=== PATIENT | female | born 1955 | race Caucasian/White ===

== ENCOUNTER 2020-06-15 14:39 | Inpatient (IN) | payer MEDICARE, MEDICAID ==
[~2020-06-15] VITALS: Ht 162.6 cm; Wt 61.8 kg
[~2020-06-15 14:39] MED LIST: METF-372 PO
[2020-06-15] MEDS ORDERED: INSULIN LANTUS (GLARGINE) 1 /0.01ml (100units/ml) SC ONE (15:15)
[2020-06-15] MEDS: SODIUM CHLORIDE 0.9% 1,000 ML IV SCH ×3 (15:15→21:45)
[2020-06-15] MEDS ORDERED: DEXTROSE (50%) 50ML SYRG IV PRN ×2 (15:15→21:45)
[2020-06-15] MEDS ORDERED: cefTRIAXone 1GM/50ML D5W 50 ML IV ONE (15:15)
[2020-06-15] MEDS ORDERED: AZITHROMYCIN 500MG/ 250ML 250 ML IV ONE (15:15)
[2020-06-15] MEDS ORDERED: InsuLIN R (HUMAN) 100 UNITS in SODIUM CHL 0.9% 99 ML IV SCH (15:15)
[2020-06-15 16:26] LABS: Basophils # (auto) 0 10 ^3/uL (0-0.2); Basophils % (auto) 0.2 % (0.0-2.0); Eosinophils # (auto) 0 10 ^3/uL (0-0.8); Eosinophils % (auto) 0.4 % (0.0-7.0); Hematocrit 32.1 % (36.0-46.0); Hemoglobin 11.1 g/dL (12.2-16.2); Lymphocytes % (auto) 8.2 % (10.0-50.0); Mean Corpuscular Hemoglobin 27.1 pg (28.0-32.0); Mean Corpuscular Hgb Conc. 34.7 g/dL (32.0-36.0); Mean Corpuscular Volume 78.1 fL (80.0-100.0); Monocytes # (auto) 0.7 10 ^3/uL (0-1.3); Neutrophils # (auto) 10.5 10 ^3/uL (1.6-8.6); Neutrophils % (auto) 85.2 % (37.0-80.0); Platelet Count (auto) 264 10^3/uL (140-450); Red Blood Cells 4.11 10^6/uL (4.0-5.20); Red Cell Distribution Width 15.6 % (11.8-14.3); White Blood Cell 12.3 10^3/uL (4.4-10.8)
[2020-06-15] MEDS ORDERED: ACCU-CHEK COMFORT CURVE STRIP VI SCH (16:30)
[2020-06-15 16:42] LABS: Magnesium 1.8 mg/dL (1.6-2.6); Potassium 3.3 mmol/L (3.5-5.1)
[2020-06-15 16:51] LABS: BUN/Creatinine Ratio 25.6; CRP High Sensitivity 15.1 mg/dL (< 0.3); Phosphorus 3.7 mg/dL (2.5-4.90)
[2020-06-15] MEDS ORDERED: SODIUM CHLORIDE 0.9% 1,000 ML IV SCH ×2 (19:15→21:15)
[2020-06-15] MEDS ORDERED: IOHEXOL 350 MG/ML 100ML IJ ONE (21:14)
[2020-06-15] MEDS ORDERED: POTASSIUM CHL 20 Meq TABLET PO ONE (21:30)
[2020-06-15] MEDS ORDERED: NITROGLYCERIN 0.4 MG SL TAB SL PRN (21:45)
[2020-06-15] MEDS ORDERED: MORPHINE SULF INJ 2 MG/ML SYRINGE 1ML IV PRN (21:45)
[2020-06-15] MEDS ORDERED: ONDANSETRON HCL 4 MG/2 ML VIAL IV PRN (21:45)
[2020-06-15] MEDS ORDERED: TEMAZEPAM 15 MG CAP PO PRN (21:45)
[2020-06-15] MEDS: BUDESONIDE (INHALATION) 180 MCG IH IN SCH (22:00)
[2020-06-15] MEDS ORDERED: ENOXAPARIN SOD 40 MG/0.4 ML SYRINGE SC SCH (22:00)
[2020-06-15] MEDS: FAMOTIDINE 20 MG TAB PO SCH (22:00)
[2020-06-15] MEDS: ENOXAPARIN SOD 80 MG/0.8ML SYRINGE SC SCH (22:51)
[2020-06-15] MEDS ORDERED: LORazepam 2MG/ML-1ML VIAL IV ONE (23:00)
[2020-06-15 23:06] LABS: Urine Bacteria FEW /hpf (None Seen); Urine Blood Negative /uL (Negative); Urine Mucus FEW (None Seen); Urine Specific Gravity > 1.050 (1.001-1.035); Urine WBC 4 /hpf (0 - 5)
[2020-06-15 23:20] LABS: Albumin 2.4 g/dL (3.4-5.0); Calcium 8.5 mg/dL (8.5-10.1); Magnesium 1.7 mg/dL (1.6-2.6); Potassium 3.4 mmol/L (3.5-5.1)
[2020-06-15 23:22] LABS: BUN/Creatinine Ratio 20.5
[2020-06-15 23:27] LABS: Bilirubin, Total 0.5 mg/dL (0.2-1.0); Total Protein 7.4 g/dL (6.4-8.2)
[2020-06-16] MEDS: InsuLIN REG 1unit/0.01ml Soln (100units/ml) SC SCH ×6 (00:03→20:00)
[2020-06-16] MEDS: ACCU-CHEK COMFORT CURVE STRIP VI SCH ×6 (00:03→20:00)
[2020-06-16] MEDS ORDERED: REMDESIVIR PER PHARMACY 0 ML IV SCH (01:00)
[2020-06-16] MEDS ORDERED: VANCOMYCIN PER PHARMACY 0 MG IV SCH (01:45)
[2020-06-16] MEDS ORDERED: VANCOMYCIN 1GM/250ML 250 ML IV ONE (01:45)
[2020-06-16 04:53] LABS: Calcium 6.4 mg/dL (8.5-10.1)
[2020-06-16 05:02] LABS: BUN/Creatinine Ratio 25.5
[2020-06-16] MEDS ORDERED: POTASSIUM CHL 20 Meq TABLET PO ONE (06:00)
[2020-06-16] MEDS ORDERED: guaiFENesin-DM 100/10mg/5ml SYR PO PRN (06:00)
[2020-06-16 06:49] LABS: Basophils # (auto) 0 10 ^3/uL (0-0.2); Basophils % (auto) 0.2 % (0.0-2.0); Eosinophils # (auto) 0.2 10 ^3/uL (0-0.8); Eosinophils % (auto) 1.4 % (0.0-7.0); Hematocrit 25.3 % (36.0-46.0); Hemoglobin 8.9 g/dL (12.2-16.2); Lymphocytes # (auto) 1.1 10 ^3/uL (0.4-5.4); Lymphocytes % (auto) 10.1 % (10.0-50.0); Mean Corpuscular Hemoglobin 27.7 pg (28.0-32.0); Mean Corpuscular Hgb Conc. 35.1 g/dL (32.0-36.0); Monocytes # (auto) 0.7 10 ^3/uL (0-1.3); Monocytes % (auto) 6.9 % (0.0-12.0); Neutrophils # (auto) 8.8 10 ^3/uL (1.6-8.6); Neutrophils % (auto) 81.4 % (37.0-80.0); Platelet Count (auto) 202 10^3/uL (140-450); Red Cell Distribution Width 15.6 % (11.8-14.3); White Blood Cell 10.8 10^3/uL (4.4-10.8)
[2020-06-16 07:22] LABS: Albumin 1.7 g/dL (3.4-5.0); BUN/Creatinine Ratio 21.1; Bilirubin, Total 0.3 mg/dL (0.2-1.0); Calcium 6.7 mg/dL (8.5-10.1); Total Protein 5.7 g/dL (6.4-8.2)
[2020-06-16] MEDS: BUDESONIDE (INHALATION) 180 MCG IH IN SCH ×3 (10:00→21:44)
[2020-06-16] MEDS: INSULIN LANTUS (GLARGINE) 1 /0.01ml (100units/ml) SC SCH (10:03)
[2020-06-16] MEDS: CHOLECALCIFEROL (VITD3) 2,000 UNIT CAP/TAB PO SCH (10:03)
[2020-06-16] MEDS: ENOXAPARIN SOD 80 MG/0.8ML SYRINGE SC SCH ×2 (10:03→21:41)
[2020-06-16] MEDS: FAMOTIDINE 20 MG TAB PO SCH ×2 (10:03→21:40)
[2020-06-16] MEDS: ZINC SULFATE 220mg CAP or TAB PO SCH (10:03)
[2020-06-16] MEDS: DexAMETHasone SOD PHOS 10MG/1ML VIAL INJ IV SCH (10:03)
[2020-06-16] MEDS: ASCORBIC ACID 1,000 MG TAB PO SCH (10:03)
[2020-06-16] MEDS: SODIUM CHLORIDE 0.9% 1,000 ML IV SCH (10:31)
[2020-06-16 10:46] LABS: Calcium 7.6 mg/dL (8.5-10.1); Potassium 3.9 mmol/L (3.5-5.1)
[2020-06-16 10:48] LABS: BUN/Creatinine Ratio 18.8
[2020-06-16] MEDS ORDERED: LOSA100T33 PO (12:00)
[2020-06-16] MEDS ORDERED: FENO160T8 PO (12:00)
[2020-06-16] MEDS ORDERED: CHOL20007 PO (12:00)
[2020-06-16] MEDS ORDERED: GLIM4TAB42 PO (12:00)
[2020-06-16] MEDS ORDERED: GEMF600T7 PO (12:00)
[2020-06-16] MEDS ORDERED: INSU1INJ19 SC (12:00)
[2020-06-16] MEDS ORDERED: LIRA18IN2 SUBCUT (12:00)
[2020-06-16] MEDS ORDERED: DexAMETHasone SOD PHOS 10MG/1ML VIAL INJ IV ONE (15:15)
[2020-06-16] MEDS ORDERED: DOXYCYCLINE 100MG/250ML 250 ML IV ONE (15:15)
[2020-06-16] MEDS ORDERED: VANCOMYCIN 1GM/250ML 250 ML IV SCH (18:00)
[2020-06-16] MEDS: DOXYCYCLINE 100MG/250ML 250 ML IV SCH (21:40)
[2020-06-17] MEDS: ACCU-CHEK COMFORT CURVE STRIP VI SCH ×6 (00:12→20:20)
[2020-06-17 00:15] VITALS: BP 154/84
[2020-06-17] MEDS: InsuLIN REG 1unit/0.01ml Soln (100units/ml) SC SCH ×6 (00:24→20:21)
[2020-06-17 00:30] VITALS: BP 144/78
[2020-06-17 01:15] VITALS: BP 143/88
[2020-06-17 06:24] LABS: Calcium 8.5 mg/dL (8.5-10.1); Potassium 3.8 mmol/L (3.5-5.1)
[2020-06-17 06:27] LABS: BUN/Creatinine Ratio 22.8
[2020-06-17 07:25] LABS: Basophils # (auto) 0 10 ^3/uL (0-0.2); Basophils % (auto) 0.3 % (0.0-2.0); Eosinophils # (auto) 0 10 ^3/uL (0-0.8); Eosinophils % (auto) 0.4 % (0.0-7.0); Hematocrit 29.8 % (36.0-46.0); Hemoglobin 10.2 g/dL (12.2-16.2); Lymphocytes # (auto) 1.1 10 ^3/uL (0.4-5.4); Lymphocytes % (auto) 9.8 % (10.0-50.0); Mean Corpuscular Hemoglobin 27.4 pg (28.0-32.0); Mean Corpuscular Hgb Conc. 34.3 g/dL (32.0-36.0); Mean Corpuscular Volume 79.8 fL (80.0-100.0); Monocytes # (auto) 0.6 10 ^3/uL (0-1.3); Monocytes % (auto) 5.1 % (0.0-12.0); Neutrophils # (auto) 9.4 10 ^3/uL (1.6-8.6); Neutrophils % (auto) 84.4 % (37.0-80.0); Platelet Count (auto) 267 10^3/uL (140-450); Red Blood Cells 3.73 10^6/uL (4.0-5.20); Red Cell Distribution Width 15.7 % (11.8-14.3); White Blood Cell 11.2 10^3/uL (4.4-10.8)
[2020-06-17] MEDS: BUDESONIDE (INHALATION) 180 MCG IH IN SCH ×2 (07:37→18:53)
[2020-06-17] MEDS: ALBUTEROL SULF HFA 90MCG INH 200DOSE IN PRN ×2 (07:38→18:53)
[2020-06-17] MEDS: CHOLECALCIFEROL (VITD3) 2,000 UNIT CAP/TAB PO SCH (08:17)
[2020-06-17] MEDS: ENOXAPARIN SOD 80 MG/0.8ML SYRINGE SC SCH ×2 (08:17→21:25)
[2020-06-17] MEDS: FAMOTIDINE 20 MG TAB PO SCH ×2 (08:17→21:23)
[2020-06-17] MEDS: ASCORBIC ACID 1,000 MG TAB PO SCH (08:17)
[2020-06-17] MEDS: ZINC SULFATE 220mg CAP or TAB PO SCH (08:17)
[2020-06-17] MEDS: DexAMETHasone SOD PHOS 10MG/1ML VIAL INJ IV SCH (08:17)
[2020-06-17] MEDS: INSULIN LANTUS (GLARGINE) 1 /0.01ml (100units/ml) SC SCH (08:18)
[2020-06-17] MEDS: DOXYCYCLINE 100MG/250ML 250 ML IV SCH ×2 (08:18→21:25)
[2020-06-17] MEDS ORDERED: DexAMETHasone SOD PHOS 10MG/1ML VIAL INJ IV SCH (10:00)
[2020-06-17] MEDS ORDERED: REMDESIVIR 200 MG in NS 210ml LOADING DOSE ADULT IV ONE (15:00)
[2020-06-18] MEDS: MIDAZOLAM DRIP 50 mg/50mL 50 ML IV SCH ×4 (01:40→19:29)
[2020-06-18] MEDS: InsuLIN REG 1unit/0.01ml Soln (100units/ml) SC SCH ×6 (02:07→20:00)
[2020-06-18] MEDS: ACCU-CHEK COMFORT CURVE STRIP VI SCH ×6 (02:08→20:00)
[2020-06-18 06:10] LABS: Basophils # (auto) 0 10 ^3/uL (0-0.2); Basophils % (auto) 0.2 % (0.0-2.0); Eosinophils # (auto) 0 10 ^3/uL (0-0.8); Eosinophils % (auto) 0.3 % (0.0-7.0); Hematocrit 30.5 % (36.0-46.0); Hemoglobin 10.4 g/dL (12.2-16.2); Lymphocytes # (auto) 1.2 10 ^3/uL (0.4-5.4); Lymphocytes % (auto) 9.9 % (10.0-50.0); Mean Corpuscular Hemoglobin 27.3 pg (28.0-32.0); Mean Corpuscular Hgb Conc. 34.1 g/dL (32.0-36.0); Mean Corpuscular Volume 80.1 fL (80.0-100.0); Monocytes # (auto) 0.6 10 ^3/uL (0-1.3); Monocytes % (auto) 4.8 % (0.0-12.0); Neutrophils # (auto) 10.2 10 ^3/uL (1.6-8.6); Neutrophils % (auto) 84.8 % (37.0-80.0); Nucleated Red Blood Cells % 0.1 %; Platelet Count (auto) 270 10^3/uL (140-450); Red Blood Cells 3.81 10^6/uL (4.0-5.20); Red Cell Distribution Width 15.9 % (11.8-14.3)
[2020-06-18 06:31] LABS: Potassium 3.2 mmol/L (3.5-5.1)
[2020-06-18 06:57] LABS: Albumin 2.3 g/dL (3.4-5.0); Bilirubin, Total 0.5 mg/dL (0.2-1.0); Calcium 8.8 mg/dL (8.5-10.1); Total Protein 7.6 g/dL (6.4-8.2)
[2020-06-18] MEDS: INSULIN LANTUS (GLARGINE) 1 /0.01ml (100units/ml) SC SCH (09:19)
[2020-06-18] MEDS: ASCORBIC ACID 1,000 MG TAB PO SCH (09:20)
[2020-06-18] MEDS: ZINC SULFATE 220mg CAP or TAB PO SCH (09:21)
[2020-06-18] MEDS: CHOLECALCIFEROL (VITD3) 2,000 UNIT CAP/TAB PO SCH (09:21)
[2020-06-18] MEDS: FAMOTIDINE 20 MG TAB PO SCH ×2 (09:22→22:00)
[2020-06-18] MEDS: DexAMETHasone SOD PHOS 10MG/1ML VIAL INJ IV SCH (09:22)
[2020-06-18] MEDS: DOXYCYCLINE 100MG/250ML 250 ML IV SCH ×2 (09:23→22:00)
[2020-06-18] MEDS: ENOXAPARIN SOD 80 MG/0.8ML SYRINGE SC SCH ×2 (09:39→22:00)
[2020-06-18] MEDS ORDERED: LORazepam 2MG/ML-1ML VIAL IV ONE (09:45)
[2020-06-18] MEDS: BUDESONIDE (INHALATION) 180 MCG IH IN SCH ×2 (10:00→20:26)
[2020-06-18] MEDS ORDERED: ETOMIDATE (2MG/ML) 20ML VIAL IV ONE (10:05)
[2020-06-18] MEDS ORDERED: SUCCINYLCHOLINE CHLORIDE 20 MG/ML 10ML VIAL IV ONE (10:06)
[2020-06-18] MEDS ORDERED: MIDAZOLAM DRIP 50 mg/50mL 50 ML IV ONE ×2 (10:20→12:37)
[2020-06-18] MEDS ORDERED: PROPOFOL 100 ML IV ONE (10:29)
[2020-06-18] MEDS ORDERED: fentaNYL Drip 2500mCg/250mlNS 250 ML IV ONE (10:45)
[2020-06-18 11:00] VITALS: BP 88/53
[2020-06-18] MEDS ORDERED: NOREPINEPHRINE 8 MG/250ML KIT 250 ML IV ONE (11:31)
[2020-06-18] MEDS: fentaNYL Drip 2500mCg/250mlNS 250 ML IV SCH ×3 (11:36→22:25)
[2020-06-18] MEDS: NOREPINEPHRINE 8 MG/250ML KIT 250 ML IV SCH (11:48)
[2020-06-18] MEDS: PROPOFOL 100 ML IV SCH ×2 (12:58→22:25)
[2020-06-18 14:06] VITALS: BP 114/65
[2020-06-18] MEDS: REMDESIVIR 100mg 100 MG in SODIUM CHL 0.9% 230 ML IV SCH (16:19)
[2020-06-18 19:39] VITALS: BP 108/65
[2020-06-18 22:08] VITALS: BP 108/65
[2020-06-19 02:14] VITALS: BP 108/65
[2020-06-19] MEDS: PROPOFOL 100 ML IV SCH ×2 (03:35→15:44)
[2020-06-19] MEDS: NOREPINEPHRINE 8 MG/250ML KIT 250 ML IV SCH (03:35)
[2020-06-19] MEDS: ACCU-CHEK COMFORT CURVE STRIP VI SCH ×6 (04:00→19:44)
[2020-06-19] MEDS: InsuLIN REG 1unit/0.01ml Soln (100units/ml) SC SCH ×6 (04:00→19:52)
[2020-06-19] MEDS: MIDAZOLAM DRIP 50 mg/50mL 50 ML IV SCH ×6 (05:25→19:08)
[2020-06-19 06:49] VITALS: BP 113/68
[2020-06-19 07:32] LABS: Basophils # (auto) 0 10 ^3/uL (0-0.2); Basophils % (auto) 0.1 % (0.0-2.0); Eosinophils # (auto) 0 10 ^3/uL (0-0.8); Eosinophils % (auto) 0.1 % (0.0-7.0); Hematocrit 30.6 % (36.0-46.0); Hemoglobin 10.3 g/dL (12.2-16.2); Lymphocytes # (auto) 1.8 10 ^3/uL (0.4-5.4); Lymphocytes % (auto) 11.5 % (10.0-50.0); Mean Corpuscular Hemoglobin 27.1 pg (28.0-32.0); Mean Corpuscular Hgb Conc. 33.5 g/dL (32.0-36.0); Monocytes # (auto) 1.3 10 ^3/uL (0-1.3); Neutrophils # (auto) 12.6 10 ^3/uL (1.6-8.6); Neutrophils % (auto) 80.3 % (37.0-80.0); Nucleated Red Blood Cells % 0.1 %; Platelet Count (auto) 395 10^3/uL (140-450); Red Blood Cells 3.78 10^6/uL (4.0-5.20); Red Cell Distribution Width 16.1 % (11.8-14.3); White Blood Cell 15.7 10^3/uL (4.4-10.8)
[2020-06-19 07:46] LABS: Potassium 3.8 mmol/L (3.5-5.1)
[2020-06-19 07:55] LABS: Albumin 2.2 g/dL (3.4-5.0); BUN/Creatinine Ratio 30.3; Bilirubin, Total 0.3 mg/dL (0.2-1.0); Calcium 8.6 mg/dL (8.5-10.1); Total Protein 7.2 g/dL (6.4-8.2)
[2020-06-19] MEDS: BUDESONIDE (INHALATION) 180 MCG IH IN SCH (09:28)
[2020-06-19] MEDS: ASCORBIC ACID 1,000 MG TAB PO SCH (10:28)
[2020-06-19] MEDS: FAMOTIDINE 20 MG TAB PO SCH ×2 (10:28→22:16)
[2020-06-19] MEDS: DexAMETHasone SOD PHOS 10MG/1ML VIAL INJ IV SCH (10:28)
[2020-06-19] MEDS: CHOLECALCIFEROL (VITD3) 2,000 UNIT CAP/TAB PO SCH (10:28)
[2020-06-19] MEDS: DOXYCYCLINE 100MG/250ML 250 ML IV SCH ×2 (10:29→22:16)
[2020-06-19] MEDS: ENOXAPARIN SOD 80 MG/0.8ML SYRINGE SC SCH ×2 (10:29→22:16)
[2020-06-19 10:32] VITALS: BP 101/57
[2020-06-19] MEDS: ZINC SULFATE 220mg CAP or TAB PO SCH (10:35)
[2020-06-19] MEDS: INSULIN LANTUS (GLARGINE) 1 /0.01ml (100units/ml) SC SCH (11:25)
[2020-06-19 13:36] VITALS: BP 109/61
[2020-06-19] MEDS: REMDESIVIR 100mg 100 MG in SODIUM CHL 0.9% 230 ML IV SCH (15:33)
[2020-06-19 18:30] VITALS: BP 108/60
[2020-06-19 22:00] VITALS: BP 127/65
[2020-06-20] MEDS: ACCU-CHEK COMFORT CURVE STRIP VI SCH ×6 (00:32→20:29)
[2020-06-20] MEDS: InsuLIN REG 1unit/0.01ml Soln (100units/ml) SC SCH ×6 (00:39→20:29)
[2020-06-20 02:10] VITALS: BP 117/60
[2020-06-20 07:33] LABS: Basophils # (auto) 0 10 ^3/uL (0-0.2); Basophils % (auto) 0.2 % (0.0-2.0); Eosinophils # (auto) 0 10 ^3/uL (0-0.8); Eosinophils % (auto) 0.1 % (0.0-7.0); Hemoglobin 10.1 g/dL (12.2-16.2); Lymphocytes # (auto) 1.2 10 ^3/uL (0.4-5.4); Lymphocytes % (auto) 12.5 % (10.0-50.0); Mean Corpuscular Hemoglobin 27.2 pg (28.0-32.0); Mean Corpuscular Hgb Conc. 33.7 g/dL (32.0-36.0); Mean Corpuscular Volume 80.6 fL (80.0-100.0); Monocytes # (auto) 0.9 10 ^3/uL (0-1.3); Monocytes % (auto) 8.8 % (0.0-12.0); Neutrophils # (auto) 7.7 10 ^3/uL (1.6-8.6); Neutrophils % (auto) 78.4 % (37.0-80.0); Platelet Count (auto) 338 10^3/uL (140-450); Red Blood Cells 3.72 10^6/uL (4.0-5.20); Red Cell Distribution Width 16.2 % (11.8-14.3); White Blood Cell 9.8 10^3/uL (4.4-10.8)
[2020-06-20 07:42] LABS: Potassium 3.9 mmol/L (3.5-5.1)
[2020-06-20 07:52] LABS: BUN/Creatinine Ratio 35.1; Bilirubin, Total 0.3 mg/dL (0.2-1.0); Calcium 8.5 mg/dL (8.5-10.1); Total Protein 6.6 g/dL (6.4-8.2)
[2020-06-20] MEDS: MIDAZOLAM DRIP 50 mg/50mL 50 ML IV SCH ×9 (07:59→22:11)
[2020-06-20] MEDS: PROPOFOL 100 ML IV SCH ×3 (08:00→14:21)
[2020-06-20] MEDS: NOREPINEPHRINE 8 MG/250ML KIT 250 ML IV SCH ×2 (08:01→21:45)
[2020-06-20] MEDS: DexAMETHasone SOD PHOS 10MG/1ML VIAL INJ IV SCH (10:13)
[2020-06-20] MEDS: ASCORBIC ACID 1,000 MG TAB PO SCH (10:14)
[2020-06-20] MEDS: ZINC SULFATE 220mg CAP or TAB PO SCH (10:14)
[2020-06-20] MEDS: FAMOTIDINE 20 MG TAB PO SCH ×2 (10:14→22:11)
[2020-06-20] MEDS: CHOLECALCIFEROL (VITD3) 2,000 UNIT CAP/TAB PO SCH (10:14)
[2020-06-20] MEDS: DOXYCYCLINE 100MG/250ML 250 ML IV SCH ×2 (10:14→22:11)
[2020-06-20] MEDS: ENOXAPARIN SOD 80 MG/0.8ML SYRINGE SC SCH ×2 (10:15→22:11)
[2020-06-20 10:23] VITALS: BP 119/58
[2020-06-20 10:48] VITALS: BP 118/58
[2020-06-20] MEDS: INSULIN LANTUS (GLARGINE) 1 /0.01ml (100units/ml) SC SCH (10:56)
[2020-06-20] MEDS: fentaNYL Drip 2500mCg/250mlNS 250 ML IV SCH ×2 (11:00→12:39)
[2020-06-20 13:31] VITALS: BP 120/67
[2020-06-20] MEDS: REMDESIVIR 100mg 100 MG in SODIUM CHL 0.9% 230 ML IV SCH (15:16)
[2020-06-20 19:06] VITALS: BP 123/62
[2020-06-20 22:21] VITALS: BP 154/73
[2020-06-21 02:30] VITALS: BP 170/72
[2020-06-21] MEDS: PROPOFOL 100 ML IV SCH ×3 (03:47→21:24)
[2020-06-21] MEDS: ACCU-CHEK COMFORT CURVE STRIP VI SCH ×7 (03:57→23:44)
[2020-06-21] MEDS: InsuLIN REG 1unit/0.01ml Soln (100units/ml) SC SCH ×7 (04:04→23:46)
[2020-06-21] MEDS: MIDAZOLAM DRIP 50 mg/50mL 50 ML IV SCH ×6 (04:07→20:45)
[2020-06-21] MEDS ORDERED: fentaNYL Drip 2500mCg/250mlNS 250 ML IV ONE (06:18)
[2020-06-21] MEDS ORDERED: PROPOFOL 100 ML IV ONE (06:25)
[2020-06-21 06:40] VITALS: BP 117/60
[2020-06-21 07:03] LABS: Hematocrit 28.7 % (36.0-46.0); Hemoglobin 9.7 g/dL (12.2-16.2); Mean Corpuscular Hemoglobin 27.5 pg (28.0-32.0); Mean Corpuscular Hgb Conc. 33.8 g/dL (32.0-36.0); Mean Corpuscular Volume 81.3 fL (80.0-100.0); Platelet Count (auto) 255 10^3/uL (140-450); Red Blood Cells 3.53 10^6/uL (4.0-5.20); Red Cell Distribution Width 16.4 % (11.8-14.3); White Blood Cell 10.1 10^3/uL (4.4-10.8)
[2020-06-21 07:07] LABS: Band Neutrophils % (manual) 0; Basophils % (manual) 0 (0.0-2.0); Blast Cells 0; Metamyelocytes % 0; Myelocytes % 0; Promyelocytes % 0; Reactive Lymphocytes 0
[2020-06-21 07:26] LABS: Potassium 4.2 mmol/L (3.5-5.1)
[2020-06-21 08:01] LABS: Albumin 1.9 g/dL (3.4-5.0); BUN/Creatinine Ratio 38.2; Bilirubin, Total 0.2 mg/dL (0.2-1.0); Calcium 8.2 mg/dL (8.5-10.1); Total Protein 6.1 g/dL (6.4-8.2)
[2020-06-21 10:40] VITALS: BP 118/54
[2020-06-21 10:41] LABS: Eosinophils % (manual) 1 (0-7); Lymphocytes % (manual) 16 (10.0-50.0); Monocytes % (manual) 3 (0-12)
[2020-06-21] MEDS: DexAMETHasone SOD PHOS 10MG/1ML VIAL INJ IV SCH (11:13)
[2020-06-21] MEDS: ENOXAPARIN SOD 80 MG/0.8ML SYRINGE SC SCH ×2 (11:13→22:34)
[2020-06-21] MEDS: ZINC SULFATE 220mg CAP or TAB PO SCH (11:14)
[2020-06-21] MEDS: FAMOTIDINE 20 MG TAB PO SCH ×2 (11:14→22:00)
[2020-06-21] MEDS: CHOLECALCIFEROL (VITD3) 2,000 UNIT CAP/TAB PO SCH (11:14)
[2020-06-21] MEDS: DOXYCYCLINE 100MG/250ML 250 ML IV SCH ×2 (11:14→22:31)
[2020-06-21] MEDS: ASCORBIC ACID 1,000 MG TAB PO SCH (11:14)
[2020-06-21] MEDS: INSULIN LANTUS (GLARGINE) 1 /0.01ml (100units/ml) SC SCH (14:17)
[2020-06-21 14:40] VITALS: BP 90/47
[2020-06-21] MEDS: REMDESIVIR 100mg 100 MG in SODIUM CHL 0.9% 230 ML IV SCH (16:44)
[2020-06-21 18:44] VITALS: BP 102/49
[2020-06-21 20:07] VITALS: BP 115/58
[2020-06-21] MEDS: SODIUM CHLORIDE 0.9% 1,000 ML IV SCH (22:31)
[2020-06-22] MEDS: fentaNYL Drip 2500mCg/250mlNS 250 ML IV SCH ×2 (01:00→19:12)
[2020-06-22] MEDS: PROPOFOL 100 ML IV SCH ×2 (02:00→11:36)
[2020-06-22 02:35] VITALS: BP 115/57
[2020-06-22] MEDS: MIDAZOLAM DRIP 50 mg/50mL 50 ML IV SCH ×8 (03:21→23:25)
[2020-06-22] MEDS: NOREPINEPHRINE 8 MG/250ML KIT 250 ML IV SCH (04:26)
[2020-06-22] MEDS: ACCU-CHEK COMFORT CURVE STRIP VI SCH ×5 (04:59→20:00)
[2020-06-22] MEDS: InsuLIN REG 1unit/0.01ml Soln (100units/ml) SC SCH ×5 (05:00→20:00)
[2020-06-22 06:15] VITALS: BP 111/50
[2020-06-22 07:24] LABS: Basophils # (auto) 0 10 ^3/uL (0-0.2); Basophils % (auto) 0.1 % (0.0-2.0); Eosinophils # (auto) 0 10 ^3/uL (0-0.8); Eosinophils % (auto) 0.3 % (0.0-7.0); Hematocrit 26.9 % (36.0-46.0); Hemoglobin 9.1 g/dL (12.2-16.2); Lymphocytes # (auto) 1.5 10 ^3/uL (0.4-5.4); Lymphocytes % (auto) 19.7 % (10.0-50.0); Mean Corpuscular Hemoglobin 27.4 pg (28.0-32.0); Mean Corpuscular Hgb Conc. 33.8 g/dL (32.0-36.0); Mean Corpuscular Volume 81.1 fL (80.0-100.0); Monocytes # (auto) 0.5 10 ^3/uL (0-1.3); Neutrophils # (auto) 5.7 10 ^3/uL (1.6-8.6); Neutrophils % (auto) 72.9 % (37.0-80.0); Nucleated Red Blood Cells % 0.1 %; Platelet Count (auto) 231 10^3/uL (140-450); Red Blood Cells 3.31 10^6/uL (4.0-5.20); White Blood Cell 7.8 10^3/uL (4.4-10.8)
[2020-06-22 07:25] LABS: Potassium 3.8 mmol/L (3.5-5.1)
[2020-06-22 07:30] LABS: BUN/Creatinine Ratio 47.8; Calcium 8.1 mg/dL (8.5-10.1)
[2020-06-22] MEDS: DOXYCYCLINE 100MG/250ML 250 ML IV SCH ×2 (07:49→22:00)
[2020-06-22] MEDS: DexAMETHasone SOD PHOS 10MG/1ML VIAL INJ IV SCH (07:49)
[2020-06-22] MEDS: FAMOTIDINE 20 MG TAB PO SCH ×2 (07:50→22:00)
[2020-06-22] MEDS: ZINC SULFATE 220mg CAP or TAB PO SCH (07:50)
[2020-06-22] MEDS: ENOXAPARIN SOD 80 MG/0.8ML SYRINGE SC SCH ×2 (07:50→22:00)
[2020-06-22] MEDS: ASCORBIC ACID 1,000 MG TAB PO SCH (07:50)
[2020-06-22] MEDS: CHOLECALCIFEROL (VITD3) 1,000UNIT=25mCg TAB PO SCH (08:18)
[2020-06-22] MEDS: INSULIN LANTUS (GLARGINE) 1 /0.01ml (100units/ml) SC SCH (10:21)
[2020-06-22] MEDS: SODIUM CHLORIDE 0.9% 1,000 ML IV SCH (10:48)
[2020-06-22 14:10] VITALS: BP 110/56
[2020-06-22] MEDS ORDERED: PROPOFOL 100 ML IV SCH (15:30)
[2020-06-22 19:20] VITALS: BP 117/49
[2020-06-22 22:50] VITALS: BP 128/53
[2020-06-23] MEDS: SODIUM CHLORIDE 0.9% 1,000 ML IV SCH ×2 (00:25→12:45)
[2020-06-23 02:36] VITALS: BP 100/45
[2020-06-23] MEDS: NOREPINEPHRINE 8 MG/250ML KIT 250 ML IV SCH (02:40)
[2020-06-23] MEDS: MIDAZOLAM DRIP 50 mg/50mL 50 ML IV SCH ×6 (02:45→22:00)
[2020-06-23] MEDS: InsuLIN REG 1unit/0.01ml Soln (100units/ml) SC SCH ×7 (04:00→23:51)
[2020-06-23] MEDS: ACCU-CHEK COMFORT CURVE STRIP VI SCH ×7 (04:00→23:50)
[2020-06-23 06:23] VITALS: BP 101/43
[2020-06-23 07:18] LABS: Basophils # (auto) 0 10 ^3/uL (0-0.2); Basophils % (auto) 0.1 % (0.0-2.0); Eosinophils # (auto) 0 10 ^3/uL (0-0.8); Eosinophils % (auto) 0.5 % (0.0-7.0); Hematocrit 27.2 % (36.0-46.0); Hemoglobin 9.2 g/dL (12.2-16.2); Lymphocytes # (auto) 1.4 10 ^3/uL (0.4-5.4); Lymphocytes % (auto) 19.3 % (10.0-50.0); Mean Corpuscular Hemoglobin 27.5 pg (28.0-32.0); Mean Corpuscular Hgb Conc. 33.8 g/dL (32.0-36.0); Mean Corpuscular Volume 81.3 fL (80.0-100.0); Monocytes # (auto) 0.6 10 ^3/uL (0-1.3); Neutrophils # (auto) 5.2 10 ^3/uL (1.6-8.6); Neutrophils % (auto) 72.1 % (37.0-80.0); Platelet Count (auto) 217 10^3/uL (140-450); Red Blood Cells 3.35 10^6/uL (4.0-5.20); Red Cell Distribution Width 15.7 % (11.8-14.3); White Blood Cell 7.2 10^3/uL (4.4-10.8)
[2020-06-23 07:32] LABS: BUN/Creatinine Ratio 36.4; Calcium 8.3 mg/dL (8.5-10.1); Potassium 4.1 mmol/L (3.5-5.1)
[2020-06-23] MEDS: DexAMETHasone SOD PHOS 10MG/1ML VIAL INJ IV SCH (07:55)
[2020-06-23] MEDS: DOXYCYCLINE 100MG/250ML 250 ML IV SCH ×2 (07:56→22:08)
[2020-06-23] MEDS: ASCORBIC ACID 1,000 MG TAB PO SCH (07:56)
[2020-06-23] MEDS: CHOLECALCIFEROL (VITD3) 1,000UNIT=25mCg TAB PO SCH (07:56)
[2020-06-23] MEDS: INSULIN LANTUS (GLARGINE) 1 /0.01ml (100units/ml) SC SCH (07:56)
[2020-06-23] MEDS: FAMOTIDINE 20 MG TAB PO SCH ×2 (07:56→22:07)
[2020-06-23] MEDS: ZINC SULFATE 220mg CAP or TAB PO SCH (07:56)
[2020-06-23] MEDS: ENOXAPARIN SOD 80 MG/0.8ML SYRINGE SC SCH ×2 (08:03→22:07)
[2020-06-23 10:36] VITALS: BP 107/47
[2020-06-23] MEDS: fentaNYL Drip 2500mCg/250mlNS 250 ML IV SCH (12:43)
[2020-06-23 14:30] VITALS: BP 124/57
[2020-06-23 18:46] VITALS: BP 119/49
[2020-06-23 21:58] VITALS: BP 140/58
[2020-06-24] VITALS (95 sets, daily range): BP systolic 89–160; BP diastolic 42–68
[2020-06-24] MEDS: SODIUM CHLORIDE 0.9% 1,000 ML IV SCH ×2 (03:30→16:25)
[2020-06-24] MEDS: InsuLIN REG 1unit/0.01ml Soln (100units/ml) SC SCH ×5 (03:39→23:46)
[2020-06-24] MEDS: ACCU-CHEK COMFORT CURVE STRIP VI SCH ×5 (03:39→23:46)
[2020-06-24 06:50] LABS: Basophils # (auto) 0 10 ^3/uL (0-0.2); Basophils % (auto) 0.4 % (0.0-2.0); Eosinophils # (auto) 0 10 ^3/uL (0-0.8); Eosinophils % (auto) 0.8 % (0.0-7.0); Hematocrit 26.3 % (36.0-46.0); Hemoglobin 8.8 g/dL (12.2-16.2); Lymphocytes # (auto) 1.1 10 ^3/uL (0.4-5.4); Lymphocytes % (auto) 20.9 % (10.0-50.0); Mean Corpuscular Hemoglobin 27.4 pg (28.0-32.0); Mean Corpuscular Hgb Conc. 33.3 g/dL (32.0-36.0); Mean Corpuscular Volume 82.2 fL (80.0-100.0); Monocytes # (auto) 0.4 10 ^3/uL (0-1.3); Monocytes % (auto) 7.2 % (0.0-12.0); Neutrophils # (auto) 3.7 10 ^3/uL (1.6-8.6); Neutrophils % (auto) 70.7 % (37.0-80.0); Nucleated Red Blood Cells % 0.1 %; Platelet Count (auto) 160 10^3/uL (140-450); White Blood Cell 5.2 10^3/uL (4.4-10.8)
[2020-06-24 07:11] LABS: Potassium 3.9 mmol/L (3.5-5.1)
[2020-06-24 07:18] LABS: BUN/Creatinine Ratio 42.9
[2020-06-24] MEDS: ENOXAPARIN SOD 80 MG/0.8ML SYRINGE SC SCH ×2 (10:00→21:32)
[2020-06-24] MEDS: DOXYCYCLINE 100MG/250ML 250 ML IV SCH ×2 (10:00→21:32)
[2020-06-24] MEDS: FAMOTIDINE 20 MG TAB PO SCH ×2 (10:00→21:32)
[2020-06-24] MEDS: ASCORBIC ACID 1,000 MG TAB PO SCH (10:00)
[2020-06-24] MEDS: DexAMETHasone SOD PHOS 10MG/1ML VIAL INJ IV SCH (10:00)
[2020-06-24] MEDS: INSULIN LANTUS (GLARGINE) 1 /0.01ml (100units/ml) SC SCH (10:00)
[2020-06-24] MEDS: CHOLECALCIFEROL (VITD3) 1,000UNIT=25mCg TAB PO SCH (10:00)
[2020-06-24] MEDS: ZINC SULFATE 220mg CAP or TAB PO SCH (10:00)
[2020-06-24] MEDS: MIDAZOLAM DRIP 50 mg/50mL 50 ML IV SCH ×3 (11:35→21:31)
[2020-06-24] MEDS ORDERED: PROPOFOL 100 ML IV ONE (12:11)
[2020-06-24] MEDS: PROPOFOL 100 ML IV SCH (12:42)
[2020-06-25] VITALS (99 sets, daily range): BP systolic 85–152; BP diastolic 35–102
[2020-06-25] MEDS: SODIUM CHLORIDE 0.9% 1,000 ML IV SCH ×2 (00:16→12:10)
[2020-06-25] MEDS: fentaNYL Drip 2500mCg/250mlNS 250 ML IV SCH ×2 (00:37→12:00)
[2020-06-25] MEDS: MIDAZOLAM DRIP 50 mg/50mL 50 ML IV SCH ×7 (00:38→21:25)
[2020-06-25 03:37] LABS: Basophils # (auto) 0 10 ^3/uL (0-0.2); Basophils % (auto) 0.1 % (0.0-2.0); Eosinophils # (auto) 0 10 ^3/uL (0-0.8); Eosinophils % (auto) 0.7 % (0.0-7.0); Hematocrit 25.4 % (36.0-46.0); Hemoglobin 8.7 g/dL (12.2-16.2); Lymphocytes % (auto) 18.5 % (10.0-50.0); Mean Corpuscular Hemoglobin 27.7 pg (28.0-32.0); Mean Corpuscular Volume 81.5 fL (80.0-100.0); Monocytes # (auto) 0.4 10 ^3/uL (0-1.3); Monocytes % (auto) 7.5 % (0.0-12.0); Neutrophils % (auto) 73.2 % (37.0-80.0); Platelet Count (auto) 161 10^3/uL (140-450); Red Blood Cells 3.12 10^6/uL (4.0-5.20); Red Cell Distribution Width 15.7 % (11.8-14.3); White Blood Cell 5.4 10^3/uL (4.4-10.8)
[2020-06-25] MEDS: InsuLIN REG 1unit/0.01ml Soln (100units/ml) SC SCH ×4 (03:42→18:08)
[2020-06-25] MEDS: ACCU-CHEK COMFORT CURVE STRIP VI SCH ×4 (03:42→17:51)
[2020-06-25 03:52] LABS: Calcium 7.9 mg/dL (8.5-10.1); Potassium 3.8 mmol/L (3.5-5.1)
[2020-06-25] MEDS: DOXYCYCLINE 100MG/250ML 250 ML IV SCH ×2 (08:49→22:00)
[2020-06-25] MEDS: ZINC SULFATE 220mg CAP or TAB PO SCH (09:55)
[2020-06-25] MEDS: FAMOTIDINE 20 MG TAB PO SCH ×2 (09:55→22:00)
[2020-06-25] MEDS: ASCORBIC ACID 1,000 MG TAB PO SCH (09:55)
[2020-06-25] MEDS: DexAMETHasone SOD PHOS 10MG/1ML VIAL INJ IV SCH (09:55)
[2020-06-25] MEDS: CHOLECALCIFEROL (VITD3) 1,000UNIT=25mCg TAB PO SCH (09:55)
[2020-06-25] MEDS: INSULIN LANTUS (GLARGINE) 1 /0.01ml (100units/ml) SC SCH (09:56)
[2020-06-25] MEDS: ENOXAPARIN SOD 80 MG/0.8ML SYRINGE SC SCH ×2 (09:56→22:00)
[2020-06-25] MEDS ORDERED: DEXTROSE (50%) 50ML SYRG IV PRN (12:15)
[2020-06-25] MEDS: PROPOFOL 100 ML IV SCH ×2 (12:15→23:02)
[2020-06-26] VITALS (88 sets, daily range): BP systolic 84–176; BP diastolic 36–97
[2020-06-26] MEDS: fentaNYL Drip 2500mCg/250mlNS 250 ML IV SCH ×3 (01:25→23:15)
[2020-06-26] MEDS: ACCU-CHEK COMFORT CURVE STRIP VI SCH ×4 (06:10→17:49)
[2020-06-26] MEDS: InsuLIN REG 1unit/0.01ml Soln (100units/ml) SC SCH ×4 (06:11→17:51)
[2020-06-26 06:52] LABS: Basophils # (auto) 0 10 ^3/uL (0-0.2); Basophils % (auto) 0.3 % (0.0-2.0); Eosinophils # (auto) 0 10 ^3/uL (0-0.8); Eosinophils % (auto) 0.6 % (0.0-7.0); Hemoglobin 8.9 g/dL (12.2-16.2); Lymphocytes # (auto) 1.1 10 ^3/uL (0.4-5.4); Lymphocytes % (auto) 24.8 % (10.0-50.0); Mean Corpuscular Hemoglobin 27.7 pg (28.0-32.0); Mean Corpuscular Hgb Conc. 34.2 g/dL (32.0-36.0); Monocytes # (auto) 0.3 10 ^3/uL (0-1.3); Monocytes % (auto) 7.9 % (0.0-12.0); Neutrophils # (auto) 2.9 10 ^3/uL (1.6-8.6); Neutrophils % (auto) 66.4 % (37.0-80.0); Platelet Count (auto) 132 10^3/uL (140-450); Red Cell Distribution Width 15.3 % (11.8-14.3); White Blood Cell 4.4 10^3/uL (4.4-10.8)
[2020-06-26 07:08] LABS: BUN/Creatinine Ratio 33.3; Calcium 8.1 mg/dL (8.5-10.1); Potassium 3.6 mmol/L (3.5-5.1)
[2020-06-26] MEDS: MIDAZOLAM DRIP 50 mg/50mL 50 ML IV SCH ×4 (08:00→23:14)
[2020-06-26] MEDS: DexAMETHasone SOD PHOS 10MG/1ML VIAL INJ IV SCH (10:00)
[2020-06-26] MEDS: DOXYCYCLINE 100MG/250ML 250 ML IV SCH ×2 (10:01→22:00)
[2020-06-26] MEDS: ASCORBIC ACID 1,000 MG TAB PO SCH (10:02)
[2020-06-26] MEDS: ZINC SULFATE 220mg CAP or TAB PO SCH (10:02)
[2020-06-26] MEDS: FAMOTIDINE 20 MG TAB PO SCH ×2 (10:02→22:00)
[2020-06-26] MEDS: CHOLECALCIFEROL (VITD3) 1,000UNIT=25mCg TAB PO SCH (10:03)
[2020-06-26] MEDS: ENOXAPARIN SOD 80 MG/0.8ML SYRINGE SC SCH ×2 (10:03→22:00)
[2020-06-26] MEDS: INSULIN LANTUS (GLARGINE) 1 /0.01ml (100units/ml) SC SCH (10:08)
[2020-06-26] MEDS: SODIUM CHLORIDE 0.9% 1,000 ML IV SCH ×2 (14:57→21:45)
[2020-06-26] MEDS ORDERED: NOREPINEPHRINE 8 MG/250ML KIT 250 ML IV ONE (20:34)
[2020-06-26] MEDS: PROPOFOL 100 ML IV SCH (23:14)
[2020-06-27] VITALS (94 sets, daily range): BP systolic 84–164; BP diastolic 44–89
[2020-06-27] MEDS: MIDAZOLAM DRIP 50 mg/50mL 50 ML IV SCH ×7 (03:25→23:00)
[2020-06-27] MEDS: ACCU-CHEK COMFORT CURVE STRIP VI SCH ×4 (05:40→17:30)
[2020-06-27] MEDS: InsuLIN REG 1unit/0.01ml Soln (100units/ml) SC SCH ×4 (05:40→17:45)
[2020-06-27 06:10] LABS: Basophils # (auto) 0 10 ^3/uL (0-0.2); Basophils % (auto) 0.1 % (0.0-2.0); Eosinophils # (auto) 0 10 ^3/uL (0-0.8); Eosinophils % (auto) 0.7 % (0.0-7.0); Hematocrit 26.8 % (36.0-46.0); Hemoglobin 9.2 g/dL (12.2-16.2); Lymphocytes # (auto) 1.5 10 ^3/uL (0.4-5.4); Lymphocytes % (auto) 21.1 % (10.0-50.0); Mean Corpuscular Hemoglobin 27.7 pg (28.0-32.0); Mean Corpuscular Hgb Conc. 34.2 g/dL (32.0-36.0); Monocytes # (auto) 0.6 10 ^3/uL (0-1.3); Monocytes % (auto) 8.4 % (0.0-12.0); Neutrophils # (auto) 4.9 10 ^3/uL (1.6-8.6); Neutrophils % (auto) 69.7 % (37.0-80.0); Nucleated Red Blood Cells % 0.1 %; Platelet Count (auto) 199 10^3/uL (140-450); Red Blood Cells 3.31 10^6/uL (4.0-5.20); Red Cell Distribution Width 16.3 % (11.8-14.3)
[2020-06-27 06:20] LABS: BUN/Creatinine Ratio 27.8; Calcium 7.9 mg/dL (8.5-10.1); Potassium 3.3 mmol/L (3.5-5.1)
[2020-06-27] MEDS: PROPOFOL 100 ML IV SCH (09:42)
[2020-06-27] MEDS: FAMOTIDINE 20 MG TAB PO SCH ×2 (09:47→22:00)
[2020-06-27] MEDS: ZINC SULFATE 220mg CAP or TAB PO SCH (09:47)
[2020-06-27] MEDS: CHOLECALCIFEROL (VITD3) 1,000UNIT=25mCg TAB PO SCH (09:48)
[2020-06-27] MEDS: ASCORBIC ACID 1,000 MG TAB PO SCH (09:48)
[2020-06-27] MEDS: INSULIN LANTUS (GLARGINE) 1 /0.01ml (100units/ml) SC SCH (09:49)
[2020-06-27] MEDS: ENOXAPARIN SOD 80 MG/0.8ML SYRINGE SC SCH ×2 (09:50→22:00)
[2020-06-27] MEDS: DOXYCYCLINE 100MG/250ML 250 ML IV SCH ×2 (10:53→22:00)
[2020-06-27] MEDS: POTASSIUM CHL 20MEQ/100ML 100 ML IV SCH ×2 (11:22→14:22)
[2020-06-27] MEDS: fentaNYL Drip 2500mCg/250mlNS 250 ML IV SCH (11:30)
[2020-06-27] MEDS: ACETAMINOPHEN 500 MG TAB PO PRN (15:32)
[2020-06-27] MEDS ORDERED: TPN PER PHARMACY 0 ML IV SCH (16:00)
[2020-06-27] MEDS ORDERED: POTASSIUM CHL 20MEQ/100ML 100 ML IV ONE (17:00)
[2020-06-27] MEDS ORDERED: DEXTROSE (50%) 50ML SYRG IV SCH (18:00)
[2020-06-27] MEDS ORDERED: NOREPINEPHRINE 8 MG/250ML KIT 250 ML IV SCH (19:15)
[2020-06-27] MEDS ORDERED: AMINO ACID INFUSION IN D10W 1,000 ML IV NR (20:00)
[2020-06-28] VITALS (91 sets, daily range): BP systolic 71–145; BP diastolic 31–71
[2020-06-28] MEDS: MIDAZOLAM DRIP 50 mg/50mL 50 ML IV SCH ×10 (01:39→22:45)
[2020-06-28] MEDS: PROPOFOL 100 ML IV SCH ×4 (01:40→23:26)
[2020-06-28] MEDS: fentaNYL Drip 2500mCg/250mlNS 250 ML IV SCH ×2 (03:36→14:21)
[2020-06-28] MEDS: ACCU-CHEK COMFORT CURVE STRIP VI SCH ×4 (06:00→19:15)
[2020-06-28] MEDS: InsuLIN REG 1unit/0.01ml Soln (100units/ml) SC SCH ×4 (06:00→18:00)
[2020-06-28 06:10] LABS: Albumin 1.6 g/dL (3.4-5.0); Calcium 7.6 mg/dL (8.5-10.1); Magnesium 1.5 mg/dL (1.6-2.6)
[2020-06-28 06:15] LABS: Bilirubin, Total 0.4 mg/dL (0.2-1.0); Phosphorus 2.8 mg/dL (2.5-4.90); Total Protein 5.1 g/dL (6.4-8.2)
[2020-06-28] MEDS: NOREPINEPHRINE 8 MG/250ML KIT 250 ML IV SCH ×2 (10:00→23:00)
[2020-06-28] MEDS: DOXYCYCLINE 100MG/250ML 250 ML IV SCH ×2 (10:42→21:16)
[2020-06-28] MEDS: ZINC SULFATE 220mg CAP or TAB PO SCH (10:42)
[2020-06-28] MEDS: FAMOTIDINE 20 MG TAB PO SCH ×2 (10:42→21:16)
[2020-06-28] MEDS: ASCORBIC ACID 1,000 MG TAB PO SCH (10:43)
[2020-06-28] MEDS: ENOXAPARIN SOD 80 MG/0.8ML SYRINGE SC SCH ×2 (10:43→22:00)
[2020-06-28] MEDS: CHOLECALCIFEROL (VITD3) 1,000UNIT=25mCg TAB PO SCH (10:43)
[2020-06-28] MEDS: INSULIN LANTUS (GLARGINE) 1 /0.01ml (100units/ml) SC SCH (10:44)
[2020-06-28] MEDS: POTASSIUM CHL 20MEQ/100ML 100 ML IV SCH ×3 (12:11→19:13)
[2020-06-28] MEDS: MAGNESIUM SULFATE 1GM/100ML 100 ML IV SCH ×2 (12:54→13:39)
[2020-06-28] MEDS: ACETAMINOPHEN 500 MG TAB PO PRN (16:22)
[2020-06-28] MEDS ORDERED: POTASSIUM CHL 20MEQ/100ML 100 ML IV SCH (18:45)
[2020-06-28] MEDS ORDERED: TPN PER PHARMACY IV NR ×5 (20:00)
[2020-06-29] VITALS (86 sets, daily range): BP systolic 75–176; BP diastolic 32–72
[2020-06-29] MEDS: ACCU-CHEK COMFORT CURVE STRIP VI SCH ×5 (00:22→23:53)
[2020-06-29] MEDS: ACETAMINOPHEN 500 MG TAB PO PRN ×2 (00:23→08:21)
[2020-06-29] MEDS: fentaNYL Drip 2500mCg/250mlNS 250 ML IV SCH (01:32)
[2020-06-29 04:18] LABS: Albumin 1.6 g/dL (3.4-5.0); Calcium 7.6 mg/dL (8.5-10.1); Magnesium 1.7 mg/dL (1.6-2.6); Potassium 3.1 mmol/L (3.5-5.1)
[2020-06-29 04:23] LABS: BUN/Creatinine Ratio 12.8; Bilirubin, Total 0.4 mg/dL (0.2-1.0); Phosphorus 2.3 mg/dL (2.5-4.90); Total Protein 5.3 g/dL (6.4-8.2)
[2020-06-29] MEDS: MIDAZOLAM DRIP 50 mg/50mL 50 ML IV SCH ×7 (06:00→21:00)
[2020-06-29] MEDS: InsuLIN REG 1unit/0.01ml Soln (100units/ml) SC SCH ×5 (06:17→23:47)
[2020-06-29] MEDS: DOXYCYCLINE 100MG/250ML 250 ML IV SCH ×2 (08:21→22:00)
[2020-06-29] MEDS: ASCORBIC ACID 1,000 MG TAB PO SCH (08:22)
[2020-06-29] MEDS: FAMOTIDINE 20 MG TAB PO SCH ×2 (08:22→22:00)
[2020-06-29] MEDS: ZINC SULFATE 220mg CAP or TAB PO SCH (08:22)
[2020-06-29] MEDS: CHOLECALCIFEROL (VITD3) 1,000UNIT=25mCg TAB PO SCH (08:23)
[2020-06-29] MEDS: ENOXAPARIN SOD 80 MG/0.8ML SYRINGE SC SCH ×2 (10:24→22:00)
[2020-06-29] MEDS: INSULIN LANTUS (GLARGINE) 1 /0.01ml (100units/ml) SC SCH (10:49)
[2020-06-29] MEDS: POTASSIUM CHL 20MEQ/100ML 100 ML IV SCH ×2 (10:59→13:00)
[2020-06-29] MEDS ORDERED: POTASSIUM PHOSPHATE 22 MEQ in SODIUM CHL 0.9% 100 ML IV ONE (13:00)
[2020-06-29] MEDS ORDERED: TPN PER PHARMACY IV NR ×8 (20:00)
[2020-06-29] MEDS: PROPOFOL 100 ML IV SCH (20:30)
[2020-06-29] MEDS: NOREPINEPHRINE 8 MG/250ML KIT 250 ML IV SCH (23:21)
[2020-06-30] VITALS (89 sets, daily range): BP systolic 88–145; BP diastolic 20–61
[2020-06-30] MEDS: MIDAZOLAM DRIP 50 mg/50mL 50 ML IV SCH ×7 (02:00→21:25)
[2020-06-30 04:51] LABS: Basophils # (auto) 0 10 ^3/uL (0-0.2); Basophils % (auto) 0.3 % (0.0-2.0); Eosinophils # (auto) 0.4 10 ^3/uL (0-0.8); Eosinophils % (auto) 4.1 % (0.0-7.0); Hemoglobin 10.1 g/dL (12.2-16.2); Lymphocytes # (auto) 1.5 10 ^3/uL (0.4-5.4); Lymphocytes % (auto) 17.9 % (10.0-50.0); Mean Corpuscular Hemoglobin 27.4 pg (28.0-32.0); Mean Corpuscular Hgb Conc. 33.9 g/dL (32.0-36.0); Mean Corpuscular Volume 80.9 fL (80.0-100.0); Monocytes # (auto) 0.6 10 ^3/uL (0-1.3); Monocytes % (auto) 6.6 % (0.0-12.0); Neutrophils # (auto) 6.1 10 ^3/uL (1.6-8.6); Neutrophils % (auto) 71.1 % (37.0-80.0); Nucleated Red Blood Cells % 0.2 %; Platelet Count (auto) 164 10^3/uL (140-450); Red Cell Distribution Width 16.7 % (11.8-14.3); White Blood Cell 8.5 10^3/uL (4.4-10.8)
[2020-06-30 05:03] LABS: Albumin 1.6 g/dL (3.4-5.0); Calcium 7.7 mg/dL (8.5-10.1); Magnesium 1.8 mg/dL (1.6-2.6)
[2020-06-30 05:07] LABS: BUN/Creatinine Ratio 15.6; Bilirubin, Total 0.3 mg/dL (0.2-1.0); Phosphorus 2.7 mg/dL (2.5-4.90); Total Protein 5.9 g/dL (6.4-8.2)
[2020-06-30] MEDS: InsuLIN REG 1unit/0.01ml Soln (100units/ml) SC SCH ×3 (06:00→18:38)
[2020-06-30] MEDS: ACCU-CHEK COMFORT CURVE STRIP VI SCH ×3 (06:00→18:00)
[2020-06-30] MEDS: FAMOTIDINE 20 MG TAB PO SCH ×2 (08:54→22:00)
[2020-06-30] MEDS: ASCORBIC ACID 1,000 MG TAB PO SCH (08:54)
[2020-06-30] MEDS: ZINC SULFATE 220mg CAP or TAB PO SCH (08:54)
[2020-06-30] MEDS: DOXYCYCLINE 100MG/250ML 250 ML IV SCH ×2 (08:54→22:00)
[2020-06-30] MEDS: CHOLECALCIFEROL (VITD3) 1,000UNIT=25mCg TAB PO SCH (08:55)
[2020-06-30] MEDS: ENOXAPARIN SOD 80 MG/0.8ML SYRINGE SC SCH ×2 (08:55→22:00)
[2020-06-30] MEDS: INSULIN LANTUS (GLARGINE) 1 /0.01ml (100units/ml) SC SCH (10:32)
[2020-06-30] MEDS: fentaNYL Drip 2500mCg/250mlNS 250 ML IV SCH ×2 (11:00→23:00)
[2020-06-30] MEDS: POTASSIUM CHL 20MEQ/100ML 100 ML IV SCH ×2 (12:14→14:21)
[2020-06-30] MEDS: ACETAMINOPHEN 500 MG TAB PO PRN (13:05)
[2020-06-30 14:20] LABS: Calcium 7.8 mg/dL (8.5-10.1); Potassium 3.5 mmol/L (3.5-5.1)
[2020-06-30] MEDS ORDERED: POTASSIUM PHOSP 22MEQ(15MMOLE) in NS 100 ML IV ONE (15:00)
[2020-06-30] MEDS ORDERED: TPN PER PHARMACY IV NR ×8 (20:00)
[2020-07-01] VITALS (89 sets, daily range): BP systolic 87–164; BP diastolic 40–101
[2020-07-01] MEDS: MIDAZOLAM DRIP 50 mg/50mL 50 ML IV SCH ×4 (00:45→10:45)
[2020-07-01 05:30] LABS: Basophils # (auto) 0 10 ^3/uL (0-0.2); Basophils % (auto) 0.3 % (0.0-2.0); Eosinophils # (auto) 0.2 10 ^3/uL (0-0.8); Eosinophils % (auto) 3.3 % (0.0-7.0); Hematocrit 27.6 % (36.0-46.0); Hemoglobin 9.5 g/dL (12.2-16.2); Lymphocytes # (auto) 1.5 10 ^3/uL (0.4-5.4); Mean Corpuscular Hgb Conc. 34.3 g/dL (32.0-36.0); Mean Corpuscular Volume 81.7 fL (80.0-100.0); Monocytes # (auto) 0.5 10 ^3/uL (0-1.3); Monocytes % (auto) 6.4 % (0.0-12.0); Neutrophils # (auto) 4.9 10 ^3/uL (1.6-8.6); Nucleated Red Blood Cells % 0.1 %; Platelet Count (auto) 161 10^3/uL (140-450); Red Blood Cells 3.38 10^6/uL (4.0-5.20); White Blood Cell 7.1 10^3/uL (4.4-10.8)
[2020-07-01 05:47] LABS: Potassium 3.6 mmol/L (3.5-5.1)
[2020-07-01] MEDS: ACCU-CHEK COMFORT CURVE STRIP VI SCH ×5 (05:54→23:18)
[2020-07-01 05:57] LABS: Albumin 1.6 g/dL (3.4-5.0); Bilirubin, Total 0.3 mg/dL (0.2-1.0); Calcium 7.9 mg/dL (8.5-10.1); Phosphorus 2.4 mg/dL (2.5-4.90); Total Protein 5.9 g/dL (6.4-8.2)
[2020-07-01] MEDS: InsuLIN REG 1unit/0.01ml Soln (100units/ml) SC SCH ×5 (06:09→23:16)
[2020-07-01] MEDS: NOREPINEPHRINE 8 MG/250ML KIT 250 ML IV SCH (10:00)
[2020-07-01] MEDS: ZINC SULFATE 220mg CAP or TAB PO SCH (10:34)
[2020-07-01] MEDS: DOXYCYCLINE 100MG/250ML 250 ML IV SCH ×2 (10:34→22:00)
[2020-07-01] MEDS: ASCORBIC ACID 1,000 MG TAB PO SCH (10:35)
[2020-07-01] MEDS: CHOLECALCIFEROL (VITD3) 1,000UNIT=25mCg TAB PO SCH (10:35)
[2020-07-01] MEDS: FAMOTIDINE 20 MG TAB PO SCH ×2 (10:35→22:00)
[2020-07-01] MEDS: INSULIN LANTUS (GLARGINE) 1 /0.01ml (100units/ml) SC SCH (10:36)
[2020-07-01] MEDS: ENOXAPARIN SOD 80 MG/0.8ML SYRINGE SC SCH ×2 (10:36→22:00)
[2020-07-01] MEDS: PROPOFOL 100 ML IV SCH (12:15)
[2020-07-01] MEDS ORDERED: SODIUM PHOSP 20MEQ(15MMOL) IN NS 100 ML IV ONE (13:00)
[2020-07-01] MEDS: ACETAMINOPHEN 500 MG TAB PO PRN (15:00)
[2020-07-01] MEDS ORDERED: TPN PER PHARMACY IV NR ×9 (20:00)
[2020-07-01] MEDS: fentaNYL Drip 2500mCg/250mlNS 250 ML IV SCH (23:17)
[2020-07-02] VITALS (94 sets, daily range): BP systolic 85–190; BP diastolic 38–78
[2020-07-02] MEDS: MIDAZOLAM DRIP 50 mg/50mL 50 ML IV SCH ×9 (00:05→19:35)
[2020-07-02 04:10] LABS: Basophils # (auto) 0 10 ^3/uL (0-0.2); Basophils % (auto) 0.5 % (0.0-2.0); Eosinophils # (auto) 0.2 10 ^3/uL (0-0.8); Eosinophils % (auto) 4.1 % (0.0-7.0); Hematocrit 25.3 % (36.0-46.0); Hemoglobin 8.6 g/dL (12.2-16.2); Lymphocytes # (auto) 1.5 10 ^3/uL (0.4-5.4); Lymphocytes % (auto) 24.7 % (10.0-50.0); Mean Corpuscular Hemoglobin 27.7 pg (28.0-32.0); Mean Corpuscular Hgb Conc. 34.2 g/dL (32.0-36.0); Monocytes # (auto) 0.6 10 ^3/uL (0-1.3); Monocytes % (auto) 9.1 % (0.0-12.0); Neutrophils # (auto) 3.8 10 ^3/uL (1.6-8.6); Neutrophils % (auto) 61.6 % (37.0-80.0); Platelet Count (auto) 149 10^3/uL (140-450); Red Blood Cells 3.12 10^6/uL (4.0-5.20); Red Cell Distribution Width 17.8 % (11.8-14.3); White Blood Cell 6.1 10^3/uL (4.4-10.8)
[2020-07-02 04:20] LABS: Potassium 3.8 mmol/L (3.5-5.1)
[2020-07-02 04:27] LABS: Albumin 1.5 g/dL (3.4-5.0); BUN/Creatinine Ratio 30.2; Bilirubin, Total 0.3 mg/dL (0.2-1.0); Calcium 7.6 mg/dL (8.5-10.1); Magnesium 1.9 mg/dL (1.6-2.6); Phosphorus 3.3 mg/dL (2.5-4.90); Total Protein 5.6 g/dL (6.4-8.2)
[2020-07-02] MEDS: ACETAMINOPHEN 500 MG TAB PO PRN ×2 (05:03→17:20)
[2020-07-02] MEDS: InsuLIN REG 1unit/0.01ml Soln (100units/ml) SC SCH ×3 (06:04→18:04)
[2020-07-02] MEDS: ACCU-CHEK COMFORT CURVE STRIP VI SCH ×3 (06:12→18:04)
[2020-07-02] MEDS: PROPOFOL 100 ML IV SCH ×3 (06:46→20:00)
[2020-07-02] MEDS: ZINC SULFATE 220mg CAP or TAB PO SCH (09:44)
[2020-07-02] MEDS: DOXYCYCLINE 100MG/250ML 250 ML IV SCH ×2 (09:44→20:03)
[2020-07-02] MEDS: ASCORBIC ACID 1,000 MG TAB PO SCH (09:45)
[2020-07-02] MEDS: CHOLECALCIFEROL (VITD3) 1,000UNIT=25mCg TAB PO SCH (09:45)
[2020-07-02] MEDS: FAMOTIDINE 20 MG TAB PO SCH ×2 (09:45→20:02)
[2020-07-02] MEDS: INSULIN LANTUS (GLARGINE) 1 /0.01ml (100units/ml) SC SCH (09:46)
[2020-07-02] MEDS: ENOXAPARIN SOD 80 MG/0.8ML SYRINGE SC SCH ×2 (10:00→20:03)
[2020-07-02] MEDS: fentaNYL Drip 2500mCg/250mlNS 250 ML IV SCH ×2 (10:13→21:42)
[2020-07-02] MEDS: NOREPINEPHRINE 8 MG/250ML KIT 250 ML IV SCH (10:16)
[2020-07-02] MEDS: TPN PER PHARMACY IV NR ×9 (20:00)
[2020-07-03] VITALS (93 sets, daily range): BP systolic 81–142; BP diastolic 36–59
[2020-07-03] MEDS: PROPOFOL 100 ML IV SCH ×3 (00:15→22:17)
[2020-07-03] MEDS: MIDAZOLAM DRIP 50 mg/50mL 50 ML IV SCH ×5 (01:10→21:30)
[2020-07-03] MEDS: InsuLIN REG 1unit/0.01ml Soln (100units/ml) SC SCH ×5 (01:11→18:00)
[2020-07-03] MEDS: ACCU-CHEK COMFORT CURVE STRIP VI SCH ×4 (01:11→18:00)
[2020-07-03 06:11] LABS: INR 1.03 (0.9-1.15); Partial Thromboplastin Time 28.2 sec (23.0-31.2)
[2020-07-03 06:12] LABS: INR 1.02 (0.9-1.15)
[2020-07-03 06:17] LABS: Albumin 1.4 g/dL (3.4-5.0); Calcium 7.9 mg/dL (8.5-10.1); Magnesium 2.1 mg/dL (1.6-2.6); Potassium 4.4 mmol/L (3.5-5.1)
[2020-07-03 06:22] LABS: Bilirubin, Total 0.2 mg/dL (0.2-1.0); Phosphorus 3.5 mg/dL (2.5-4.90); Total Protein 5.6 g/dL (6.4-8.2)
[2020-07-03] MEDS: ENOXAPARIN SOD 80 MG/0.8ML SYRINGE SC SCH ×3 (10:00→20:45)
[2020-07-03] MEDS: INSULIN LANTUS (GLARGINE) 1 /0.01ml (100units/ml) SC SCH (10:00)
[2020-07-03] MEDS: ZINC SULFATE 220mg CAP or TAB PO SCH (10:34)
[2020-07-03] MEDS: ASCORBIC ACID 1,000 MG TAB PO SCH (10:35)
[2020-07-03] MEDS: CHOLECALCIFEROL (VITD3) 1,000UNIT=25mCg TAB PO SCH (10:35)
[2020-07-03] MEDS: FAMOTIDINE 20 MG TAB PO SCH ×2 (10:35→19:48)
[2020-07-03] MEDS: fentaNYL Drip 2500mCg/250mlNS 250 ML IV SCH ×2 (11:46→23:36)
[2020-07-03] MEDS ORDERED: LIDOCAINE 1% HCL (LOCAL ANESTH.) INJ 20ML MDV ONE (13:55)
[2020-07-03] MEDS ORDERED: BUPIVACAINE W/ EPINEPH 0.25% INJ 50ML MDV ONE (14:06)
[2020-07-03] MEDS ORDERED: HYDROmorphone HCL 2 MG/ML VL ONE (15:00)
[2020-07-03] MEDS ORDERED: fentaNYL CITRATE 100 MCG/2 ML VL ONE (15:01)
[2020-07-03] MEDS ORDERED: MIDAZOLAM HCL 1MG/1ML-2 ML VIAL ONE (15:04)
[2020-07-03] MEDS ORDERED: CLINDAMYCIN 600MG IV 50 ML IV ONE (15:09)
[2020-07-03] MEDS ORDERED: PHENYLEPHRINE HCL 10 MG/ML VL ONE (15:43)
[2020-07-03] MEDS: NOREPINEPHRINE 8 MG/250ML KIT 250 ML IV SCH (19:41)
[2020-07-03] MEDS: TPN PER PHARMACY IV NR ×9 (19:56)
[2020-07-03] MEDS: POTASSIUM ACETATE IV NR ×10 (20:00)
[2020-07-03] MEDS: [UNRECOGNIZED DRUG - OTHER] IV NR ×10 (20:00)
[2020-07-03] MEDS: POTASSIUM CHLORIDE IV NR ×10 (20:00)
[2020-07-03] MEDS: SODIUM CHLORIDE IV NR ×10 (20:00)
[2020-07-04] VITALS (98 sets, daily range): BP systolic 106–151; BP diastolic 39–60
[2020-07-04] MEDS: ACCU-CHEK COMFORT CURVE STRIP VI SCH ×4 (00:37→17:59)
[2020-07-04] MEDS: InsuLIN REG 1unit/0.01ml Soln (100units/ml) SC SCH ×4 (00:37→18:00)
[2020-07-04 04:04] LABS: Basophils # (auto) 0 10 ^3/uL (0-0.2); Basophils % (auto) 0.3 % (0.0-2.0); Eosinophils # (auto) 0 10 ^3/uL (0-0.8); Eosinophils % (auto) 0.2 % (0.0-7.0); Hematocrit 26.1 % (36.0-46.0); Hemoglobin 8.8 g/dL (12.2-16.2); Lymphocytes # (auto) 0.6 10 ^3/uL (0.4-5.4); Lymphocytes % (auto) 7.6 % (10.0-50.0); Mean Corpuscular Hemoglobin 27.8 pg (28.0-32.0); Mean Corpuscular Hgb Conc. 33.5 g/dL (32.0-36.0); Mean Corpuscular Volume 82.8 fL (80.0-100.0); Monocytes # (auto) 0.2 10 ^3/uL (0-1.3); Monocytes % (auto) 2.4 % (0.0-12.0); Neutrophils # (auto) 6.8 10 ^3/uL (1.6-8.6); Neutrophils % (auto) 89.5 % (37.0-80.0); Platelet Count (auto) 205 10^3/uL (140-450); Red Blood Cells 3.15 10^6/uL (4.0-5.20); Red Cell Distribution Width 18.6 % (11.8-14.3); White Blood Cell 7.6 10^3/uL (4.4-10.8)
[2020-07-04 04:44] LABS: Albumin 1.6 g/dL (3.4-5.0); Calcium 8.2 mg/dL (8.5-10.1); Magnesium 2.2 mg/dL (1.6-2.6); Potassium 4.9 mmol/L (3.5-5.1)
[2020-07-04 04:48] LABS: Bilirubin, Total 0.3 mg/dL (0.2-1.0); Phosphorus 3.1 mg/dL (2.5-4.90); Total Protein 6.2 g/dL (6.4-8.2)
[2020-07-04] MEDS: MIDAZOLAM DRIP 50 mg/50mL 50 ML IV SCH ×8 (05:25→23:38)
[2020-07-04] MEDS: PROPOFOL 100 ML IV SCH (06:56)
[2020-07-04] MEDS: DOCUSATE ORAL LIQUID 100 MG/10 ML UD GT SCH (10:00)
[2020-07-04] MEDS: ENOXAPARIN SOD 80 MG/0.8ML SYRINGE SC SCH ×2 (10:00→22:00)
[2020-07-04] MEDS: NOREPINEPHRINE 8 MG/250ML KIT 250 ML IV SCH (10:00)
[2020-07-04] MEDS: INSULIN LANTUS (GLARGINE) 1 /0.01ml (100units/ml) SC SCH (10:00)
[2020-07-04] MEDS: ZINC SULFATE 220mg CAP or TAB PO SCH (10:00)
[2020-07-04] MEDS: CHOLECALCIFEROL (VITD3) 1,000UNIT=25mCg TAB PO SCH (10:00)
[2020-07-04] MEDS: FAMOTIDINE 20 MG TAB PO SCH ×2 (10:00→22:00)
[2020-07-04] MEDS: ASCORBIC ACID 1,000 MG TAB PO SCH (10:00)
[2020-07-04] MEDS: [UNRECOGNIZED DRUG - OTHER] IV NR ×10 (19:33)
[2020-07-04] MEDS: POTASSIUM CHLORIDE IV NR ×10 (19:33)
[2020-07-04] MEDS: POTASSIUM ACETATE IV NR ×10 (19:33)
[2020-07-04] MEDS: SODIUM CHLORIDE IV NR ×10 (19:33)
[2020-07-04] MEDS ORDERED: TPN PER PHARMACY IV NR ×7 (20:00)
[2020-07-05] VITALS (96 sets, daily range): BP systolic 88–150; BP diastolic 40–73
[2020-07-05] MEDS: ACCU-CHEK COMFORT CURVE STRIP VI SCH ×4 (00:23→17:44)
[2020-07-05] MEDS: InsuLIN REG 1unit/0.01ml Soln (100units/ml) SC SCH ×4 (00:23→17:44)
[2020-07-05 04:26] LABS: Basophils # (auto) 0 10 ^3/uL (0-0.2); Basophils % (auto) 0.2 % (0.0-2.0); Eosinophils # (auto) 0.1 10 ^3/uL (0-0.8); Hematocrit 22.6 % (36.0-46.0); Hemoglobin 7.6 g/dL (12.2-16.2); Lymphocytes # (auto) 1.5 10 ^3/uL (0.4-5.4); Monocytes # (auto) 0.6 10 ^3/uL (0-1.3); Monocytes % (auto) 7.2 % (0.0-12.0); Neutrophils # (auto) 6.2 10 ^3/uL (1.6-8.6); Nucleated Red Blood Cells % 0.1 %
[2020-07-05 04:29] LABS: Eosinophils % (auto) 1.2 % (0.0-7.0); Lymphocytes % (auto) 17.9 % (10.0-50.0); Mean Corpuscular Hemoglobin 28.2 pg (28.0-32.0); Mean Corpuscular Hgb Conc. 33.9 g/dL (32.0-36.0); Mean Corpuscular Volume 83.2 fL (80.0-100.0); Neutrophils % (auto) 73.5 % (37.0-80.0); Platelet Count (auto) 197 10^3/uL (140-450); Red Blood Cells 2.71 10^6/uL (4.0-5.20); Red Cell Distribution Width 18.2 % (11.8-14.3); White Blood Cell 8.4 10^3/uL (4.4-10.8)
[2020-07-05] MEDS: MIDAZOLAM DRIP 50 mg/50mL 50 ML IV SCH ×6 (04:45→22:51)
[2020-07-05 04:46] LABS: Albumin 1.6 g/dL (3.4-5.0); Calcium 8.2 mg/dL (8.5-10.1); Potassium 3.7 mmol/L (3.5-5.1)
[2020-07-05 04:58] LABS: BUN/Creatinine Ratio 64.9; Bilirubin, Total 0.2 mg/dL (0.2-1.0); Magnesium 1.9 mg/dL (1.6-2.6); Pre Albumin 11.4 mg/dL (20.0-40.0); Total Protein 5.9 g/dL (6.4-8.2)
[2020-07-05] MEDS: PROPOFOL 100 ML IV SCH ×2 (06:39→22:53)
[2020-07-05] MEDS: ACETAMINOPHEN 500 MG TAB PO PRN ×2 (07:00→13:54)
[2020-07-05] MEDS: NOREPINEPHRINE 8 MG/250ML KIT 250 ML IV SCH ×2 (10:00→22:52)
[2020-07-05] MEDS ORDERED: POTASSIUM CHL 20MEQ/100ML 100 ML IV ONE (10:00)
[2020-07-05] MEDS: CHOLECALCIFEROL (VITD3) 1,000UNIT=25mCg TAB PO SCH (10:03)
[2020-07-05] MEDS: ZINC SULFATE 220mg CAP or TAB PO SCH (10:03)
[2020-07-05] MEDS: FAMOTIDINE 20 MG TAB PO SCH ×2 (10:03→22:00)
[2020-07-05] MEDS: DOCUSATE ORAL LIQUID 100 MG/10 ML UD GT SCH (10:03)
[2020-07-05] MEDS: ASCORBIC ACID 1,000 MG TAB PO SCH (10:03)
[2020-07-05] MEDS: INSULIN LANTUS (GLARGINE) 1 /0.01ml (100units/ml) SC SCH (10:04)
[2020-07-05] MEDS: ENOXAPARIN SOD 80 MG/0.8ML SYRINGE SC SCH ×2 (10:07→22:00)
[2020-07-05] MEDS: fentaNYL Drip 2500mCg/250mlNS 250 ML IV SCH (11:00)
[2020-07-05] MEDS ORDERED: cefTRIAXone 1GM/50ML D5W 50 ML IV SCH (16:00)
[2020-07-05] MEDS ORDERED: TPN PER PHARMACY IV NR ×9 (20:00)
[2020-07-06] VITALS (95 sets, daily range): BP systolic 76–146; BP diastolic 26–63
[2020-07-06] MEDS: MIDAZOLAM DRIP 50 mg/50mL 50 ML IV SCH ×7 (00:45→22:23)
[2020-07-06] MEDS: ACETAMINOPHEN 500 MG TAB PO PRN (02:19)
[2020-07-06 04:05] LABS: Red Cell Distribution Width 18.4 % (11.8-14.3); White Blood Cell 7.8 10^3/uL (4.4-10.8)
[2020-07-06 04:07] LABS: Hematocrit 23.8 % (36.0-46.0); Hemoglobin 8.2 g/dL (12.2-16.2); Mean Corpuscular Hemoglobin 28.3 pg (28.0-32.0); Mean Corpuscular Hgb Conc. 34.3 g/dL (32.0-36.0); Mean Corpuscular Volume 82.4 fL (80.0-100.0); Platelet Count (auto) 229 10^3/uL (140-450); Red Blood Cells 2.89 10^6/uL (4.0-5.20)
[2020-07-06 04:09] LABS: Basophils % (manual) 0 (0.0-2.0); Blast Cells 0; Metamyelocytes % 0; Promyelocytes % 0; Reactive Lymphocytes 0
[2020-07-06 04:27] LABS: Calcium 8.2 mg/dL (8.5-10.1); Potassium 3.6 mmol/L (3.5-5.1)
[2020-07-06 04:33] LABS: Albumin 1.6 g/dL (3.4-5.0); BUN/Creatinine Ratio 53.8; Bilirubin, Total 0.3 mg/dL (0.2-1.0); Phosphorus 5.7 mg/dL (2.5-4.90); Total Protein 6.2 g/dL (6.4-8.2)
[2020-07-06 04:52] LABS: Band Neutrophils % (manual) 40; Eosinophils % (manual) 6 (0-7); Lymphocytes % (manual) 27 (10.0-50.0); Monocytes % (manual) 4 (0-12); Myelocytes % 3
[2020-07-06] MEDS: InsuLIN REG 1unit/0.01ml Soln (100units/ml) SC SCH ×4 (05:25→17:57)
[2020-07-06] MEDS: ACCU-CHEK COMFORT CURVE STRIP VI SCH ×4 (05:25→17:56)
[2020-07-06] MEDS: fentaNYL Drip 2500mCg/250mlNS 250 ML IV SCH (05:27)
[2020-07-06] MEDS: PROPOFOL 100 ML IV SCH ×2 (05:28→19:57)
[2020-07-06] MEDS: ZINC SULFATE 220mg CAP or TAB PO SCH (10:14)
[2020-07-06] MEDS: CHOLECALCIFEROL (VITD3) 1,000UNIT=25mCg TAB PO SCH (10:14)
[2020-07-06] MEDS: FAMOTIDINE 20 MG TAB PO SCH ×2 (10:14→22:00)
[2020-07-06] MEDS: ASCORBIC ACID 1,000 MG TAB PO SCH (10:14)
[2020-07-06] MEDS: DOCUSATE ORAL LIQUID 100 MG/10 ML UD GT SCH (10:14)
[2020-07-06] MEDS: ENOXAPARIN SOD 80 MG/0.8ML SYRINGE SC SCH ×2 (10:15→22:00)
[2020-07-06] MEDS: INSULIN LANTUS (GLARGINE) 1 /0.01ml (100units/ml) SC SCH (10:15)
[2020-07-06] MEDS: ACETAMINOPHEN 650 mg PER 20.3 mL UD GT PRN (17:59)
[2020-07-06] MEDS ORDERED: POTASSIUM ACETATE IV NR ×10 (20:00)
[2020-07-06] MEDS ORDERED: POTASSIUM CHLORIDE IV NR ×10 (20:00)
[2020-07-06] MEDS ORDERED: SODIUM CHLORIDE IV NR ×10 (20:00)
[2020-07-06] MEDS ORDERED: [UNRECOGNIZED DRUG - OTHER] IV NR ×10 (20:00)
[2020-07-07] VITALS (100 sets, daily range): BP systolic 90–133; BP diastolic 28–56
[2020-07-07] MEDS: NOREPINEPHRINE 8 MG/250ML KIT 250 ML IV SCH (04:49)
[2020-07-07] MEDS: PROPOFOL 100 ML IV SCH (04:50)
[2020-07-07] MEDS: MIDAZOLAM DRIP 50 mg/50mL 50 ML IV SCH (04:50)
[2020-07-07] MEDS: ACETAMINOPHEN 650 mg PER 20.3 mL UD GT PRN ×2 (04:51→17:02)
[2020-07-07] MEDS: ACCU-CHEK COMFORT CURVE STRIP VI SCH ×4 (05:50→18:02)
[2020-07-07] MEDS: InsuLIN REG 1unit/0.01ml Soln (100units/ml) SC SCH ×4 (05:51→18:02)
[2020-07-07 07:26] LABS: Albumin 1.6 g/dL (3.4-5.0); Potassium 3.8 mmol/L (3.5-5.1)
[2020-07-07 07:32] LABS: BUN/Creatinine Ratio 33.3; Bilirubin, Total 0.5 mg/dL (0.2-1.0); Calcium 8.1 mg/dL (8.5-10.1); Magnesium 1.8 mg/dL (1.6-2.6); Phosphorus 2.8 mg/dL (2.5-4.90); Total Protein 5.3 g/dL (6.4-8.2)
[2020-07-07 07:36] LABS: Basophils # (auto) 0 10 ^3/uL (0-0.2); Basophils % (auto) 0.3 % (0.0-2.0); Eosinophils # (auto) 0.4 10 ^3/uL (0-0.8); Eosinophils % (auto) 6.3 % (0.0-7.0); Hematocrit 26.3 % (36.0-46.0); Hemoglobin 8.7 g/dL (12.2-16.2); Lymphocytes # (auto) 1.4 10 ^3/uL (0.4-5.4); Lymphocytes % (auto) 22.4 % (10.0-50.0); Mean Corpuscular Hemoglobin 27.1 pg (28.0-32.0); Mean Corpuscular Hgb Conc. 33.2 g/dL (32.0-36.0); Mean Corpuscular Volume 81.8 fL (80.0-100.0); Monocytes # (auto) 0.4 10 ^3/uL (0-1.3); Monocytes % (auto) 6.1 % (0.0-12.0); Neutrophils # (auto) 4.1 10 ^3/uL (1.6-8.6); Neutrophils % (auto) 64.9 % (37.0-80.0); Nucleated Red Blood Cells % 0.3 %; Platelet Count (auto) 230 10^3/uL (140-450); Red Blood Cells 3.22 10^6/uL (4.0-5.20); Red Cell Distribution Width 18.8 % (11.8-14.3); White Blood Cell 6.3 10^3/uL (4.4-10.8)
[2020-07-07] MEDS: DOCUSATE ORAL LIQUID 100 MG/10 ML UD GT SCH (09:54)
[2020-07-07] MEDS: ASCORBIC ACID 1,000 MG TAB PO SCH (09:54)
[2020-07-07] MEDS: FAMOTIDINE 20 MG TAB PO SCH ×2 (09:54→22:00)
[2020-07-07] MEDS: ZINC SULFATE 220mg CAP or TAB PO SCH (09:54)
[2020-07-07] MEDS: CHOLECALCIFEROL (VITD3) 1,000UNIT=25mCg TAB PO SCH (09:54)
[2020-07-07] MEDS: INSULIN LANTUS (GLARGINE) 1 /0.01ml (100units/ml) SC SCH (09:55)
[2020-07-07] MEDS: ENOXAPARIN SOD 80 MG/0.8ML SYRINGE SC SCH (09:57)
[2020-07-07] MEDS: fentaNYL Drip 2500mCg/250mlNS 250 ML IV SCH ×2 (11:23→18:15)
[2020-07-07] MEDS ORDERED: DEXTROSE (50%) 50ML SYRG IV PRN (11:45)
[2020-07-07] MEDS: cefTRIAXone 1GM/50ML D5W 50 ML IV SCH (11:58)
[2020-07-07] MEDS ORDERED: TPN PER PHARMACY IV NR ×11 (20:00)
[2020-07-08] VITALS (99 sets, daily range): BP systolic 92–132; BP diastolic 30–60
[2020-07-08] MEDS: InsuLIN REG 1unit/0.01ml Soln (100units/ml) SC SCH ×4 (06:00→17:56)
[2020-07-08] MEDS: ACCU-CHEK COMFORT CURVE STRIP VI SCH ×4 (06:00→17:56)
[2020-07-08 06:07] LABS: Hematocrit 25.2 % (36.0-46.0); Hemoglobin 8.5 g/dL (12.2-16.2); Mean Corpuscular Hemoglobin 27.7 pg (28.0-32.0); Mean Corpuscular Hgb Conc. 33.9 g/dL (32.0-36.0); Mean Corpuscular Volume 81.7 fL (80.0-100.0); Platelet Count (auto) 256 10^3/uL (140-450); Red Blood Cells 3.08 10^6/uL (4.0-5.20); Red Cell Distribution Width 18.5 % (11.8-14.3); White Blood Cell 6.1 10^3/uL (4.4-10.8)
[2020-07-08 06:18] LABS: Basophils % (manual) 0 (0.0-2.0); Blast Cells 0; Promyelocytes % 0; Reactive Lymphocytes 0
[2020-07-08 06:24] LABS: BUN/Creatinine Ratio 28.6; Calcium 8.8 mg/dL (8.5-10.1)
[2020-07-08 09:31] LABS: Band Neutrophils % (manual) 12; Eosinophils % (manual) 8 (0-7); Lymphocytes % (manual) 15 (10.0-50.0); Metamyelocytes % 4; Monocytes % (manual) 8 (0-12); Myelocytes % 2
[2020-07-08] MEDS: ASCORBIC ACID 1,000 MG TAB PO SCH (10:00)
[2020-07-08] MEDS: DOCUSATE ORAL LIQUID 100 MG/10 ML UD GT SCH (10:00)
[2020-07-08] MEDS: ZINC SULFATE 220mg CAP or TAB PO SCH (10:00)
[2020-07-08] MEDS: cefTRIAXone 1GM/50ML D5W 50 ML IV SCH (10:00)
[2020-07-08] MEDS: INSULIN LANTUS (GLARGINE) 1 /0.01ml (100units/ml) SC SCH (10:00)
[2020-07-08] MEDS: FAMOTIDINE 20 MG TAB PO SCH ×2 (10:00→22:00)
[2020-07-08] MEDS: CHOLECALCIFEROL (VITD3) 1,000UNIT=25mCg TAB PO SCH (10:00)
[2020-07-08] MEDS: NOREPINEPHRINE 8 MG/250ML KIT 250 ML IV SCH (10:40)
[2020-07-08] MEDS: MIDAZOLAM DRIP 50 mg/50mL 50 ML IV SCH (11:15)
[2020-07-08] MEDS: PROPOFOL 100 ML IV SCH (12:15)
[2020-07-08] MEDS: fentaNYL Drip 2500mCg/250mlNS 250 ML IV SCH (17:58)
[2020-07-09] VITALS (92 sets, daily range): BP systolic 90–143; BP diastolic 34–60
[2020-07-09] MEDS: ACETAMINOPHEN 650 mg PER 20.3 mL UD GT PRN ×2 (00:21→11:57)
[2020-07-09] MEDS: InsuLIN REG 1unit/0.01ml Soln (100units/ml) SC SCH ×5 (00:27→23:48)
[2020-07-09 04:50] LABS: Hemoglobin 7.9 g/dL (12.2-16.2)
[2020-07-09 04:53] LABS: Hematocrit 23.1 % (36.0-46.0); Mean Corpuscular Hemoglobin 27.7 pg (28.0-32.0); Mean Corpuscular Hgb Conc. 34.3 g/dL (32.0-36.0); Mean Corpuscular Volume 80.9 fL (80.0-100.0); Platelet Count (auto) 281 10^3/uL (140-450); Red Blood Cells 2.85 10^6/uL (4.0-5.20); Red Cell Distribution Width 18.5 % (11.8-14.3); White Blood Cell 5.8 10^3/uL (4.4-10.8)
[2020-07-09 04:55] LABS: Basophils % (manual) 0 (0.0-2.0); Blast Cells 0; Metamyelocytes % 0; Myelocytes % 0; Reactive Lymphocytes 0
[2020-07-09 05:09] LABS: Calcium 8.6 mg/dL (8.5-10.1); Potassium 3.7 mmol/L (3.5-5.1)
[2020-07-09 05:11] LABS: BUN/Creatinine Ratio 17.1
[2020-07-09] MEDS: ACCU-CHEK COMFORT CURVE STRIP VI SCH ×5 (06:00→23:46)
[2020-07-09 06:41] LABS: Band Neutrophils % (manual) 41; Eosinophils % (manual) 8 (0-7); Lymphocytes % (manual) 22 (10.0-50.0); Monocytes % (manual) 4 (0-12); Promyelocytes % 1
[2020-07-09] MEDS: ZINC SULFATE 220mg CAP or TAB PO SCH (10:00)
[2020-07-09] MEDS: INSULIN LANTUS (GLARGINE) 1 /0.01ml (100units/ml) SC SCH (10:00)
[2020-07-09] MEDS: NOREPINEPHRINE 8 MG/250ML KIT 250 ML IV SCH (10:00)
[2020-07-09] MEDS: cefTRIAXone 1GM/50ML D5W 50 ML IV SCH (10:00)
[2020-07-09] MEDS: DOCUSATE ORAL LIQUID 100 MG/10 ML UD GT SCH (10:00)
[2020-07-09] MEDS: CHOLECALCIFEROL (VITD3) 1,000UNIT=25mCg TAB PO SCH (10:00)
[2020-07-09] MEDS: ASCORBIC ACID 1,000 MG TAB PO SCH (10:00)
[2020-07-09] MEDS: FAMOTIDINE 20 MG TAB PO SCH ×2 (10:00→22:21)
[2020-07-09] MEDS: MIDAZOLAM DRIP 50 mg/50mL 50 ML IV SCH ×2 (11:08→21:00)
[2020-07-09] MEDS: PROPOFOL 100 ML IV SCH ×2 (12:23→20:00)
[2020-07-09 13:38] LABS: INR 1.07 (0.9-1.15); Partial Thromboplastin Time 28.8 sec (23.0-31.2)
[2020-07-09] MEDS: fentaNYL Drip 2500mCg/250mlNS 250 ML IV SCH ×2 (18:15→20:10)
[2020-07-10] VITALS (95 sets, daily range): BP systolic 88–144; BP diastolic 38–66
[2020-07-10] MEDS: ACETAMINOPHEN 650 mg PER 20.3 mL UD GT PRN ×2 (00:38→13:18)
[2020-07-10] MEDS: MIDAZOLAM DRIP 50 mg/50mL 50 ML IV SCH ×5 (01:00→19:20)
[2020-07-10] MEDS: PROPOFOL 100 ML IV SCH ×3 (02:00→19:20)
[2020-07-10] MEDS: NOREPINEPHRINE 8 MG/250ML KIT 250 ML IV SCH (04:20)
[2020-07-10 05:52] LABS: Hemoglobin 7.8 g/dL (12.2-16.2); Mean Corpuscular Hemoglobin 27.6 pg (28.0-32.0); Mean Corpuscular Volume 80.1 fL (80.0-100.0); White Blood Cell 7.4 10^3/uL (4.4-10.8)
[2020-07-10 05:54] LABS: Hematocrit 22.6 % (36.0-46.0); Mean Corpuscular Hgb Conc. 34.5 g/dL (32.0-36.0); Platelet Count (auto) 315 10^3/uL (140-450); Red Blood Cells 2.82 10^6/uL (4.0-5.20); Red Cell Distribution Width 18.5 % (11.8-14.3)
[2020-07-10] MEDS: ACCU-CHEK COMFORT CURVE STRIP VI SCH ×3 (06:04→18:10)
[2020-07-10 06:05] LABS: BUN/Creatinine Ratio 16.7; Calcium 8.9 mg/dL (8.5-10.1); Potassium 3.4 mmol/L (3.5-5.1)
[2020-07-10] MEDS: InsuLIN REG 1unit/0.01ml Soln (100units/ml) SC SCH ×3 (06:08→17:59)
[2020-07-10 06:24] LABS: Basophils % (manual) 0 (0.0-2.0); Blast Cells 0; Promyelocytes % 0; Reactive Lymphocytes 0
[2020-07-10 08:04] LABS: Band Neutrophils % (manual) 4; Eosinophils % (manual) 9 (0-7); Lymphocytes % (manual) 21 (10.0-50.0); Metamyelocytes % 2; Monocytes % (manual) 9 (0-12); Myelocytes % 2
[2020-07-10] MEDS: DOCUSATE ORAL LIQUID 100 MG/10 ML UD GT SCH (09:27)
[2020-07-10] MEDS: SODIUM CHLOR 0.9% PF (SALINE LOCK) 10ML VIAL/SYR IV SCH ×2 (09:28→21:55)
[2020-07-10] MEDS: ASCORBIC ACID 1,000 MG TAB PO SCH (09:28)
[2020-07-10] MEDS: cefTRIAXone 1GM/50ML D5W 50 ML IV SCH (09:28)
[2020-07-10] MEDS: ZINC SULFATE 220mg CAP or TAB PO SCH (09:28)
[2020-07-10] MEDS: FAMOTIDINE 20 MG TAB PO SCH ×2 (09:28→21:56)
[2020-07-10] MEDS: CHOLECALCIFEROL (VITD3) 1,000UNIT=25mCg TAB PO SCH (09:29)
[2020-07-10] MEDS: INSULIN LANTUS (GLARGINE) 1 /0.01ml (100units/ml) SC SCH (10:00)
[2020-07-10] MEDS ORDERED: ENOXAPARIN SOD 80 MG/0.8ML SYRINGE SC ONE (13:15)
[2020-07-10] MEDS: POTASSIUM CHL 20MEQ/100ML 100 ML IV SCH ×2 (13:22→15:15)
[2020-07-10] MEDS: fentaNYL Drip 2500mCg/250mlNS 250 ML IV SCH (13:26)
[2020-07-10] MEDS: ENOXAPARIN SOD 80 MG/0.8ML SYRINGE SC SCH (21:56)
[2020-07-11] VITALS (103 sets, daily range): BP systolic 87–143; BP diastolic 45–67
[2020-07-11] MEDS: ACETAMINOPHEN 650 mg PER 20.3 mL UD GT PRN ×4 (00:40→23:44)
[2020-07-11] MEDS: MIDAZOLAM DRIP 50 mg/50mL 50 ML IV SCH (00:55)
[2020-07-11 04:31] LABS: Red Cell Distribution Width 18.5 % (11.8-14.3)
[2020-07-11 04:34] LABS: Hematocrit 22.5 % (36.0-46.0); Hemoglobin 7.6 g/dL (12.2-16.2); Mean Corpuscular Hemoglobin 27.3 pg (28.0-32.0); Mean Corpuscular Hgb Conc. 33.6 g/dL (32.0-36.0); Mean Corpuscular Volume 81.1 fL (80.0-100.0); Platelet Count (auto) 330 10^3/uL (140-450); Red Blood Cells 2.77 10^6/uL (4.0-5.20); White Blood Cell 7.8 10^3/uL (4.4-10.8)
[2020-07-11 04:40] LABS: Basophils % (manual) 0 (0.0-2.0); Blast Cells 0; Promyelocytes % 0; Reactive Lymphocytes 0
[2020-07-11 04:48] LABS: BUN/Creatinine Ratio 17.4; Calcium 8.8 mg/dL (8.5-10.1); Potassium 3.5 mmol/L (3.5-5.1)
[2020-07-11] MEDS: fentaNYL Drip 2500mCg/250mlNS 250 ML IV SCH ×2 (04:57→20:00)
[2020-07-11] MEDS: ACCU-CHEK COMFORT CURVE STRIP VI SCH ×5 (06:17→23:45)
[2020-07-11] MEDS: InsuLIN REG 1unit/0.01ml Soln (100units/ml) SC SCH ×5 (06:18→23:48)
[2020-07-11] MEDS: PROPOFOL 100 ML IV SCH ×5 (09:00→20:00)
[2020-07-11] MEDS: cefTRIAXone 1GM/50ML D5W 50 ML IV SCH (10:18)
[2020-07-11] MEDS: SODIUM CHLOR 0.9% PF (SALINE LOCK) 10ML VIAL/SYR IV SCH ×2 (10:18→22:00)
[2020-07-11] MEDS: DOCUSATE ORAL LIQUID 100 MG/10 ML UD GT SCH (10:18)
[2020-07-11] MEDS: FAMOTIDINE 20 MG TAB PO SCH (10:19)
[2020-07-11] MEDS: ZINC SULFATE 220mg CAP or TAB PO SCH (10:19)
[2020-07-11] MEDS: ASCORBIC ACID 1,000 MG TAB PO SCH (10:19)
[2020-07-11] MEDS: CHOLECALCIFEROL (VITD3) 1,000UNIT=25mCg TAB PO SCH (10:19)
[2020-07-11] MEDS: ENOXAPARIN SOD 80 MG/0.8ML SYRINGE SC SCH ×2 (10:20→22:00)
[2020-07-11] MEDS: INSULIN LANTUS (GLARGINE) 1 /0.01ml (100units/ml) SC SCH (10:20)
[2020-07-11] MEDS: NOREPINEPHRINE 8 MG/250ML KIT 250 ML IV SCH (10:21)
[2020-07-11] MEDS ORDERED: PANTOPRAZOLE 40 MG/10 ML VIAL INJ IV ONE (11:30)
[2020-07-11] MEDS: MAGNESIUM SULFATE 1GM/100ML 100 ML IV SCH ×2 (11:30→12:30)
[2020-07-11 13:35] LABS: Magnesium 1.4 mg/dL (1.6-2.6)
[2020-07-11] MEDS: POTASSIUM CHL 20MEQ/100ML 100 ML IV SCH ×2 (14:00→16:00)
[2020-07-11 14:03] LABS: Band Neutrophils % (manual) 13; Eosinophils % (manual) 3 (0-7); Lymphocytes % (manual) 28 (10.0-50.0); Metamyelocytes % 1; Monocytes % (manual) 3 (0-12); Myelocytes % 2
[2020-07-11 14:33] LABS: CRP High Sensitivity 17.5 mg/dL (< 0.3)
[2020-07-11 16:51] LABS: Urine Bacteria FEW /hpf (None Seen); Urine Blood Negative /uL (Negative); Urine Mucus FEW (None Seen); Urine Specific Gravity 1.008 (1.001-1.035); Urine WBC 2 /hpf (0 - 5)
[2020-07-11] MEDS: PANTOPRAZOLE 40 MG/10 ML VIAL INJ IV SCH (22:00)
[2020-07-12] VITALS (104 sets, daily range): BP systolic 88–161; BP diastolic 43–76
[2020-07-12] MEDS: InsuLIN REG 1unit/0.01ml Soln (100units/ml) SC SCH ×3 (06:00→17:48)
[2020-07-12] MEDS: ACCU-CHEK COMFORT CURVE STRIP VI SCH ×3 (06:00→17:50)
[2020-07-12] MEDS: PROPOFOL 100 ML IV SCH ×4 (07:16→19:50)
[2020-07-12] MEDS: NOREPINEPHRINE 8 MG/250ML KIT 250 ML IV SCH (09:28)
[2020-07-12] MEDS: INSULIN LANTUS (GLARGINE) 1 /0.01ml (100units/ml) SC SCH (10:00)
[2020-07-12] MEDS: cefTRIAXone 1GM/50ML D5W 50 ML IV SCH (11:01)
[2020-07-12] MEDS: PANTOPRAZOLE 40 MG/10 ML VIAL INJ IV SCH ×2 (11:01→21:54)
[2020-07-12] MEDS: DOCUSATE ORAL LIQUID 100 MG/10 ML UD GT SCH (11:01)
[2020-07-12] MEDS: ENOXAPARIN SOD 80 MG/0.8ML SYRINGE SC SCH ×2 (11:02→21:55)
[2020-07-12] MEDS: CHOLECALCIFEROL (VITD3) 1,000UNIT=25mCg TAB PO SCH (11:02)
[2020-07-12] MEDS: SODIUM CHLOR 0.9% PF (SALINE LOCK) 10ML VIAL/SYR IV SCH ×2 (11:02→21:54)
[2020-07-12] MEDS: ASCORBIC ACID 1,000 MG TAB PO SCH (11:02)
[2020-07-12] MEDS: MAGNESIUM OXIDE 400 MG TAB PO SCH ×2 (11:02→21:55)
[2020-07-12] MEDS: ZINC SULFATE 220mg CAP or TAB PO SCH (11:02)
[2020-07-12] MEDS: MIDAZOLAM DRIP 50 mg/50mL 50 ML IV SCH (11:03)
[2020-07-12] MEDS: ACETAMINOPHEN 650 mg PER 20.3 mL UD GT PRN ×2 (13:45→21:56)
[2020-07-13] VITALS (99 sets, daily range): BP systolic 69–156; BP diastolic 25–69
[2020-07-13] MEDS: ACCU-CHEK COMFORT CURVE STRIP VI SCH ×4 (00:34→18:01)
[2020-07-13] MEDS: InsuLIN REG 1unit/0.01ml Soln (100units/ml) SC SCH ×4 (00:37→18:00)
[2020-07-13] MEDS: fentaNYL Drip 2500mCg/250mlNS 250 ML IV SCH ×2 (00:42→14:17)
[2020-07-13] MEDS: PROPOFOL 100 ML IV SCH ×5 (01:00→22:03)
[2020-07-13] MEDS: MIDAZOLAM DRIP 50 mg/50mL 50 ML IV SCH ×5 (03:00→22:04)
[2020-07-13 06:01] LABS: Basophils # (auto) 0 10 ^3/uL (0-0.2); Basophils % (auto) 0.2 % (0.0-2.0); Eosinophils # (auto) 0.1 10 ^3/uL (0-0.8); Eosinophils % (auto) 1.4 % (0.0-7.0); Hematocrit 23.2 % (36.0-46.0); Hemoglobin 7.8 g/dL (12.2-16.2); Lymphocytes # (auto) 0.9 10 ^3/uL (0.4-5.4); Lymphocytes % (auto) 9.2 % (10.0-50.0); Mean Corpuscular Hemoglobin 27.1 pg (28.0-32.0); Mean Corpuscular Hgb Conc. 33.5 g/dL (32.0-36.0); Mean Corpuscular Volume 80.9 fL (80.0-100.0); Monocytes # (auto) 0.6 10 ^3/uL (0-1.3); Neutrophils # (auto) 8.6 10 ^3/uL (1.6-8.6); Neutrophils % (auto) 83.2 % (37.0-80.0); Nucleated Red Blood Cells % 0.1 %; Platelet Count (auto) 314 10^3/uL (140-450); Red Blood Cells 2.86 10^6/uL (4.0-5.20); Red Cell Distribution Width 18.7 % (11.8-14.3); White Blood Cell 10.3 10^3/uL (4.4-10.8)
[2020-07-13 06:04] LABS: Potassium 3.3 mmol/L (3.5-5.1)
[2020-07-13 06:13] LABS: Albumin 1.5 g/dL (3.4-5.0); Bilirubin, Total 0.4 mg/dL (0.2-1.0); Calcium 8.1 mg/dL (8.5-10.1); Total Protein 6.3 g/dL (6.4-8.2)
[2020-07-13] MEDS: cefTRIAXone 1GM/50ML D5W 50 ML IV SCH (08:41)
[2020-07-13] MEDS: DOCUSATE ORAL LIQUID 100 MG/10 ML UD GT SCH (08:41)
[2020-07-13] MEDS: MAGNESIUM OXIDE 400 MG TAB PO SCH ×2 (08:41→22:00)
[2020-07-13] MEDS: PANTOPRAZOLE 40 MG/10 ML VIAL INJ IV SCH ×2 (08:42→22:00)
[2020-07-13] MEDS: ASCORBIC ACID 1,000 MG TAB PO SCH (08:42)
[2020-07-13] MEDS: ENOXAPARIN SOD 80 MG/0.8ML SYRINGE SC SCH ×2 (08:42→22:02)
[2020-07-13] MEDS: ZINC SULFATE 220mg CAP or TAB PO SCH (08:42)
[2020-07-13] MEDS: CHOLECALCIFEROL (VITD3) 1,000UNIT=25mCg TAB PO SCH (08:42)
[2020-07-13] MEDS: INSULIN LANTUS (GLARGINE) 1 /0.01ml (100units/ml) SC SCH (08:42)
[2020-07-13] MEDS: SODIUM CHLOR 0.9% PF (SALINE LOCK) 10ML VIAL/SYR IV SCH ×2 (08:44→22:00)
[2020-07-13] MEDS: Glucerna 1.2 Cal 1Liter BOTTLE GT SCH (08:44)
[2020-07-13] MEDS: NOREPINEPHRINE 8 MG/250ML KIT 250 ML IV SCH (08:52)
[2020-07-13] MEDS ORDERED: IOHEXOL 350 MG/ML 100ML IJ ONE ×2 (13:10→15:02)
[2020-07-13] MEDS ORDERED: POTASSIUM CHL 20MEQ/100ML 100 ML IV ONE (13:15)
[2020-07-13] MEDS: POTASSIUM CHL 20MEQ/100ML 100 ML IV SCH ×2 (13:38→20:00)
[2020-07-13] MEDS: CEFEPIME 1 GM in SODIUM CHL 0.9% 50 ML IV SCH ×2 (15:18→21:59)
[2020-07-13] MEDS: ACETAMINOPHEN 650 mg PER 20.3 mL UD GT PRN (18:49)
[2020-07-14] VITALS (99 sets, daily range): BP systolic 83–142; BP diastolic 21–69
[2020-07-14] MEDS: ACCU-CHEK COMFORT CURVE STRIP VI SCH ×4 (00:02→17:59)
[2020-07-14] MEDS: InsuLIN REG 1unit/0.01ml Soln (100units/ml) SC SCH ×4 (00:03→18:00)
[2020-07-14] MEDS: fentaNYL Drip 2500mCg/250mlNS 250 ML IV SCH ×2 (02:32→15:26)
[2020-07-14] MEDS: MIDAZOLAM DRIP 50 mg/50mL 50 ML IV SCH ×4 (02:35→22:20)
[2020-07-14] MEDS: PROPOFOL 100 ML IV SCH ×4 (02:35→20:11)
[2020-07-14] MEDS: NOREPINEPHRINE 8 MG/250ML KIT 250 ML IV SCH (04:15)
[2020-07-14] MEDS: CEFEPIME 1 GM in SODIUM CHL 0.9% 50 ML IV SCH ×3 (06:00→21:39)
[2020-07-14 06:10] LABS: Basophils # (auto) 0 10 ^3/uL (0-0.2); Basophils % (auto) 0.3 % (0.0-2.0); Eosinophils # (auto) 0.2 10 ^3/uL (0-0.8); Eosinophils % (auto) 1.5 % (0.0-7.0); Hematocrit 22.1 % (36.0-46.0); Hemoglobin 7.4 g/dL (12.2-16.2); Lymphocytes # (auto) 1.1 10 ^3/uL (0.4-5.4); Lymphocytes % (auto) 8.3 % (10.0-50.0); Mean Corpuscular Hemoglobin 27.1 pg (28.0-32.0); Mean Corpuscular Hgb Conc. 33.3 g/dL (32.0-36.0); Mean Corpuscular Volume 81.3 fL (80.0-100.0); Monocytes # (auto) 0.5 10 ^3/uL (0-1.3); Monocytes % (auto) 4.3 % (0.0-12.0); Neutrophils # (auto) 10.8 10 ^3/uL (1.6-8.6); Neutrophils % (auto) 85.6 % (37.0-80.0); Nucleated Red Blood Cells % 0.1 %; Platelet Count (auto) 301 10^3/uL (140-450); Red Blood Cells 2.72 10^6/uL (4.0-5.20); Red Cell Distribution Width 18.6 % (11.8-14.3); White Blood Cell 12.6 10^3/uL (4.4-10.8)
[2020-07-14 06:45] LABS: Potassium 3.3 mmol/L (3.5-5.1)
[2020-07-14 06:50] LABS: Calcium 7.8 mg/dL (8.5-10.1)
[2020-07-14] MEDS: ENOXAPARIN SOD 80 MG/0.8ML SYRINGE SC SCH ×2 (08:28→21:40)
[2020-07-14] MEDS: PANTOPRAZOLE 40 MG/10 ML VIAL INJ IV SCH ×2 (08:28→21:39)
[2020-07-14] MEDS: ZINC SULFATE 220mg CAP or TAB PO SCH (08:29)
[2020-07-14] MEDS: SODIUM CHLOR 0.9% PF (SALINE LOCK) 10ML VIAL/SYR IV SCH ×2 (08:29→21:39)
[2020-07-14] MEDS: DOCUSATE ORAL LIQUID 100 MG/10 ML UD GT SCH (08:29)
[2020-07-14] MEDS: MAGNESIUM OXIDE 400 MG TAB PO SCH ×2 (08:29→21:39)
[2020-07-14] MEDS: CHOLECALCIFEROL (VITD3) 1,000UNIT=25mCg TAB PO SCH (08:29)
[2020-07-14] MEDS: INSULIN LANTUS (GLARGINE) 1 /0.01ml (100units/ml) SC SCH (08:29)
[2020-07-14] MEDS: ASCORBIC ACID 1,000 MG TAB PO SCH (08:29)
[2020-07-14] MEDS: POTASSIUM CHL 20MEQ/100ML 100 ML IV SCH ×2 (11:46→13:30)
[2020-07-14] MEDS ORDERED: VANCOMYCIN PER PHARMACY 0 MG IV SCH (12:45)
[2020-07-14] MEDS ORDERED: GASTROGRAFIN 30 ML SOL ONE (13:15)
[2020-07-14] MEDS ORDERED: VANCOMYCIN 1GM/250ML 250 ML IV ONE (14:00)
[2020-07-14] MEDS: Glucerna 1.2 Cal 1Liter BOTTLE GT SCH (18:07)
[2020-07-15] VITALS (109 sets, daily range): BP systolic 90–140; BP diastolic 40–81
[2020-07-15] MEDS: ACCU-CHEK COMFORT CURVE STRIP VI SCH ×4 (01:10→17:44)
[2020-07-15] MEDS: InsuLIN REG 1unit/0.01ml Soln (100units/ml) SC SCH ×4 (01:10→17:45)
[2020-07-15] MEDS: MIDAZOLAM DRIP 50 mg/50mL 50 ML IV SCH ×6 (02:00→22:30)
[2020-07-15] MEDS: fentaNYL Drip 2500mCg/250mlNS 250 ML IV SCH ×2 (04:10→16:30)
[2020-07-15 04:13] LABS: Basophils # (auto) 0 10 ^3/uL (0-0.2); Basophils % (auto) 0.2 % (0.0-2.0); Eosinophils # (auto) 0.2 10 ^3/uL (0-0.8); Hematocrit 20.8 % (36.0-46.0); Lymphocytes # (auto) 0.9 10 ^3/uL (0.4-5.4); Lymphocytes % (auto) 6.1 % (10.0-50.0); Monocytes # (auto) 0.6 10 ^3/uL (0-1.3)
[2020-07-15 04:20] LABS: Eosinophils % (auto) 1.5 % (0.0-7.0); Mean Corpuscular Hgb Conc. 33.3 g/dL (32.0-36.0); Mean Corpuscular Volume 81.2 fL (80.0-100.0); Monocytes % (auto) 4.2 % (0.0-12.0); Neutrophils # (auto) 12.4 10 ^3/uL (1.6-8.6); Nucleated Red Blood Cells % 0.1 %; Platelet Count (auto) 254 10^3/uL (140-450); Red Blood Cells 2.56 10^6/uL (4.0-5.20); Red Cell Distribution Width 19.1 % (11.8-14.3); White Blood Cell 14.1 10^3/uL (4.4-10.8)
[2020-07-15 04:30] LABS: BUN/Creatinine Ratio 29.6; Calcium 7.8 mg/dL (8.5-10.1); Potassium 3.6 mmol/L (3.5-5.1)
[2020-07-15] MEDS: PROPOFOL 100 ML IV SCH ×5 (04:30→18:19)
[2020-07-15 04:50] LABS: INR 1.08 (0.9-1.15)
[2020-07-15 04:58] LABS: Hemoglobin 6.9 g/dL (12.2-16.2)
[2020-07-15] MEDS: CEFEPIME 1 GM in SODIUM CHL 0.9% 50 ML IV SCH ×3 (06:36→22:00)
[2020-07-15 09:12] LABS: Hematocrit 20.5 % (36.0-46.0)
[2020-07-15 09:15] LABS: Hemoglobin 6.8 g/dL (12.2-16.2)
[2020-07-15] MEDS: INSULIN LANTUS (GLARGINE) 1 /0.01ml (100units/ml) SC SCH (09:37)
[2020-07-15] MEDS: NOREPINEPHRINE 8 MG/250ML KIT 250 ML IV SCH (10:00)
[2020-07-15] MEDS: DOCUSATE ORAL LIQUID 100 MG/10 ML UD GT SCH (10:21)
[2020-07-15] MEDS: SODIUM CHLOR 0.9% PF (SALINE LOCK) 10ML VIAL/SYR IV SCH ×2 (10:22→22:00)
[2020-07-15] MEDS: MAGNESIUM OXIDE 400 MG TAB PO SCH ×2 (10:22→22:00)
[2020-07-15] MEDS: ZINC SULFATE 220mg CAP or TAB PO SCH (10:22)
[2020-07-15] MEDS: ASCORBIC ACID 1,000 MG TAB PO SCH (10:22)
[2020-07-15] MEDS: CHOLECALCIFEROL (VITD3) 1,000UNIT=25mCg TAB PO SCH (10:22)
[2020-07-15] MEDS: PANTOPRAZOLE 40 MG/10 ML VIAL INJ IV SCH ×2 (10:22→22:00)
[2020-07-15] MEDS: ENOXAPARIN SOD 80 MG/0.8ML SYRINGE SC SCH ×2 (10:22→22:00)
[2020-07-15] MEDS: VANCOMYCIN 1GM/250ML 250 ML IV SCH (17:30)
[2020-07-15] MEDS: Glucerna 1.2 Cal 1Liter BOTTLE GT SCH (19:00)
[2020-07-16] VITALS (104 sets, daily range): BP systolic 86–175; BP diastolic 26–57
[2020-07-16] MEDS: MIDAZOLAM DRIP 50 mg/50mL 50 ML IV SCH ×5 (01:35→21:57)
[2020-07-16] MEDS: NOREPINEPHRINE 8 MG/250ML KIT 250 ML IV SCH ×2 (03:00→16:15)
[2020-07-16] MEDS: fentaNYL Drip 2500mCg/250mlNS 250 ML IV SCH ×2 (03:00→14:49)
[2020-07-16 03:39] LABS: Basophils # (auto) 0 10 ^3/uL (0-0.2); Basophils % (auto) 0.2 % (0.0-2.0); Eosinophils # (auto) 0.1 10 ^3/uL (0-0.8); Eosinophils % (auto) 1.1 % (0.0-7.0); Hematocrit 26.7 % (36.0-46.0); Hemoglobin 8.9 g/dL (12.2-16.2); Lymphocytes # (auto) 1.1 10 ^3/uL (0.4-5.4); Lymphocytes % (auto) 9.1 % (10.0-50.0); Mean Corpuscular Hemoglobin 27.3 pg (28.0-32.0); Mean Corpuscular Hgb Conc. 33.4 g/dL (32.0-36.0); Mean Corpuscular Volume 81.6 fL (80.0-100.0); Monocytes # (auto) 0.5 10 ^3/uL (0-1.3); Monocytes % (auto) 4.6 % (0.0-12.0); Nucleated Red Blood Cells % 0.2 %; Platelet Count (auto) 254 10^3/uL (140-450); Red Blood Cells 3.27 10^6/uL (4.0-5.20); Red Cell Distribution Width 18.5 % (11.8-14.3); White Blood Cell 11.8 10^3/uL (4.4-10.8)
[2020-07-16 03:59] LABS: BUN/Creatinine Ratio 15.9; Calcium 8.8 mg/dL (8.5-10.1); Potassium 3.1 mmol/L (3.5-5.1)
[2020-07-16] MEDS: VANCOMYCIN 1GM/250ML 250 ML IV SCH ×2 (04:26→16:30)
[2020-07-16] MEDS: PROPOFOL 100 ML IV SCH ×6 (04:30→21:57)
[2020-07-16] MEDS ORDERED: POTASSIUM CHL 20MEQ/100ML 100 ML IV ONE (05:15)
[2020-07-16] MEDS: CEFEPIME 1 GM in SODIUM CHL 0.9% 50 ML IV SCH ×3 (06:20→21:55)
[2020-07-16] MEDS: ACCU-CHEK COMFORT CURVE STRIP VI SCH ×5 (06:20→23:49)
[2020-07-16] MEDS: InsuLIN REG 1unit/0.01ml Soln (100units/ml) SC SCH ×5 (06:22→23:52)
[2020-07-16] MEDS: ASCORBIC ACID 1,000 MG TAB PO SCH (09:31)
[2020-07-16] MEDS: DOCUSATE ORAL LIQUID 100 MG/10 ML UD GT SCH (09:31)
[2020-07-16] MEDS: PANTOPRAZOLE 40 MG/10 ML VIAL INJ IV SCH ×2 (09:31→21:56)
[2020-07-16] MEDS: SODIUM CHLOR 0.9% PF (SALINE LOCK) 10ML VIAL/SYR IV SCH ×2 (09:31→21:55)
[2020-07-16] MEDS: ENOXAPARIN SOD 80 MG/0.8ML SYRINGE SC SCH ×2 (09:31→21:55)
[2020-07-16] MEDS: MAGNESIUM OXIDE 400 MG TAB PO SCH ×2 (09:31→21:55)
[2020-07-16] MEDS: CHOLECALCIFEROL (VITD3) 1,000UNIT=25mCg TAB PO SCH (09:32)
[2020-07-16] MEDS: ZINC SULFATE 220mg CAP or TAB PO SCH (09:32)
[2020-07-16] MEDS: INSULIN LANTUS (GLARGINE) 1 /0.01ml (100units/ml) SC SCH (09:33)
[2020-07-16] MEDS: POTASSIUM CHL 20MEQ/100ML 100 ML IV SCH ×2 (11:40→13:17)
[2020-07-17] VITALS (103 sets, daily range): BP systolic 84–159; BP diastolic 22–72
[2020-07-17] MEDS: MIDAZOLAM DRIP 50 mg/50mL 50 ML IV SCH ×4 (02:00→21:30)
[2020-07-17] MEDS: PROPOFOL 100 ML IV SCH ×6 (02:00→20:00)
[2020-07-17 04:12] LABS: Basophils # (auto) 0 10 ^3/uL (0-0.2); Basophils % (auto) 0.3 % (0.0-2.0); Eosinophils # (auto) 0.2 10 ^3/uL (0-0.8); Eosinophils % (auto) 1.9 % (0.0-7.0); Hematocrit 26.8 % (36.0-46.0); Hemoglobin 8.9 g/dL (12.2-16.2); Lymphocytes # (auto) 1.3 10 ^3/uL (0.4-5.4); Mean Corpuscular Hemoglobin 27.2 pg (28.0-32.0); Mean Corpuscular Volume 82.4 fL (80.0-100.0); Monocytes # (auto) 0.6 10 ^3/uL (0-1.3); Monocytes % (auto) 6.2 % (0.0-12.0); Neutrophils # (auto) 7.2 10 ^3/uL (1.6-8.6); Neutrophils % (auto) 77.6 % (37.0-80.0); Nucleated Red Blood Cells % 0.1 %; Platelet Count (auto) 241 10^3/uL (140-450); Red Blood Cells 3.26 10^6/uL (4.0-5.20); Red Cell Distribution Width 18.3 % (11.8-14.3); White Blood Cell 9.3 10^3/uL (4.4-10.8)
[2020-07-17 04:31] LABS: Calcium 8.1 mg/dL (8.5-10.1); Potassium 3.6 mmol/L (3.5-5.1)
[2020-07-17 04:33] LABS: BUN/Creatinine Ratio 24.3
[2020-07-17] MEDS: VANCOMYCIN 1GM/250ML 250 ML IV SCH (05:19)
[2020-07-17] MEDS: CEFEPIME 1 GM in SODIUM CHL 0.9% 50 ML IV SCH ×3 (06:13→22:08)
[2020-07-17] MEDS: ACCU-CHEK COMFORT CURVE STRIP VI SCH ×3 (06:13→18:00)
[2020-07-17] MEDS: InsuLIN REG 1unit/0.01ml Soln (100units/ml) SC SCH ×3 (06:15→17:59)
[2020-07-17] MEDS: INSULIN LANTUS (GLARGINE) 1 /0.01ml (100units/ml) SC SCH (09:35)
[2020-07-17] MEDS: SODIUM CHLOR 0.9% PF (SALINE LOCK) 10ML VIAL/SYR IV SCH ×2 (09:36→22:09)
[2020-07-17] MEDS: PANTOPRAZOLE 40 MG/10 ML VIAL INJ IV SCH ×2 (09:36→22:09)
[2020-07-17] MEDS: MAGNESIUM OXIDE 400 MG TAB PO SCH ×2 (09:36→22:09)
[2020-07-17] MEDS: ENOXAPARIN SOD 80 MG/0.8ML SYRINGE SC SCH ×2 (09:36)
[2020-07-17] MEDS: ASCORBIC ACID 1,000 MG TAB PO SCH (09:36)
[2020-07-17] MEDS: ZINC SULFATE 220mg CAP or TAB PO SCH (09:36)
[2020-07-17] MEDS: DOCUSATE ORAL LIQUID 100 MG/10 ML UD GT SCH (09:36)
[2020-07-17] MEDS: CHOLECALCIFEROL (VITD3) 1,000UNIT=25mCg TAB PO SCH (09:38)
[2020-07-17] MEDS ORDERED: APIX5TAB PO (10:37)
[2020-07-17] MEDS: fentaNYL Drip 2500mCg/250mlNS 250 ML IV SCH (11:53)
[2020-07-17] MEDS: Glucerna 1.2 Cal 1Liter BOTTLE GT SCH (12:12)
[2020-07-17] MEDS: NOREPINEPHRINE 8 MG/250ML KIT 250 ML IV SCH (14:45)
[2020-07-18] VITALS (105 sets, daily range): BP systolic 87–139; BP diastolic 26–74
[2020-07-18] MEDS: ACCU-CHEK COMFORT CURVE STRIP VI SCH ×4 (00:16→18:07)
[2020-07-18] MEDS: InsuLIN REG 1unit/0.01ml Soln (100units/ml) SC SCH ×4 (00:16→18:07)
[2020-07-18] MEDS: PROPOFOL 100 ML IV SCH ×5 (01:00→16:29)
[2020-07-18] MEDS: MIDAZOLAM DRIP 50 mg/50mL 50 ML IV SCH ×3 (02:00→16:28)
[2020-07-18 05:37] LABS: Hemoglobin 8.5 g/dL (12.2-16.2)
[2020-07-18 05:39] LABS: Hematocrit 24.8 % (36.0-46.0); Mean Corpuscular Hgb Conc. 34.2 g/dL (32.0-36.0); Mean Corpuscular Volume 81.7 fL (80.0-100.0); Platelet Count (auto) 222 10^3/uL (140-450); Red Blood Cells 3.03 10^6/uL (4.0-5.20); Red Cell Distribution Width 18.3 % (11.8-14.3); White Blood Cell 8.3 10^3/uL (4.4-10.8)
[2020-07-18 05:54] LABS: BUN/Creatinine Ratio 29.6; Calcium 8.2 mg/dL (8.5-10.1); Potassium 3.2 mmol/L (3.5-5.1)
[2020-07-18] MEDS: CEFEPIME 1 GM in SODIUM CHL 0.9% 50 ML IV SCH ×3 (06:21→22:00)
[2020-07-18 08:33] LABS: Basophils % (manual) 0 (0.0-2.0); Blast Cells 0; Myelocytes % 0; Promyelocytes % 0; Reactive Lymphocytes 0
[2020-07-18 08:35] LABS: Band Neutrophils % (manual) 8; Eosinophils % (manual) 4 (0-7); Lymphocytes % (manual) 12 (10.0-50.0); Metamyelocytes % 2; Monocytes % (manual) 2 (0-12)
[2020-07-18] MEDS: POTASSIUM CHL 20MEQ/100ML 100 ML IV SCH ×2 (09:26→11:13)
[2020-07-18] MEDS: DOCUSATE ORAL LIQUID 100 MG/10 ML UD GT SCH (09:31)
[2020-07-18] MEDS: ZINC SULFATE 220mg CAP or TAB PO SCH (09:31)
[2020-07-18] MEDS: ACETAMINOPHEN 650 mg PER 20.3 mL UD GT PRN ×2 (09:31→22:50)
[2020-07-18] MEDS: SODIUM CHLOR 0.9% PF (SALINE LOCK) 10ML VIAL/SYR IV SCH ×2 (09:32→22:00)
[2020-07-18] MEDS: CHOLECALCIFEROL (VITD3) 1,000UNIT=25mCg TAB PO SCH (09:32)
[2020-07-18] MEDS: ASCORBIC ACID 1,000 MG TAB PO SCH (09:32)
[2020-07-18] MEDS: PANTOPRAZOLE 40 MG/10 ML VIAL INJ IV SCH ×2 (09:32→22:00)
[2020-07-18] MEDS: ENOXAPARIN SOD 80 MG/0.8ML SYRINGE SC SCH ×2 (09:32→22:00)
[2020-07-18] MEDS: MAGNESIUM OXIDE 400 MG TAB PO SCH (09:32)
[2020-07-18] MEDS: INSULIN LANTUS (GLARGINE) 1 /0.01ml (100units/ml) SC SCH (09:33)
[2020-07-18] MEDS: LORazepam 2MG/ML-1ML VIAL IV PRN (15:10)
[2020-07-18] MEDS: NOREPINEPHRINE 8 MG/250ML KIT 250 ML IV SCH (17:15)
[2020-07-18] MEDS: fentaNYL Drip 2500mCg/250mlNS 250 ML IV SCH (18:08)
[2020-07-19] VITALS (107 sets, daily range): BP systolic 82–147; BP diastolic 35–75
[2020-07-19] MEDS: InsuLIN REG 1unit/0.01ml Soln (100units/ml) SC SCH ×4 (05:40→17:53)
[2020-07-19] MEDS: CEFEPIME 1 GM in SODIUM CHL 0.9% 50 ML IV SCH ×3 (05:40→22:15)
[2020-07-19] MEDS: ACCU-CHEK COMFORT CURVE STRIP VI SCH ×4 (05:40→17:53)
[2020-07-19] MEDS: PROPOFOL 100 ML IV SCH ×4 (08:49→20:00)
[2020-07-19] MEDS: SODIUM CHLOR 0.9% PF (SALINE LOCK) 10ML VIAL/SYR IV SCH ×2 (09:46→22:00)
[2020-07-19] MEDS: DOCUSATE ORAL LIQUID 100 MG/10 ML UD GT SCH (09:46)
[2020-07-19] MEDS: ENOXAPARIN SOD 80 MG/0.8ML SYRINGE SC SCH ×2 (09:46→22:00)
[2020-07-19] MEDS: PANTOPRAZOLE 40 MG/10 ML VIAL INJ IV SCH ×2 (09:46→22:00)
[2020-07-19] MEDS: INSULIN LANTUS (GLARGINE) 1 /0.01ml (100units/ml) SC SCH (09:46)
[2020-07-19] MEDS: CHOLECALCIFEROL (VITD3) 1,000UNIT=25mCg TAB PO SCH (09:47)
[2020-07-19] MEDS: ACETAMINOPHEN 650 mg PER 20.3 mL UD GT PRN (11:43)
[2020-07-19] MEDS: MIDAZOLAM DRIP 50 mg/50mL 50 ML IV SCH (14:30)
[2020-07-19] MEDS: NOREPINEPHRINE 8 MG/250ML KIT 250 ML IV SCH (14:30)
[2020-07-19] MEDS: fentaNYL Drip 2500mCg/250mlNS 250 ML IV SCH (15:24)
[2020-07-19] MEDS: Glucerna 1.2 Cal 1Liter BOTTLE GT SCH (15:34)
[2020-07-19] MEDS ORDERED: VANCOMYCIN PER PHARMACY 0 MG IV SCH (17:15)
[2020-07-19] MEDS: VANCOMYCIN 1,250 MG in D5W 5% 250 ML IV SCH (18:04)
[2020-07-20] VITALS (100 sets, daily range): BP systolic 84–160; BP diastolic 40–80
[2020-07-20] MEDS: PROPOFOL 100 ML IV SCH (00:57)
[2020-07-20] MEDS: ACETAMINOPHEN 650 mg PER 20.3 mL UD GT PRN ×2 (02:00→12:00)
[2020-07-20] MEDS: ACCU-CHEK COMFORT CURVE STRIP VI SCH ×4 (06:00→17:25)
[2020-07-20] MEDS: InsuLIN REG 1unit/0.01ml Soln (100units/ml) SC SCH ×4 (06:00→17:25)
[2020-07-20] MEDS: CEFEPIME 1 GM in SODIUM CHL 0.9% 50 ML IV SCH ×3 (06:00→22:00)
[2020-07-20] MEDS: DOCUSATE ORAL LIQUID 100 MG/10 ML UD GT SCH (08:34)
[2020-07-20] MEDS: SODIUM CHLOR 0.9% PF (SALINE LOCK) 10ML VIAL/SYR IV SCH ×2 (08:35→22:00)
[2020-07-20] MEDS: PANTOPRAZOLE 40 MG/10 ML VIAL INJ IV SCH ×2 (08:35→22:00)
[2020-07-20] MEDS: CHOLECALCIFEROL (VITD3) 1,000UNIT=25mCg TAB PO SCH (08:35)
[2020-07-20] MEDS: ENOXAPARIN SOD 80 MG/0.8ML SYRINGE SC SCH ×2 (08:36→22:00)
[2020-07-20] MEDS: INSULIN LANTUS (GLARGINE) 1 /0.01ml (100units/ml) SC SCH (09:40)
[2020-07-20] MEDS: VANCOMYCIN 1,250 MG in D5W 5% 250 ML IV SCH (09:40)
[2020-07-20 14:31] LABS: Basophils # (auto) 0 10 ^3/uL (0-0.2); Eosinophils # (auto) 0.1 10 ^3/uL (0-0.8); Hemoglobin 8.2 g/dL (12.2-16.2); Monocytes # (auto) 0.5 10 ^3/uL (0-1.3)
[2020-07-20 14:33] LABS: Basophils % (auto) 0.2 % (0.0-2.0); Eosinophils % (auto) 0.9 % (0.0-7.0); Hematocrit 24.3 % (36.0-46.0); Lymphocytes % (auto) 14.2 % (10.0-50.0); Mean Corpuscular Hemoglobin 27.6 pg (28.0-32.0); Mean Corpuscular Hgb Conc. 33.9 g/dL (32.0-36.0); Mean Corpuscular Volume 81.4 fL (80.0-100.0); Monocytes % (auto) 7.8 % (0.0-12.0); Neutrophils # (auto) 5.3 10 ^3/uL (1.6-8.6); Neutrophils % (auto) 76.9 % (37.0-80.0); Platelet Count (auto) 187 10^3/uL (140-450); Red Blood Cells 2.99 10^6/uL (4.0-5.20); Red Cell Distribution Width 18.1 % (11.8-14.3); White Blood Cell 6.8 10^3/uL (4.4-10.8)
[2020-07-20 14:53] LABS: BUN/Creatinine Ratio 17.1; Calcium 8.4 mg/dL (8.5-10.1); Potassium 3.1 mmol/L (3.5-5.1)
[2020-07-20] MEDS ORDERED: POTASSIUM EFFERVESENT TAB 25 MEQ GT ONE (15:45)
[2020-07-20] MEDS: fentaNYL Drip 2500mCg/250mlNS 250 ML IV SCH (18:15)
[2020-07-20] MEDS: VANCOMYCIN 1GM/250ML 250 ML IV SCH (21:00)
[2020-07-21] VITALS (83 sets, daily range): BP systolic 113–153; BP diastolic 36–67
[2020-07-21 05:54] LABS: Basophils # (auto) 0 10 ^3/uL (0-0.2); Basophils % (auto) 0.4 % (0.0-2.0); Eosinophils # (auto) 0 10 ^3/uL (0-0.8); Eosinophils % (auto) 0.1 % (0.0-7.0); Hematocrit 26.3 % (36.0-46.0); Hemoglobin 8.8 g/dL (12.2-16.2); Lymphocytes # (auto) 1.4 10 ^3/uL (0.4-5.4); Lymphocytes % (auto) 17.1 % (10.0-50.0); Mean Corpuscular Hemoglobin 27.1 pg (28.0-32.0); Mean Corpuscular Hgb Conc. 33.6 g/dL (32.0-36.0); Mean Corpuscular Volume 80.7 fL (80.0-100.0); Monocytes # (auto) 0.6 10 ^3/uL (0-1.3); Monocytes % (auto) 7.4 % (0.0-12.0); Neutrophils # (auto) 6.1 10 ^3/uL (1.6-8.6); Platelet Count (auto) 212 10^3/uL (140-450); Red Blood Cells 3.26 10^6/uL (4.0-5.20); Red Cell Distribution Width 18.3 % (11.8-14.3); White Blood Cell 8.2 10^3/uL (4.4-10.8)
[2020-07-21] MEDS: CEFEPIME 1 GM in SODIUM CHL 0.9% 50 ML IV SCH (06:00)
[2020-07-21] MEDS: ACCU-CHEK COMFORT CURVE STRIP VI SCH ×4 (06:00→18:27)
[2020-07-21] MEDS: InsuLIN REG 1unit/0.01ml Soln (100units/ml) SC SCH ×4 (06:00→18:27)
[2020-07-21 06:13] LABS: Potassium 3.3 mmol/L (3.5-5.1)
[2020-07-21 06:17] LABS: BUN/Creatinine Ratio 39.3; Calcium 8.6 mg/dL (8.5-10.1)
[2020-07-21] MEDS: SODIUM CHLOR 0.9% PF (SALINE LOCK) 10ML VIAL/SYR IV SCH ×2 (08:20→22:00)
[2020-07-21] MEDS: VANCOMYCIN 1GM/250ML 250 ML IV SCH (08:20)
[2020-07-21] MEDS: PANTOPRAZOLE 40 MG/10 ML VIAL INJ IV SCH ×2 (08:20→22:00)
[2020-07-21] MEDS: ENOXAPARIN SOD 80 MG/0.8ML SYRINGE SC SCH ×2 (08:21→22:00)
[2020-07-21] MEDS: CHOLECALCIFEROL (VITD3) 1,000UNIT=25mCg TAB PO SCH (08:21)
[2020-07-21] MEDS: INSULIN LANTUS (GLARGINE) 1 /0.01ml (100units/ml) SC SCH (09:34)
[2020-07-21] MEDS: PROPOFOL 100 ML IV SCH (12:05)
[2020-07-21] MEDS ORDERED: POTASSIUM EFFERVESENT TAB 25 MEQ GT ONE (12:30)
[2020-07-21] MEDS ORDERED: levoFLOXacin 500MG 100 ML IV ONE (12:30)
[2020-07-21] MEDS: CLINDAMYCIN 600MG IV 50 ML IV SCH ×2 (14:00→22:00)
[2020-07-21] MEDS ORDERED: ROCURONIUM 10MG/ML 10ML VIAL IV ONE (16:34)
[2020-07-21] MEDS ORDERED: MIDAZOLAM HCL 1MG/1ML-2 ML VIAL ONE (16:34)
[2020-07-21] MEDS ORDERED: PROPOFOL 10 MG/ML 20 ML IV ONE (16:34)
[2020-07-21] MEDS ORDERED: fentaNYL CITRATE 100 MCG/2 ML VL ONE ×2 (16:34→17:22)
[2020-07-21] MEDS ORDERED: HYDROmorphone HCL 2 MG/ML VL ONE (16:34)
[2020-07-21] MEDS ORDERED: KETAMINE HCL 10 ML ONE (16:43)
[2020-07-21] MEDS ORDERED: DexAMETHasone SOD PHOS 10MG/1ML VIAL INJ ONE (16:47)
[2020-07-21] MEDS ORDERED: GLYCOPYRROLATE 0.2 MG/ML 1ML VIAL ONE (16:47)
[2020-07-21] MEDS: fentaNYL Drip 2500mCg/250mlNS 250 ML IV SCH (18:15)
[2020-07-21] MEDS ORDERED: POTASSIUM CHL 20MEQ/100ML 100 ML IV ONE ×2 (18:45→20:45)
[2020-07-22] VITALS (45 sets, daily range): BP systolic 77–164; BP diastolic 41–77
[2020-07-22] MEDS: InsuLIN REG 1unit/0.01ml Soln (100units/ml) SC SCH ×4 (00:23→18:00)
[2020-07-22] MEDS: ACCU-CHEK COMFORT CURVE STRIP VI SCH ×4 (00:28→18:12)
[2020-07-22] MEDS: CLINDAMYCIN 600MG IV 50 ML IV SCH ×3 (06:00→20:20)
[2020-07-22 06:38] LABS: Basophils # (auto) 0 10 ^3/uL (0-0.2); Basophils % (auto) 0.1 % (0.0-2.0); Eosinophils # (auto) 0 10 ^3/uL (0-0.8); Lymphocytes # (auto) 1.5 10 ^3/uL (0.4-5.4); Monocytes # (auto) 0.5 10 ^3/uL (0-1.3); Neutrophils # (auto) 5.5 10 ^3/uL (1.6-8.6); White Blood Cell 7.5 10^3/uL (4.4-10.8)
[2020-07-22 06:40] LABS: Hematocrit 26.1 % (36.0-46.0); Hemoglobin 8.7 g/dL (12.2-16.2); Lymphocytes % (auto) 20.4 % (10.0-50.0); Mean Corpuscular Hemoglobin 26.6 pg (28.0-32.0); Mean Corpuscular Hgb Conc. 33.2 g/dL (32.0-36.0); Mean Corpuscular Volume 80.2 fL (80.0-100.0); Monocytes % (auto) 6.9 % (0.0-12.0); Neutrophils % (auto) 72.6 % (37.0-80.0); Platelet Count (auto) 265 10^3/uL (140-450); Red Blood Cells 3.26 10^6/uL (4.0-5.20); Red Cell Distribution Width 18.4 % (11.8-14.3)
[2020-07-22 06:55] LABS: Calcium 8.2 mg/dL (8.5-10.1); Potassium 3.1 mmol/L (3.5-5.1)
[2020-07-22] MEDS: levoFLOXacin 500MG 100 ML IV SCH (07:58)
[2020-07-22] MEDS: CHOLECALCIFEROL (VITD3) 1,000UNIT=25mCg TAB PO SCH (07:59)
[2020-07-22] MEDS: PANTOPRAZOLE 40 MG/10 ML VIAL INJ IV SCH ×2 (07:59→20:18)
[2020-07-22] MEDS: SODIUM CHLOR 0.9% PF (SALINE LOCK) 10ML VIAL/SYR IV SCH ×2 (07:59→20:18)
[2020-07-22] MEDS: ENOXAPARIN SOD 80 MG/0.8ML SYRINGE SC SCH ×2 (07:59→20:18)
[2020-07-22] MEDS: INSULIN LANTUS (GLARGINE) 1 /0.01ml (100units/ml) SC SCH (10:00)
[2020-07-22] MEDS: PROPOFOL 100 ML IV SCH (12:15)
[2020-07-22] MEDS: POTASSIUM CHL 20MEQ/100ML 100 ML IV SCH ×3 (14:45→16:45)
[2020-07-22] MEDS: fentaNYL Drip 2500mCg/250mlNS 250 ML IV SCH (18:15)
[2020-07-23] VITALS (59 sets, daily range): BP systolic 112–167; BP diastolic 32–76
[2020-07-23] MEDS: ACCU-CHEK COMFORT CURVE STRIP VI SCH ×4 (00:30→18:00)
[2020-07-23] MEDS: InsuLIN REG 1unit/0.01ml Soln (100units/ml) SC SCH ×4 (00:30→18:00)
[2020-07-23] MEDS: CLINDAMYCIN 600MG IV 50 ML IV SCH ×3 (06:34→22:00)
[2020-07-23 08:33] LABS: Basophils # (auto) 0 10 ^3/uL (0-0.2); Basophils % (auto) 0.1 % (0.0-2.0); Eosinophils # (auto) 0 10 ^3/uL (0-0.8); Hemoglobin 7.7 g/dL (12.2-16.2); Monocytes # (auto) 0.4 10 ^3/uL (0-1.3); Neutrophils # (auto) 4.1 10 ^3/uL (1.6-8.6); White Blood Cell 5.7 10^3/uL (4.4-10.8)
[2020-07-23 08:34] LABS: Eosinophils % (auto) 0.1 % (0.0-7.0); Lymphocytes # (auto) 1.1 10 ^3/uL (0.4-5.4); Lymphocytes % (auto) 20.2 % (10.0-50.0); Mean Corpuscular Hemoglobin 26.8 pg (28.0-32.0); Mean Corpuscular Hgb Conc. 33.5 g/dL (32.0-36.0); Monocytes % (auto) 7.6 % (0.0-12.0); Platelet Count (auto) 236 10^3/uL (140-450); Red Blood Cells 2.88 10^6/uL (4.0-5.20); Red Cell Distribution Width 18.1 % (11.8-14.3)
[2020-07-23 08:52] LABS: BUN/Creatinine Ratio 68.8; Calcium 7.8 mg/dL (8.5-10.1)
[2020-07-23] MEDS: levoFLOXacin 500MG 100 ML IV SCH (09:25)
[2020-07-23] MEDS: SODIUM CHLOR 0.9% PF (SALINE LOCK) 10ML VIAL/SYR IV SCH ×2 (09:25→22:00)
[2020-07-23] MEDS: PANTOPRAZOLE 40 MG/10 ML VIAL INJ IV SCH ×2 (10:00→22:00)
[2020-07-23] MEDS: ENOXAPARIN SOD 80 MG/0.8ML SYRINGE SC SCH ×2 (11:00→22:00)
[2020-07-23] MEDS: CHOLECALCIFEROL (VITD3) 1,000UNIT=25mCg TAB PO SCH (11:00)
[2020-07-23] MEDS: INSULIN LANTUS (GLARGINE) 1 /0.01ml (100units/ml) SC SCH (11:00)
[2020-07-23] MEDS: PROPOFOL 100 ML IV SCH (12:15)
[2020-07-23] MEDS: fentaNYL Drip 2500mCg/250mlNS 250 ML IV SCH (18:15)
[2020-07-23] MEDS: hydrALAZINE HCL 20 MG/ML VL IV PRN (20:18)
[2020-07-23] MEDS: POTASSIUM CHL 20MEQ/100ML 100 ML IV SCH (21:30)
[2020-07-24] VITALS (54 sets, daily range): BP systolic 128–159; BP diastolic 49–71
[2020-07-24] MEDS: POTASSIUM CHL 20MEQ/100ML 100 ML IV SCH ×2 (00:14→02:00)
[2020-07-24] MEDS: CLINDAMYCIN 600MG IV 50 ML IV SCH ×2 (05:36→13:11)
[2020-07-24] MEDS: ACCU-CHEK COMFORT CURVE STRIP VI SCH ×5 (05:36→23:42)
[2020-07-24] MEDS: InsuLIN REG 1unit/0.01ml Soln (100units/ml) SC SCH ×5 (05:45→23:43)
[2020-07-24 05:59] LABS: Chloride 97 mmol/L (98-107); Potassium 3.5 mmol/L (3.5-5.1); Sodium 133 mmol/L (136-145)
[2020-07-24 06:14] LABS: Alanine Aminotransferase 14 U/L (13-56); Albumin 1.7 g/dL (3.4-5.0); Alkaline Phosphatase 96 U/L (45-117); Anion Gap 9 (5-15); Aspartate Aminotransferase 24 U/L (15-37); Bilirubin, Total 0.5 mg/dL (0.2-1.0); Blood Urea Nitrogen 9 mg/dL (7-18); Calcium 8.2 mg/dL (8.5-10.1); Carbon Dioxide 27 mmol/L (21-32); GFR African American 639 mL/min; GFR Non-African American 528 mL/min; Glucose 161 mg/dL (74-106)
[2020-07-24] MEDS: PANTOPRAZOLE 40 MG/10 ML VIAL INJ IV SCH ×2 (09:02→22:16)
[2020-07-24] MEDS: SODIUM CHLOR 0.9% PF (SALINE LOCK) 10ML VIAL/SYR IV SCH ×2 (09:02→22:16)
[2020-07-24] MEDS: levoFLOXacin 500MG 100 ML IV SCH (09:02)
[2020-07-24] MEDS: ENOXAPARIN SOD 80 MG/0.8ML SYRINGE SC SCH ×2 (10:17→22:17)
[2020-07-24] MEDS: CHOLECALCIFEROL (VITD3) 1,000UNIT=25mCg TAB PO SCH (10:17)
[2020-07-24] MEDS: INSULIN LANTUS (GLARGINE) 1 /0.01ml (100units/ml) SC SCH (11:50)
[2020-07-24] MEDS: PROPOFOL 100 ML IV SCH (12:15)
[2020-07-24] MEDS ORDERED: CEFTRIAXONE SODIUM 2 GM in D5W 5% 50 ML IV ONE (15:00)
[2020-07-24] MEDS: hydrALAZINE HCL 20 MG/ML VL IV PRN (16:06)
[2020-07-24] MEDS: fentaNYL Drip 2500mCg/250mlNS 250 ML IV SCH (18:15)
[2020-07-24] MEDS: LINEZOLID 600MG/300ML 300 ML IV SCH (22:16)
[2020-07-25] VITALS (44 sets, daily range): BP systolic 129–158; BP diastolic 53–74
[2020-07-25] MEDS: ACCU-CHEK COMFORT CURVE STRIP VI SCH ×4 (05:31→23:05)
[2020-07-25] MEDS: InsuLIN REG 1unit/0.01ml Soln (100units/ml) SC SCH ×3 (06:27→17:55)
[2020-07-25] MEDS: PANTOPRAZOLE 40 MG/10 ML VIAL INJ IV SCH ×2 (09:04→23:05)
[2020-07-25] MEDS: CEFTRIAXONE SODIUM 2 GM in D5W 5% 50 ML IV SCH (09:04)
[2020-07-25] MEDS: SODIUM CHLOR 0.9% PF (SALINE LOCK) 10ML VIAL/SYR IV SCH ×2 (09:04→23:05)
[2020-07-25] MEDS: LINEZOLID 600MG/300ML 300 ML IV SCH ×2 (10:00→22:00)
[2020-07-25] MEDS: ENOXAPARIN SOD 80 MG/0.8ML SYRINGE SC SCH ×2 (10:00→23:05)
[2020-07-25] MEDS: CHOLECALCIFEROL (VITD3) 1,000UNIT=25mCg TAB PO SCH (10:00)
[2020-07-25] MEDS: INSULIN LANTUS (GLARGINE) 1 /0.01ml (100units/ml) SC SCH (10:00)
[2020-07-25 10:56] LABS: Basophils # (auto) 0 10 ^3/uL (0-0.2); Eosinophils # (auto) 0 10 ^3/uL (0-0.8); Eosinophils % (auto) 0.2 % (0.0-7.0); Lymphocytes # (auto) 1.3 10 ^3/uL (0.4-5.4); White Blood Cell 10.2 10^3/uL (4.4-10.8)
[2020-07-25 10:58] LABS: Basophils % (auto) 0.2 % (0.0-2.0); Hematocrit 26.9 % (36.0-46.0); Lymphocytes % (auto) 12.4 % (10.0-50.0); Mean Corpuscular Hemoglobin 26.5 pg (28.0-32.0); Mean Corpuscular Hgb Conc. 33.6 g/dL (32.0-36.0); Mean Corpuscular Volume 78.8 fL (80.0-100.0); Monocytes # (auto) 0.4 10 ^3/uL (0-1.3); Monocytes % (auto) 4.1 % (0.0-12.0); Neutrophils # (auto) 8.5 10 ^3/uL (1.6-8.6); Neutrophils % (auto) 83.1 % (37.0-80.0); Platelet Count (auto) 277 10^3/uL (140-450); Red Blood Cells 3.42 10^6/uL (4.0-5.20); Red Cell Distribution Width 18.9 % (11.8-14.3)
[2020-07-25 11:00] LABS: BUN/Creatinine Ratio 31.8
[2020-07-25 11:06] LABS: Potassium 2.9 mmol/L (3.5-5.1)
[2020-07-25] MEDS: POTASSIUM CHL 20MEQ/100ML 100 ML IV SCH ×4 (12:30→18:52)
[2020-07-25] MEDS: fentaNYL Drip 2500mCg/250mlNS 250 ML IV SCH (18:15)
[2020-07-26] VITALS (28 sets, daily range): BP systolic 113–160; BP diastolic 36–73
[2020-07-26] MEDS: InsuLIN REG 1unit/0.01ml Soln (100units/ml) SC SCH ×5 (00:03→23:47)
[2020-07-26] MEDS: ACCU-CHEK COMFORT CURVE STRIP VI SCH ×4 (05:36→23:46)
[2020-07-26 06:31] LABS: Potassium 3.5 mmol/L (3.5-5.1)
[2020-07-26 06:37] LABS: Albumin 1.9 g/dL (3.4-5.0); BUN/Creatinine Ratio 17.9; Bilirubin, Total 0.4 mg/dL (0.2-1.0); Total Protein 6.3 g/dL (6.4-8.2)
[2020-07-26 07:09] LABS: White Blood Cell 7.7 10^3/uL (4.4-10.8)
[2020-07-26 07:13] LABS: Basophils # (auto) 0 10 ^3/uL (0-0.2); Basophils % (auto) 0.2 % (0.0-2.0); Eosinophils # (auto) 0.1 10 ^3/uL (0-0.8); Eosinophils % (auto) 0.8 % (0.0-7.0); Hematocrit 29.7 % (36.0-46.0); Lymphocytes # (auto) 1.4 10 ^3/uL (0.4-5.4); Lymphocytes % (auto) 18.4 % (10.0-50.0); Mean Corpuscular Hemoglobin 26.7 pg (28.0-32.0); Mean Corpuscular Hgb Conc. 33.8 g/dL (32.0-36.0); Monocytes # (auto) 0.4 10 ^3/uL (0-1.3); Monocytes % (auto) 4.6 % (0.0-12.0); Neutrophils # (auto) 5.8 10 ^3/uL (1.6-8.6); Nucleated Red Blood Cells % 0.2 %; Platelet Count (auto) 296 10^3/uL (140-450); Red Blood Cells 3.76 10^6/uL (4.0-5.20); Red Cell Distribution Width 18.5 % (11.8-14.3)
[2020-07-26] MEDS: CEFTRIAXONE SODIUM 2 GM in D5W 5% 50 ML IV SCH (08:20)
[2020-07-26] MEDS: LINEZOLID 600MG/300ML 300 ML IV SCH ×2 (09:46→21:44)
[2020-07-26] MEDS: PANTOPRAZOLE 40 MG/10 ML VIAL INJ IV SCH ×2 (09:46→21:44)
[2020-07-26] MEDS: SODIUM CHLOR 0.9% PF (SALINE LOCK) 10ML VIAL/SYR IV SCH ×2 (09:46→21:44)
[2020-07-26] MEDS: ENOXAPARIN SOD 80 MG/0.8ML SYRINGE SC SCH ×2 (09:47→21:45)
[2020-07-26] MEDS: CHOLECALCIFEROL (VITD3) 1,000UNIT=25mCg TAB PO SCH (09:47)
[2020-07-26] MEDS: INSULIN LANTUS (GLARGINE) 1 /0.01ml (100units/ml) SC SCH (09:48)
[2020-07-26] MEDS: fentaNYL Drip 2500mCg/250mlNS 250 ML IV SCH (10:27)
[2020-07-26] MEDS ORDERED: POTASSIUM EFFERVESENT TAB 25 MEQ PO ONE (11:15)
[2020-07-27] VITALS (26 sets, daily range): BP systolic 113–164; BP diastolic 48–76
[2020-07-27] MEDS: ACETAMINOPHEN 650 mg PER 20.3 mL UD GT PRN (00:45)
[2020-07-27] MEDS: hydrALAZINE HCL 20 MG/ML VL IV PRN (04:02)
[2020-07-27] MEDS: LORazepam 2MG/ML-1ML VIAL IV PRN (05:14)
[2020-07-27] MEDS: ACCU-CHEK COMFORT CURVE STRIP VI SCH ×4 (05:35→23:34)
[2020-07-27] MEDS: InsuLIN REG 1unit/0.01ml Soln (100units/ml) SC SCH ×4 (05:35→23:31)
[2020-07-27 05:49] LABS: Basophils # (auto) 0 10 ^3/uL (0-0.2); Basophils % (auto) 0.5 % (0.0-2.0); Eosinophils # (auto) 0.1 10 ^3/uL (0-0.8); Eosinophils % (auto) 1.1 % (0.0-7.0); Hematocrit 31.8 % (36.0-46.0); Hemoglobin 10.7 g/dL (12.2-16.2); Lymphocytes # (auto) 1.7 10 ^3/uL (0.4-5.4); Lymphocytes % (auto) 25.7 % (10.0-50.0); Mean Corpuscular Hemoglobin 26.6 pg (28.0-32.0); Mean Corpuscular Hgb Conc. 33.6 g/dL (32.0-36.0); Mean Corpuscular Volume 79.3 fL (80.0-100.0); Monocytes # (auto) 0.3 10 ^3/uL (0-1.3); Monocytes % (auto) 5.3 % (0.0-12.0); Neutrophils # (auto) 4.4 10 ^3/uL (1.6-8.6); Neutrophils % (auto) 67.4 % (37.0-80.0); Nucleated Red Blood Cells % 0.2 %; Platelet Count (auto) 270 10^3/uL (140-450); Red Blood Cells 4.01 10^6/uL (4.0-5.20); Red Cell Distribution Width 19.1 % (11.8-14.3); White Blood Cell 6.5 10^3/uL (4.4-10.8)
[2020-07-27 05:56] LABS: Albumin 2.1 g/dL (3.4-5.0); BUN/Creatinine Ratio 14.7; Calcium 8.2 mg/dL (8.5-10.1); Potassium 3.2 mmol/L (3.5-5.1)
[2020-07-27 05:59] LABS: Bilirubin, Total 0.4 mg/dL (0.2-1.0); Total Protein 6.4 g/dL (6.4-8.2)
[2020-07-27] MEDS ORDERED: POTASSIUM CHL 20MEQ/100ML 100 ML IV ONE ×2 (06:53→07:00)
[2020-07-27] MEDS ORDERED: METOPROLOL SUCCINATE XL 50 MG TAB PO SCH (10:00)
[2020-07-27] MEDS ORDERED: METOPROLOL SUCCINATE XL 50 MG TAB PO ONE (10:00)
[2020-07-27] MEDS: PANTOPRAZOLE 40 MG/10 ML VIAL INJ IV SCH ×2 (10:12→23:34)
[2020-07-27] MEDS: LINEZOLID 600MG/300ML 300 ML IV SCH ×2 (10:13→23:35)
[2020-07-27] MEDS: SODIUM CHLOR 0.9% PF (SALINE LOCK) 10ML VIAL/SYR IV SCH ×2 (10:13→23:34)
[2020-07-27] MEDS: ENOXAPARIN SOD 80 MG/0.8ML SYRINGE SC SCH ×2 (10:14→23:35)
[2020-07-27] MEDS: CHOLECALCIFEROL (VITD3) 1,000UNIT=25mCg TAB PO SCH (10:14)
[2020-07-27] MEDS: CEFTRIAXONE SODIUM 2 GM in D5W 5% 50 ML IV SCH (10:14)
[2020-07-27] MEDS: INSULIN LANTUS (GLARGINE) 1 /0.01ml (100units/ml) SC SCH (10:15)
[2020-07-27] MEDS: POTASSIUM CHL 20MEQ/100ML 100 ML IV SCH ×2 (11:36→14:29)
[2020-07-28 03:50] VITALS: BP 137/74
[2020-07-28 05:34] VITALS: BP 134/71
[2020-07-28] MEDS: InsuLIN REG 1unit/0.01ml Soln (100units/ml) SC SCH ×3 (06:09→17:11)
[2020-07-28] MEDS: ACCU-CHEK COMFORT CURVE STRIP VI SCH ×3 (06:14→17:10)
[2020-07-28 06:44] LABS: Basophils # (auto) 0 10 ^3/uL (0-0.2); Basophils % (auto) 0.3 % (0.0-2.0); Eosinophils # (auto) 0.1 10 ^3/uL (0-0.8); Eosinophils % (auto) 0.7 % (0.0-7.0); Hematocrit 33.3 % (36.0-46.0); Lymphocytes # (auto) 3.3 10 ^3/uL (0.4-5.4); Lymphocytes % (auto) 32.3 % (10.0-50.0); Mean Corpuscular Hemoglobin 26.5 pg (28.0-32.0); Mean Corpuscular Hgb Conc. 33.1 g/dL (32.0-36.0); Monocytes # (auto) 0.6 10 ^3/uL (0-1.3); Monocytes % (auto) 5.8 % (0.0-12.0); Neutrophils # (auto) 6.3 10 ^3/uL (1.6-8.6); Neutrophils % (auto) 60.9 % (37.0-80.0); Nucleated Red Blood Cells % 0.1 %; Platelet Count (auto) 272 10^3/uL (140-450); Red Blood Cells 4.16 10^6/uL (4.0-5.20); Red Cell Distribution Width 19.8 % (11.8-14.3); White Blood Cell 10.3 10^3/uL (4.4-10.8)
[2020-07-28 06:48] LABS: Potassium 3.9 mmol/L (3.5-5.1)
[2020-07-28 06:53] LABS: BUN/Creatinine Ratio 17.1; Calcium 8.7 mg/dL (8.5-10.1)
[2020-07-28 08:30] VITALS: BP 156/81
[2020-07-28] MEDS ORDERED: amLODIPine BESYLATE 5 MG TAB PO ONE (10:15)
[2020-07-28] MEDS: PANTOPRAZOLE 40 MG/10 ML VIAL INJ IV SCH ×2 (11:34→22:34)
[2020-07-28] MEDS: SODIUM CHLOR 0.9% PF (SALINE LOCK) 10ML VIAL/SYR IV SCH ×2 (11:34→22:34)
[2020-07-28] MEDS: CEFTRIAXONE SODIUM 2 GM in D5W 5% 50 ML IV SCH (11:34)
[2020-07-28] MEDS: LINEZOLID 600MG/300ML 300 ML IV SCH ×2 (11:35→22:35)
[2020-07-28] MEDS: ENOXAPARIN SOD 80 MG/0.8ML SYRINGE SC SCH ×2 (11:35→22:35)
[2020-07-28] MEDS: CHOLECALCIFEROL (VITD3) 1,000UNIT=25mCg TAB PO SCH (11:35)
[2020-07-28] MEDS: INSULIN LANTUS (GLARGINE) 1 /0.01ml (100units/ml) SC SCH (11:40)
[2020-07-28 12:54] VITALS: BP 153/70
[2020-07-28] MEDS: LORazepam 2MG/ML-1ML VIAL IV PRN ×2 (14:51→22:34)
[2020-07-28] MEDS: ACETAMINOPHEN 650 mg PER 20.3 mL UD GT PRN (14:51)
[2020-07-28 16:35] VITALS: BP 139/66
[2020-07-28 22:00] VITALS: BP 149/76
[2020-07-29] MEDS: InsuLIN REG 1unit/0.01ml Soln (100units/ml) SC SCH ×4 (01:00→17:52)
[2020-07-29] MEDS: ACCU-CHEK COMFORT CURVE STRIP VI SCH ×4 (01:00→17:47)
[2020-07-29 05:00] VITALS: BP 137/83
[2020-07-29 06:02] LABS: Hemoglobin 10.9 g/dL (12.2-16.2)
[2020-07-29 06:04] LABS: Hematocrit 31.6 % (36.0-46.0); Mean Corpuscular Hemoglobin 27.3 pg (28.0-32.0); Mean Corpuscular Hgb Conc. 34.3 g/dL (32.0-36.0); Mean Corpuscular Volume 79.7 fL (80.0-100.0); Platelet Count (auto) 262 10^3/uL (140-450); Red Blood Cells 3.97 10^6/uL (4.0-5.20); White Blood Cell 10.4 10^3/uL (4.4-10.8)
[2020-07-29 06:18] LABS: Calcium 8.5 mg/dL (8.5-10.1); Potassium 3.8 mmol/L (3.5-5.1)
[2020-07-29 06:21] LABS: BUN/Creatinine Ratio 17.1
[2020-07-29 06:34] LABS: Red Cell Distribution Width 20.3 % (11.8-14.3)
[2020-07-29 06:35] LABS: Basophils % (manual) 0 (0.0-2.0); Blast Cells 0; Myelocytes % 0; Promyelocytes % 0; Reactive Lymphocytes 0
[2020-07-29 08:41] LABS: Band Neutrophils % (manual) 2; Eosinophils % (manual) 2 (0-7); Lymphocytes % (manual) 31 (10.0-50.0); Metamyelocytes % 2; Monocytes % (manual) 9 (0-12)
[2020-07-29 09:00] VITALS: BP 132/71
[2020-07-29] MEDS: ENOXAPARIN SOD 80 MG/0.8ML SYRINGE SC SCH ×2 (10:00→21:31)
[2020-07-29] MEDS: PANTOPRAZOLE 40 MG/10 ML VIAL INJ IV SCH ×2 (10:00→21:30)
[2020-07-29] MEDS: SODIUM CHLOR 0.9% PF (SALINE LOCK) 10ML VIAL/SYR IV SCH ×2 (10:00→21:31)
[2020-07-29] MEDS: CHOLECALCIFEROL (VITD3) 1,000UNIT=25mCg TAB PO SCH (10:00)
[2020-07-29] MEDS: LINEZOLID 600MG/300ML 300 ML IV SCH ×2 (10:00→21:31)
[2020-07-29] MEDS: CEFTRIAXONE SODIUM 2 GM in D5W 5% 50 ML IV SCH (10:00)
[2020-07-29] MEDS: amLODIPine BESYLATE 5 MG TAB PO SCH (10:00)
[2020-07-29] MEDS: INSULIN LANTUS (GLARGINE) 1 /0.01ml (100units/ml) SC SCH (11:10)
[2020-07-29 13:00] VITALS: BP 140/64
[2020-07-29 17:00] VITALS: BP 137/71
[2020-07-29 22:00] VITALS: BP 119/60
[2020-07-30] MEDS: ACCU-CHEK COMFORT CURVE STRIP VI SCH ×4 (00:03→17:11)
[2020-07-30] MEDS: InsuLIN REG 1unit/0.01ml Soln (100units/ml) SC SCH ×4 (00:04→17:11)
[2020-07-30 05:00] VITALS: BP 146/76
[2020-07-30 05:39] LABS: Basophils # (auto) 0 10 ^3/uL (0-0.2); Basophils % (auto) 0.2 % (0.0-2.0); Eosinophils # (auto) 0.1 10 ^3/uL (0-0.8); Eosinophils % (auto) 1.3 % (0.0-7.0); Hematocrit 32.2 % (36.0-46.0); Hemoglobin 10.7 g/dL (12.2-16.2); Lymphocytes # (auto) 3.8 10 ^3/uL (0.4-5.4); Lymphocytes % (auto) 39.8 % (10.0-50.0); Mean Corpuscular Hemoglobin 26.5 pg (28.0-32.0); Mean Corpuscular Hgb Conc. 33.3 g/dL (32.0-36.0); Mean Corpuscular Volume 79.5 fL (80.0-100.0); Monocytes # (auto) 0.7 10 ^3/uL (0-1.3); Monocytes % (auto) 6.9 % (0.0-12.0); Neutrophils % (auto) 51.8 % (37.0-80.0); Platelet Count (auto) 237 10^3/uL (140-450); Red Blood Cells 4.05 10^6/uL (4.0-5.20); Red Cell Distribution Width 19.7 % (11.8-14.3); White Blood Cell 9.6 10^3/uL (4.4-10.8)
[2020-07-30 05:50] LABS: Potassium 3.6 mmol/L (3.5-5.1)
[2020-07-30 05:59] LABS: BUN/Creatinine Ratio 16.7; Calcium 8.5 mg/dL (8.5-10.1)
[2020-07-30 09:00] VITALS: BP 125/61
[2020-07-30] MEDS: CEFTRIAXONE SODIUM 2 GM in D5W 5% 50 ML IV SCH (10:45)
[2020-07-30] MEDS: PANTOPRAZOLE 40 MG/10 ML VIAL INJ IV SCH ×2 (10:45→22:00)
[2020-07-30] MEDS: SODIUM CHLOR 0.9% PF (SALINE LOCK) 10ML VIAL/SYR IV SCH ×2 (10:46→22:00)
[2020-07-30] MEDS: amLODIPine BESYLATE 5 MG TAB PO SCH (10:47)
[2020-07-30] MEDS: INSULIN LANTUS (GLARGINE) 1 /0.01ml (100units/ml) SC SCH (10:48)
[2020-07-30] MEDS: CHOLECALCIFEROL (VITD3) 1,000UNIT=25mCg TAB PO SCH (10:48)
[2020-07-30] MEDS: ENOXAPARIN SOD 80 MG/0.8ML SYRINGE SC SCH (10:48)
[2020-07-30] MEDS: LINEZOLID 600MG/300ML 300 ML IV SCH ×2 (12:47→22:00)
[2020-07-30 13:00] VITALS: BP 137/60
[2020-07-30 16:47] VITALS: BP 131/56
[2020-07-30 21:05] VITALS: BP 131/56
[2020-07-30 22:00] VITALS: BP 128/68
[2020-07-30] MEDS: APIXABAN 5 MG TAB PO SCH (22:00)
[2020-07-31] MEDS: ACCU-CHEK COMFORT CURVE STRIP VI SCH ×5 (00:05→23:42)
[2020-07-31] MEDS: InsuLIN REG 1unit/0.01ml Soln (100units/ml) SC SCH ×5 (00:08→23:46)
[2020-07-31] MEDS: LORazepam 2MG/ML-1ML VIAL IV PRN (01:56)
[2020-07-31 05:00] VITALS: BP 124/65
[2020-07-31 06:21] LABS: Basophils # (auto) 0 10 ^3/uL (0-0.2); Eosinophils # (auto) 0.1 10 ^3/uL (0-0.8); Lymphocytes # (auto) 3.5 10 ^3/uL (0.4-5.4); Neutrophils % (auto) 52.6 % (37.0-80.0); Nucleated Red Blood Cells % 0.1 %
[2020-07-31 06:23] LABS: Basophils % (auto) 0.3 % (0.0-2.0); Eosinophils % (auto) 1.1 % (0.0-7.0); Hematocrit 31.4 % (36.0-46.0); Hemoglobin 10.7 g/dL (12.2-16.2); Lymphocytes % (auto) 37.5 % (10.0-50.0); Mean Corpuscular Hemoglobin 27.1 pg (28.0-32.0); Mean Corpuscular Volume 79.9 fL (80.0-100.0); Monocytes # (auto) 0.8 10 ^3/uL (0-1.3); Monocytes % (auto) 8.5 % (0.0-12.0); Neutrophils # (auto) 4.9 10 ^3/uL (1.6-8.6); Platelet Count (auto) 236 10^3/uL (140-450); Red Blood Cells 3.94 10^6/uL (4.0-5.20); White Blood Cell 9.3 10^3/uL (4.4-10.8)
[2020-07-31 06:39] LABS: BUN/Creatinine Ratio 17.5; Calcium 8.7 mg/dL (8.5-10.1); Potassium 3.8 mmol/L (3.5-5.1)
[2020-07-31 09:00] VITALS: BP 134/66
[2020-07-31] MEDS: SODIUM CHLOR 0.9% PF (SALINE LOCK) 10ML VIAL/SYR IV SCH ×2 (09:45→22:17)
[2020-07-31] MEDS: APIXABAN 5 MG TAB PO SCH ×2 (10:02→22:17)
[2020-07-31] MEDS: CHOLECALCIFEROL (VITD3) 1,000UNIT=25mCg TAB PO SCH (10:02)
[2020-07-31] MEDS: LINEZOLID 600MG/300ML 300 ML IV SCH ×2 (10:02→22:00)
[2020-07-31] MEDS: PANTOPRAZOLE 40 MG/10 ML VIAL INJ IV SCH ×2 (10:02→22:17)
[2020-07-31] MEDS: amLODIPine BESYLATE 5 MG TAB PO SCH (10:05)
[2020-07-31] MEDS: INSULIN LANTUS (GLARGINE) 1 /0.01ml (100units/ml) SC SCH (10:07)
[2020-07-31 12:52] VITALS: BP 133/80
[2020-07-31] MEDS: CEFTRIAXONE SODIUM 2 GM in D5W 5% 50 ML IV SCH (13:52)
[2020-07-31 17:00] VITALS: BP 142/69
[2020-07-31 22:00] VITALS: BP 141/74
[2020-08-01] MEDS: ACETAMINOPHEN 650 mg PER 20.3 mL UD GT PRN (04:09)
[2020-08-01] MEDS: LORazepam 2MG/ML-1ML VIAL IV PRN (04:47)
[2020-08-01 05:00] VITALS: BP 130/78
[2020-08-01] MEDS: ACCU-CHEK COMFORT CURVE STRIP VI SCH ×4 (05:25→23:31)
[2020-08-01] MEDS: InsuLIN REG 1unit/0.01ml Soln (100units/ml) SC SCH ×4 (05:31→23:34)
[2020-08-01 06:35] LABS: Basophils # (auto) 0 10 ^3/uL (0-0.2); Basophils % (auto) 0.5 % (0.0-2.0); Eosinophils # (auto) 0.1 10 ^3/uL (0-0.8); Eosinophils % (auto) 1.2 % (0.0-7.0); Hematocrit 29.7 % (36.0-46.0); Lymphocytes # (auto) 2.3 10 ^3/uL (0.4-5.4); Lymphocytes % (auto) 32.8 % (10.0-50.0); Mean Corpuscular Hemoglobin 27.1 pg (28.0-32.0); Mean Corpuscular Hgb Conc. 33.5 g/dL (32.0-36.0); Mean Corpuscular Volume 80.8 fL (80.0-100.0); Monocytes # (auto) 0.5 10 ^3/uL (0-1.3); Monocytes % (auto) 7.8 % (0.0-12.0); Neutrophils % (auto) 57.7 % (37.0-80.0); Nucleated Red Blood Cells % 0.1 %; Platelet Count (auto) 201 10^3/uL (140-450); Red Blood Cells 3.68 10^6/uL (4.0-5.20); White Blood Cell 6.9 10^3/uL (4.4-10.8)
[2020-08-01 06:54] LABS: Red Cell Distribution Width 20.1 % (11.8-14.3)
[2020-08-01 07:00] LABS: Calcium 8.9 mg/dL (8.5-10.1); Potassium 3.5 mmol/L (3.5-5.1)
[2020-08-01 07:04] LABS: BUN/Creatinine Ratio 18.8
[2020-08-01 08:26] VITALS: BP 138/66
[2020-08-01] MEDS: PANTOPRAZOLE 40 MG/10 ML VIAL INJ IV SCH ×2 (09:34→22:06)
[2020-08-01] MEDS: APIXABAN 5 MG TAB PO SCH ×2 (09:34→22:06)
[2020-08-01] MEDS: SODIUM CHLOR 0.9% PF (SALINE LOCK) 10ML VIAL/SYR IV SCH ×2 (09:34→22:06)
[2020-08-01] MEDS: LINEZOLID 600MG/300ML 300 ML IV SCH ×2 (09:34→22:06)
[2020-08-01] MEDS: amLODIPine BESYLATE 5 MG TAB PO SCH (09:35)
[2020-08-01] MEDS: INSULIN LANTUS (GLARGINE) 1 /0.01ml (100units/ml) SC SCH (11:48)
[2020-08-01] MEDS: CHOLECALCIFEROL (VITD3) 1,000UNIT=25mCg TAB PO SCH (11:48)
[2020-08-01 12:55] VITALS: BP 140/67
[2020-08-01] MEDS: CEFTRIAXONE SODIUM 2 GM in D5W 5% 50 ML IV SCH (13:18)
[2020-08-01 17:00] VITALS: BP 122/63
[2020-08-01 22:00] VITALS: BP 152/73
[2020-08-02 05:00] VITALS: BP 149/81
[2020-08-02] MEDS: ACCU-CHEK COMFORT CURVE STRIP VI SCH ×4 (06:00→23:27)
[2020-08-02] MEDS: InsuLIN REG 1unit/0.01ml Soln (100units/ml) SC SCH ×4 (06:56→23:32)
[2020-08-02 07:09] LABS: Basophils # (auto) 0.1 10 ^3/uL (0-0.2); Eosinophils # (auto) 0.1 10 ^3/uL (0-0.8); Monocytes # (auto) 0.5 10 ^3/uL (0-1.3)
[2020-08-02 07:10] LABS: Basophils % (auto) 1.1 % (0.0-2.0); Eosinophils % (auto) 1.8 % (0.0-7.0); Hematocrit 29.7 % (36.0-46.0); Lymphocytes # (auto) 2.8 10 ^3/uL (0.4-5.4); Lymphocytes % (auto) 33.3 % (10.0-50.0); Mean Corpuscular Hemoglobin 27.1 pg (28.0-32.0); Mean Corpuscular Hgb Conc. 33.7 g/dL (32.0-36.0); Mean Corpuscular Volume 80.6 fL (80.0-100.0); Monocytes % (auto) 5.9 % (0.0-12.0); Neutrophils # (auto) 4.9 10 ^3/uL (1.6-8.6); Neutrophils % (auto) 57.9 % (37.0-80.0); Nucleated Red Blood Cells % 0.4 %; Platelet Count (auto) 204 10^3/uL (140-450); Red Blood Cells 3.69 10^6/uL (4.0-5.20); White Blood Cell 8.5 10^3/uL (4.4-10.8)
[2020-08-02 07:18] LABS: BUN/Creatinine Ratio 26.7; Calcium 8.6 mg/dL (8.5-10.1); Potassium 3.6 mmol/L (3.5-5.1)
[2020-08-02 09:00] VITALS: BP_SYST 101; BP_SYST 120; BP_DIAS 42; BP_DIAS 83
[2020-08-02] MEDS: APIXABAN 5 MG TAB PO SCH ×2 (09:49→21:36)
[2020-08-02] MEDS: amLODIPine BESYLATE 5 MG TAB PO SCH (09:49)
[2020-08-02] MEDS: CEFTRIAXONE SODIUM 2 GM in D5W 5% 50 ML IV SCH (09:49)
[2020-08-02] MEDS: CHOLECALCIFEROL (VITD3) 1,000UNIT=25mCg TAB PO SCH (09:49)
[2020-08-02] MEDS: SODIUM CHLOR 0.9% PF (SALINE LOCK) 10ML VIAL/SYR IV SCH ×2 (09:49→21:35)
[2020-08-02] MEDS: PANTOPRAZOLE 40 MG/10 ML VIAL INJ IV SCH ×2 (09:49→21:35)
[2020-08-02] MEDS: LINEZOLID 600MG/300ML 300 ML IV SCH ×2 (10:49→21:35)
[2020-08-02] MEDS: INSULIN LANTUS (GLARGINE) 1 /0.01ml (100units/ml) SC SCH (11:20)
[2020-08-02 13:00] VITALS: BP 140/55
[2020-08-02 17:00] VITALS: BP 126/71
[2020-08-02 22:00] VITALS: BP 138/74
[2020-08-03 05:00] VITALS: BP 123/56
[2020-08-03] MEDS: ACCU-CHEK COMFORT CURVE STRIP VI SCH ×3 (05:13→17:40)
[2020-08-03] MEDS: InsuLIN REG 1unit/0.01ml Soln (100units/ml) SC SCH ×3 (05:16→17:43)
[2020-08-03 05:48] LABS: Basophils # (auto) 0 10 ^3/uL (0-0.2); Basophils % (auto) 0.6 % (0.0-2.0); Eosinophils # (auto) 0.1 10 ^3/uL (0-0.8); Eosinophils % (auto) 1.4 % (0.0-7.0); Hematocrit 31.2 % (36.0-46.0); Hemoglobin 10.8 g/dL (12.2-16.2); Lymphocytes % (auto) 36.5 % (10.0-50.0); Mean Corpuscular Hemoglobin 27.5 pg (28.0-32.0); Mean Corpuscular Hgb Conc. 34.6 g/dL (32.0-36.0); Mean Corpuscular Volume 79.5 fL (80.0-100.0); Monocytes # (auto) 0.6 10 ^3/uL (0-1.3); Monocytes % (auto) 7.6 % (0.0-12.0); Neutrophils # (auto) 4.4 10 ^3/uL (1.6-8.6); Neutrophils % (auto) 53.9 % (37.0-80.0); Platelet Count (auto) 224 10^3/uL (140-450); Red Blood Cells 3.93 10^6/uL (4.0-5.20); White Blood Cell 8.2 10^3/uL (4.4-10.8)
[2020-08-03 05:49] LABS: Red Cell Distribution Width 20.2 % (11.8-14.3)
[2020-08-03 06:05] LABS: Potassium 3.8 mmol/L (3.5-5.1)
[2020-08-03 06:13] LABS: BUN/Creatinine Ratio 22.2; Calcium 8.9 mg/dL (8.5-10.1)
[2020-08-03 09:00] VITALS: BP 145/74
[2020-08-03] MEDS: PANTOPRAZOLE 40 MG/10 ML VIAL INJ IV SCH ×2 (09:45→20:42)
[2020-08-03] MEDS: SODIUM CHLOR 0.9% PF (SALINE LOCK) 10ML VIAL/SYR IV SCH ×2 (09:46→20:43)
[2020-08-03] MEDS: amLODIPine BESYLATE 5 MG TAB PO SCH (09:47)
[2020-08-03] MEDS: APIXABAN 5 MG TAB PO SCH ×2 (09:47→20:42)
[2020-08-03] MEDS: LINEZOLID 600MG/300ML 300 ML IV SCH ×2 (09:48→20:43)
[2020-08-03] MEDS: CHOLECALCIFEROL (VITD3) 1,000UNIT=25mCg TAB PO SCH (10:10)
[2020-08-03] MEDS: CEFTRIAXONE SODIUM 2 GM in D5W 5% 50 ML IV SCH (10:13)
[2020-08-03 13:00] VITALS: BP 131/63
[2020-08-03 17:00] VITALS: BP 132/72
[2020-08-03] MEDS: Glucerna 1.2 Cal 1Liter BOTTLE GT SCH (18:22)
[2020-08-03 22:10] VITALS: BP 125/63
[2020-08-04] MEDS: InsuLIN REG 1unit/0.01ml Soln (100units/ml) SC SCH ×4 (00:36→18:10)
[2020-08-04] MEDS: ACCU-CHEK COMFORT CURVE STRIP VI SCH ×4 (00:36→18:08)
[2020-08-04 05:14] VITALS: BP 125/62
[2020-08-04 06:08] LABS: Basophils # (auto) 0 10 ^3/uL (0-0.2); Basophils % (auto) 0.4 % (0.0-2.0); Eosinophils # (auto) 0.1 10 ^3/uL (0-0.8); Eosinophils % (auto) 0.7 % (0.0-7.0); Hematocrit 30.5 % (36.0-46.0); Hemoglobin 10.3 g/dL (12.2-16.2); Lymphocytes # (auto) 3.1 10 ^3/uL (0.4-5.4); Lymphocytes % (auto) 36.4 % (10.0-50.0); Mean Corpuscular Hgb Conc. 33.9 g/dL (32.0-36.0); Mean Corpuscular Volume 79.8 fL (80.0-100.0); Monocytes # (auto) 0.8 10 ^3/uL (0-1.3); Monocytes % (auto) 9.1 % (0.0-12.0); Neutrophils # (auto) 4.5 10 ^3/uL (1.6-8.6); Neutrophils % (auto) 53.4 % (37.0-80.0); Nucleated Red Blood Cells % 0.1 %; Platelet Count (auto) 202 10^3/uL (140-450); Red Blood Cells 3.83 10^6/uL (4.0-5.20); Red Cell Distribution Width 20.5 % (11.8-14.3); White Blood Cell 8.4 10^3/uL (4.4-10.8)
[2020-08-04 06:15] LABS: Potassium 3.8 mmol/L (3.5-5.1)
[2020-08-04 06:19] LABS: BUN/Creatinine Ratio 28.6
[2020-08-04 08:30] VITALS: BP 138/74
[2020-08-04] MEDS: PANTOPRAZOLE 40 MG/10 ML VIAL INJ IV SCH ×2 (09:19→21:45)
[2020-08-04] MEDS: APIXABAN 5 MG TAB PO SCH ×2 (09:20→21:46)
[2020-08-04] MEDS: amLODIPine BESYLATE 5 MG TAB PO SCH (09:21)
[2020-08-04] MEDS: SODIUM CHLOR 0.9% PF (SALINE LOCK) 10ML VIAL/SYR IV SCH ×2 (09:21→21:45)
[2020-08-04] MEDS: LINEZOLID 600MG/300ML 300 ML IV SCH (09:24)
[2020-08-04] MEDS: CHOLECALCIFEROL (VITD3) 1,000UNIT=25mCg TAB PO SCH (11:08)
[2020-08-04 12:30] VITALS: BP 133/66
[2020-08-04 17:00] VITALS: BP 119/61
[2020-08-04] MEDS: LINEZOLID 600MG TABLET PO SCH (21:46)
[2020-08-04] MEDS: CEPHALEXIN 250 MG CAP PO SCH (21:46)
[2020-08-04] MEDS ORDERED: CEFUROXIME 250 MG TAB PO SCH (22:00)
[2020-08-04 22:26] VITALS: BP 129/76
[2020-08-05] MEDS: ACETAMINOPHEN 650 mg PER 20.3 mL UD GT PRN ×2 (00:02→08:41)
[2020-08-05] MEDS: ACCU-CHEK COMFORT CURVE STRIP VI SCH ×4 (00:02→17:52)
[2020-08-05] MEDS: InsuLIN REG 1unit/0.01ml Soln (100units/ml) SC SCH ×4 (00:04→17:53)
[2020-08-05 04:54] VITALS: BP 138/70
[2020-08-05] MEDS: CEPHALEXIN 250 MG CAP PO SCH ×4 (05:34→22:18)
[2020-08-05 05:52] LABS: Basophils # (auto) 0 10 ^3/uL (0-0.2); Basophils % (auto) 0.5 % (0.0-2.0); Eosinophils # (auto) 0.2 10 ^3/uL (0-0.8); Eosinophils % (auto) 2.3 % (0.0-7.0); Hematocrit 31.7 % (36.0-46.0); Hemoglobin 10.9 g/dL (12.2-16.2); Lymphocytes # (auto) 2.8 10 ^3/uL (0.4-5.4); Lymphocytes % (auto) 35.8 % (10.0-50.0); Mean Corpuscular Hemoglobin 27.6 pg (28.0-32.0); Mean Corpuscular Hgb Conc. 34.4 g/dL (32.0-36.0); Monocytes # (auto) 0.6 10 ^3/uL (0-1.3); Monocytes % (auto) 7.7 % (0.0-12.0); Neutrophils # (auto) 4.2 10 ^3/uL (1.6-8.6); Neutrophils % (auto) 53.7 % (37.0-80.0); Nucleated Red Blood Cells % 0.3 %; Platelet Count (auto) 204 10^3/uL (140-450); Red Blood Cells 3.96 10^6/uL (4.0-5.20); White Blood Cell 7.8 10^3/uL (4.4-10.8)
[2020-08-05 07:25] LABS: Anion Gap 8 (5-15); Carbon Dioxide 27 mmol/L (21-32); Chloride 94 mmol/L (98-107); Potassium 3.5 mmol/L (3.5-5.1); Sodium 129 mmol/L (136-145)
[2020-08-05 07:26] LABS: BUN/Creatinine Ratio 37.9; Blood Urea Nitrogen 11 mg/dL (7-18); Calcium 9.2 mg/dL (8.5-10.1); GFR African American 299 mL/min; GFR Non-African American 247 mL/min; Glucose 201 mg/dL (74-106)
[2020-08-05 08:00] VITALS: BP 151/84
[2020-08-05] MEDS: PANTOPRAZOLE 40 MG/10 ML VIAL INJ IV SCH ×2 (08:42→22:20)
[2020-08-05] MEDS: LINEZOLID 600MG TABLET PO SCH ×2 (08:42→22:19)
[2020-08-05] MEDS: SODIUM CHLOR 0.9% PF (SALINE LOCK) 10ML VIAL/SYR IV SCH ×2 (08:42→22:17)
[2020-08-05] MEDS: amLODIPine BESYLATE 5 MG TAB PO SCH (08:43)
[2020-08-05] MEDS: APIXABAN 5 MG TAB PO SCH ×2 (08:43→22:18)
[2020-08-05] MEDS: CHOLECALCIFEROL (VITD3) 1,000UNIT=25mCg TAB PO SCH (08:44)
[2020-08-05] MEDS ORDERED: LORazepam 2MG/ML-1ML VIAL IV ONE (10:45)
[2020-08-05 12:00] VITALS: BP 149/74
[2020-08-05] MEDS ORDERED: MORPHINE SULF INJ 2 MG/ML SYRINGE 1ML IV ONE (12:00)
[2020-08-05 16:00] VITALS: BP 149/79
[2020-08-05 22:23] VITALS: BP 142/71
[2020-08-05] MEDS: MORPHINE SULF INJ 2 MG/ML SYRINGE 1ML IV PRN (23:25)
[2020-08-06] MEDS: InsuLIN REG 1unit/0.01ml Soln (100units/ml) SC SCH ×5 (00:12→23:33)
[2020-08-06] MEDS: ACCU-CHEK COMFORT CURVE STRIP VI SCH ×5 (00:24→23:30)
[2020-08-06 05:00] VITALS: BP 142/71
[2020-08-06] MEDS: CEPHALEXIN 250 MG CAP PO SCH ×4 (06:00→22:24)
[2020-08-06 06:29] LABS: Basophils # (auto) 0 10 ^3/uL (0-0.2); Basophils % (auto) 0.4 % (0.0-2.0); Eosinophils # (auto) 0.2 10 ^3/uL (0-0.8); Eosinophils % (auto) 2.6 % (0.0-7.0); Hematocrit 30.6 % (36.0-46.0); Hemoglobin 10.4 g/dL (12.2-16.2); Lymphocytes # (auto) 3.3 10 ^3/uL (0.4-5.4); Lymphocytes % (auto) 39.6 % (10.0-50.0); Mean Corpuscular Hemoglobin 27.6 pg (28.0-32.0); Mean Corpuscular Hgb Conc. 34.1 g/dL (32.0-36.0); Mean Corpuscular Volume 80.8 fL (80.0-100.0); Monocytes # (auto) 0.6 10 ^3/uL (0-1.3); Neutrophils # (auto) 4.2 10 ^3/uL (1.6-8.6); Neutrophils % (auto) 50.4 % (37.0-80.0); Nucleated Red Blood Cells % 0.1 %; Platelet Count (auto) 187 10^3/uL (140-450); Red Blood Cells 3.79 10^6/uL (4.0-5.20); White Blood Cell 8.3 10^3/uL (4.4-10.8)
[2020-08-06 06:30] LABS: Red Cell Distribution Width 20.3 % (11.8-14.3)
[2020-08-06] MEDS ORDERED: ACETAMINOPHEN 325 MG TAB PO PRN (06:30)
[2020-08-06 06:31] LABS: BUN/Creatinine Ratio 43.6; Calcium 8.7 mg/dL (8.5-10.1); Potassium 3.7 mmol/L (3.5-5.1)
[2020-08-06] MEDS ORDERED: ACETAMINOPHEN 650 mg PER 20.3 mL UD GT PRN (07:15)
[2020-08-06] MEDS: PANTOPRAZOLE 40 MG/10 ML VIAL INJ IV SCH ×2 (09:08→22:23)
[2020-08-06] MEDS: CHOLECALCIFEROL (VITD3) 1,000UNIT=25mCg TAB PO SCH (09:08)
[2020-08-06] MEDS: APIXABAN 5 MG TAB PO SCH ×2 (09:08→22:24)
[2020-08-06] MEDS: SODIUM CHLOR 0.9% PF (SALINE LOCK) 10ML VIAL/SYR IV SCH ×2 (09:10→22:24)
[2020-08-06] MEDS: amLODIPine BESYLATE 5 MG TAB PO SCH (09:10)
[2020-08-06] MEDS: LINEZOLID 600MG TABLET PO SCH ×2 (09:10→22:25)
[2020-08-06 09:30] VITALS: BP 129/71
[2020-08-06] MEDS: MORPHINE SULF INJ 2 MG/ML SYRINGE 1ML IV PRN ×3 (10:24→21:47)
[2020-08-06 13:30] VITALS: BP 129/67
[2020-08-06 14:01] VITALS: BP 129/67
[2020-08-06] MEDS ORDERED: DEXTROSE (50%) 50ML SYRG IV PRN (17:15)
[2020-08-06 22:00] VITALS: BP 117/70
[2020-08-07] MEDS: MORPHINE SULF INJ 2 MG/ML SYRINGE 1ML IV PRN ×3 (04:20→14:17)
[2020-08-07 05:00] VITALS: BP 136/61
[2020-08-07] MEDS: CEPHALEXIN 250 MG CAP PO SCH ×4 (06:29→21:59)
[2020-08-07] MEDS: ACCU-CHEK COMFORT CURVE STRIP VI SCH ×4 (06:29→21:59)
[2020-08-07] MEDS: InsuLIN REG 1unit/0.01ml Soln (100units/ml) SC SCH ×4 (06:43→22:51)
[2020-08-07 06:57] LABS: Basophils # (auto) 0 10 ^3/uL (0-0.2); Basophils % (auto) 0.4 % (0.0-2.0); Eosinophils # (auto) 0.2 10 ^3/uL (0-0.8); Eosinophils % (auto) 2.5 % (0.0-7.0); Hematocrit 30.3 % (36.0-46.0); Hemoglobin 10.3 g/dL (12.2-16.2); Lymphocytes # (auto) 2.4 10 ^3/uL (0.4-5.4); Lymphocytes % (auto) 32.9 % (10.0-50.0); Mean Corpuscular Hemoglobin 27.2 pg (28.0-32.0); Mean Corpuscular Hgb Conc. 33.8 g/dL (32.0-36.0); Mean Corpuscular Volume 80.5 fL (80.0-100.0); Monocytes # (auto) 0.6 10 ^3/uL (0-1.3); Monocytes % (auto) 8.3 % (0.0-12.0); Neutrophils % (auto) 55.9 % (37.0-80.0); Platelet Count (auto) 186 10^3/uL (140-450); Red Blood Cells 3.77 10^6/uL (4.0-5.20); Red Cell Distribution Width 19.7 % (11.8-14.3); White Blood Cell 7.2 10^3/uL (4.4-10.8)
[2020-08-07 07:28] LABS: BUN/Creatinine Ratio 51.5; Calcium 8.5 mg/dL (8.5-10.1); Potassium 3.6 mmol/L (3.5-5.1)
[2020-08-07 09:00] VITALS: BP 130/88
[2020-08-07] MEDS: CHOLECALCIFEROL (VITD3) 1,000UNIT=25mCg TAB PO SCH (09:47)
[2020-08-07] MEDS: LINEZOLID 600MG TABLET PO SCH ×2 (09:47→21:59)
[2020-08-07] MEDS: APIXABAN 5 MG TAB PO SCH ×2 (09:48→21:59)
[2020-08-07] MEDS: amLODIPine BESYLATE 5 MG TAB PO SCH (09:49)
[2020-08-07] MEDS: SODIUM CHLOR 0.9% PF (SALINE LOCK) 10ML VIAL/SYR IV SCH ×2 (09:49→21:59)
[2020-08-07] MEDS: PANTOPRAZOLE 40 MG/10 ML VIAL INJ IV SCH ×2 (09:49→21:59)
[2020-08-07] MEDS ORDERED: DEXTROSE (50%) 50ML SYRG IV PRN (11:00)
[2020-08-07 13:00] VITALS: BP 108/51
[2020-08-07 17:00] VITALS: BP 100/62
[2020-08-07 22:00] VITALS: BP 118/79
[2020-08-07] MEDS: INSULIN LANTUS (GLARGINE) 1 /0.01ml (100units/ml) SC SCH (22:51)
[2020-08-08] MEDS: MORPHINE SULF INJ 2 MG/ML SYRINGE 1ML IV PRN ×4 (03:37→23:10)
[2020-08-08 05:13] VITALS: BP 148/78
[2020-08-08 06:11] LABS: Basophils # (auto) 0 10 ^3/uL (0-0.2); Basophils % (auto) 0.4 % (0.0-2.0); Eosinophils # (auto) 0.2 10 ^3/uL (0-0.8); Eosinophils % (auto) 2.2 % (0.0-7.0); Hematocrit 32.8 % (36.0-46.0); Lymphocytes # (auto) 3.3 10 ^3/uL (0.4-5.4); Lymphocytes % (auto) 34.5 % (10.0-50.0); Mean Corpuscular Hemoglobin 27.1 pg (28.0-32.0); Mean Corpuscular Hgb Conc. 33.6 g/dL (32.0-36.0); Mean Corpuscular Volume 80.8 fL (80.0-100.0); Monocytes # (auto) 0.7 10 ^3/uL (0-1.3); Neutrophils # (auto) 5.3 10 ^3/uL (1.6-8.6); Neutrophils % (auto) 55.9 % (37.0-80.0); Nucleated Red Blood Cells % 0.2 %; Platelet Count (auto) 204 10^3/uL (140-450); Red Blood Cells 4.05 10^6/uL (4.0-5.20); White Blood Cell 9.5 10^3/uL (4.4-10.8)
[2020-08-08 06:22] LABS: Potassium 3.7 mmol/L (3.5-5.1)
[2020-08-08] MEDS: CEPHALEXIN 250 MG CAP PO SCH ×4 (06:22→21:46)
[2020-08-08] MEDS: ACCU-CHEK COMFORT CURVE STRIP VI SCH ×4 (06:22→21:53)
[2020-08-08 06:25] LABS: Red Cell Distribution Width 20.1 % (11.8-14.3)
[2020-08-08 06:26] LABS: BUN/Creatinine Ratio 71.4; Calcium 8.7 mg/dL (8.5-10.1)
[2020-08-08] MEDS: InsuLIN REG 1unit/0.01ml Soln (100units/ml) SC SCH ×4 (06:26→21:52)
[2020-08-08 09:00] VITALS: BP 125/68
[2020-08-08] MEDS: SODIUM CHLOR 0.9% PF (SALINE LOCK) 10ML VIAL/SYR IV SCH ×2 (10:00→22:00)
[2020-08-08] MEDS: PANTOPRAZOLE 40 MG/10 ML VIAL INJ IV SCH ×2 (11:20→21:45)
[2020-08-08] MEDS: APIXABAN 5 MG TAB PO SCH ×2 (11:20→21:45)
[2020-08-08] MEDS: LINEZOLID 600MG TABLET PO SCH ×2 (11:21→21:46)
[2020-08-08] MEDS: amLODIPine BESYLATE 5 MG TAB PO SCH (11:21)
[2020-08-08] MEDS: CHOLECALCIFEROL (VITD3) 1,000UNIT=25mCg TAB PO SCH (11:21)
[2020-08-08 13:00] VITALS: BP 126/56
[2020-08-08 17:00] VITALS: BP 126/77
[2020-08-08] MEDS: INSULIN LANTUS (GLARGINE) 1 /0.01ml (100units/ml) SC SCH (21:53)
[2020-08-08 22:27] VITALS: BP 111/76
[2020-08-09] MEDS: MORPHINE SULF INJ 2 MG/ML SYRINGE 1ML IV PRN ×3 (04:54→15:43)
[2020-08-09 04:55] VITALS: BP 98/74
[2020-08-09] MEDS: InsuLIN REG 1unit/0.01ml Soln (100units/ml) SC SCH ×4 (06:03→21:54)
[2020-08-09] MEDS: CEPHALEXIN 250 MG CAP PO SCH ×4 (06:07→21:56)
[2020-08-09] MEDS: ACCU-CHEK COMFORT CURVE STRIP VI SCH ×4 (07:14→21:56)
[2020-08-09 08:00] VITALS: BP 135/72
[2020-08-09] MEDS: SODIUM CHLOR 0.9% PF (SALINE LOCK) 10ML VIAL/SYR IV SCH (10:00)
[2020-08-09] MEDS: PANTOPRAZOLE 40 MG/10 ML VIAL INJ IV SCH ×2 (10:47→21:55)
[2020-08-09] MEDS: APIXABAN 5 MG TAB PO SCH ×2 (10:47→21:56)
[2020-08-09] MEDS: LINEZOLID 600MG TABLET PO SCH ×2 (10:48→21:56)
[2020-08-09] MEDS: amLODIPine BESYLATE 5 MG TAB PO SCH (10:48)
[2020-08-09] MEDS: CHOLECALCIFEROL (VITD3) 1,000UNIT=25mCg TAB PO SCH (10:48)
[2020-08-09 12:00] VITALS: BP 139/78
[2020-08-09 16:00] VITALS: BP 123/66
[2020-08-09] MEDS: INSULIN LANTUS (GLARGINE) 1 /0.01ml (100units/ml) SC SCH (21:55)
[2020-08-09 23:03] VITALS: BP 131/70
[2020-08-10] MEDS: MORPHINE SULF INJ 2 MG/ML SYRINGE 1ML IV PRN (00:05)
[2020-08-10 04:51] VITALS: BP 105/61
[2020-08-10] MEDS: CEPHALEXIN 250 MG CAP PO SCH ×4 (05:44→22:08)
[2020-08-10] MEDS: InsuLIN REG 1unit/0.01ml Soln (100units/ml) SC SCH ×4 (05:45→22:00)
[2020-08-10] MEDS: ACCU-CHEK COMFORT CURVE STRIP VI SCH ×4 (05:49→22:00)
[2020-08-10 08:30] VITALS: BP 119/58
[2020-08-10] MEDS: CHOLECALCIFEROL (VITD3) 1,000UNIT=25mCg TAB PO SCH (10:00)
[2020-08-10] MEDS: PANTOPRAZOLE 40 MG/10 ML VIAL INJ IV SCH ×2 (10:07→22:08)
[2020-08-10] MEDS: amLODIPine BESYLATE 5 MG TAB PO SCH (10:08)
[2020-08-10] MEDS: APIXABAN 5 MG TAB PO SCH ×2 (10:08→22:08)
[2020-08-10] MEDS: LINEZOLID 600MG TABLET PO SCH ×2 (10:09→22:00)
[2020-08-10 12:30] VITALS: BP 137/64
[2020-08-10 17:00] VITALS: BP 126/66
[2020-08-10 22:00] VITALS: BP 138/90
[2020-08-10] MEDS: INSULIN LANTUS (GLARGINE) 1 /0.01ml (100units/ml) SC SCH (22:00)
[2020-08-11 05:00] VITALS: BP 121/67
[2020-08-11 06:07] LABS: Basophils # (auto) 0 10 ^3/uL (0-0.2); Basophils % (auto) 0.5 % (0.0-2.0); Eosinophils # (auto) 0.2 10 ^3/uL (0-0.8); Hematocrit 37.3 % (36.0-46.0); Hemoglobin 12.3 g/dL (12.2-16.2); Lymphocytes # (auto) 3.5 10 ^3/uL (0.4-5.4); Lymphocytes % (auto) 40.1 % (10.0-50.0); Mean Corpuscular Hgb Conc. 33.1 g/dL (32.0-36.0); Mean Corpuscular Volume 81.7 fL (80.0-100.0); Monocytes # (auto) 0.7 10 ^3/uL (0-1.3); Monocytes % (auto) 8.3 % (0.0-12.0); Neutrophils # (auto) 4.3 10 ^3/uL (1.6-8.6); Neutrophils % (auto) 49.1 % (37.0-80.0); Nucleated Red Blood Cells % 0.1 %; Platelet Count (auto) 283 10^3/uL (140-450); Red Blood Cells 4.57 10^6/uL (4.0-5.20); Red Cell Distribution Width 19.7 % (11.8-14.3); White Blood Cell 8.7 10^3/uL (4.4-10.8)
[2020-08-11] MEDS: CEPHALEXIN 250 MG CAP PO SCH ×4 (06:29→23:00)
[2020-08-11 06:31] LABS: Potassium 3.3 mmol/L (3.5-5.1)
[2020-08-11 06:36] LABS: BUN/Creatinine Ratio 67.9
[2020-08-11] MEDS: InsuLIN REG 1unit/0.01ml Soln (100units/ml) SC SCH ×4 (06:46→23:00)
[2020-08-11] MEDS: ACCU-CHEK COMFORT CURVE STRIP VI SCH ×4 (06:47→23:00)
[2020-08-11 08:30] VITALS: BP 126/72
[2020-08-11] MEDS: amLODIPine BESYLATE 5 MG TAB PO SCH (09:40)
[2020-08-11] MEDS: APIXABAN 5 MG TAB PO SCH ×2 (09:40→23:00)
[2020-08-11] MEDS: LINEZOLID 600MG TABLET PO SCH ×2 (09:41→23:00)
[2020-08-11] MEDS: CHOLECALCIFEROL (VITD3) 1,000UNIT=25mCg TAB PO SCH (09:41)
[2020-08-11] MEDS: MORPHINE SULF INJ 2 MG/ML SYRINGE 1ML IV PRN ×2 (11:42→23:30)
[2020-08-11 12:30] VITALS: BP 114/75
[2020-08-11 15:19] LABS: INR 1.03 (0.9-1.15); Partial Thromboplastin Time 34.4 sec (23.0-31.2)
[2020-08-11 16:45] VITALS: BP 127/68
[2020-08-11 20:00] VITALS: BP 122/76
[2020-08-11] MEDS ORDERED: LORazepam 2MG/ML-1ML VIAL IV PRN (20:45)
[2020-08-11 22:40] LABS: Folate (Folic Acid) 12.35 ng/mL (5.38-24)
[2020-08-11] MEDS: INSULIN LANTUS (GLARGINE) 1 /0.01ml (100units/ml) SC SCH (23:00)
[2020-08-12] MEDS ORDERED: TEMAZEPAM 15 MG CAP PEG ONE (02:30)
[2020-08-12] MEDS ORDERED: diphenhdrAMINE HCL 25 MG CAP PO ONE (02:30)
[2020-08-12 05:17] VITALS: BP 136/80
[2020-08-12 05:41] LABS: Basophils # (auto) 0 10 ^3/uL (0-0.2); Basophils % (auto) 0.4 % (0.0-2.0); Eosinophils # (auto) 0.1 10 ^3/uL (0-0.8); Eosinophils % (auto) 1.3 % (0.0-7.0); Hematocrit 34.6 % (36.0-46.0); Hemoglobin 11.5 g/dL (12.2-16.2); Lymphocytes # (auto) 3.2 10 ^3/uL (0.4-5.4); Lymphocytes % (auto) 32.4 % (10.0-50.0); Mean Corpuscular Hemoglobin 27.2 pg (28.0-32.0); Mean Corpuscular Hgb Conc. 33.3 g/dL (32.0-36.0); Mean Corpuscular Volume 81.6 fL (80.0-100.0); Monocytes # (auto) 0.7 10 ^3/uL (0-1.3); Monocytes % (auto) 7.3 % (0.0-12.0); Neutrophils # (auto) 5.7 10 ^3/uL (1.6-8.6); Neutrophils % (auto) 58.6 % (37.0-80.0); Nucleated Red Blood Cells % 0.1 %; Platelet Count (auto) 307 10^3/uL (140-450); Red Blood Cells 4.24 10^6/uL (4.0-5.20); Red Cell Distribution Width 19.6 % (11.8-14.3); White Blood Cell 9.8 10^3/uL (4.4-10.8)
[2020-08-12 06:13] LABS: Calcium 8.3 mg/dL (8.5-10.1); Potassium 3.3 mmol/L (3.5-5.1)
[2020-08-12] MEDS: ACCU-CHEK COMFORT CURVE STRIP VI SCH ×4 (07:15→21:55)
[2020-08-12] MEDS: CEPHALEXIN 250 MG CAP PO SCH ×4 (07:15→21:17)
[2020-08-12] MEDS: InsuLIN REG 1unit/0.01ml Soln (100units/ml) SC SCH ×4 (07:16→21:54)
[2020-08-12] MEDS: MORPHINE SULF INJ 2 MG/ML SYRINGE 1ML IV PRN ×2 (08:00→20:22)
[2020-08-12 09:00] VITALS: BP 141/79
[2020-08-12 09:41] VITALS: BP 136/80
[2020-08-12] MEDS: LINEZOLID 600MG TABLET PO SCH ×2 (10:00→21:16)
[2020-08-12] MEDS: CHOLECALCIFEROL (VITD3) 1,000UNIT=25mCg TAB PO SCH (10:07)
[2020-08-12] MEDS: APIXABAN 5 MG TAB PO SCH ×2 (10:07→21:17)
[2020-08-12] MEDS: amLODIPine BESYLATE 5 MG TAB PO SCH (10:07)
[2020-08-12] MEDS: diphenhdrAMINE HCL 50 MG/1 ML VL IV PRN ×2 (12:30→18:00)
[2020-08-12 13:00] VITALS: BP 152/80
[2020-08-12 16:47] VITALS: BP 122/67
[2020-08-12] MEDS: NYSTATIN TOPICAL POWDER 15GM TOP SCH (21:18)
[2020-08-12] MEDS: INSULIN LANTUS (GLARGINE) 1 /0.01ml (100units/ml) SC SCH (21:55)
[2020-08-12 22:00] VITALS: BP 108/41
[2020-08-13] MEDS: diphenhdrAMINE HCL 50 MG/1 ML VL IV PRN (04:11)
[2020-08-13 05:00] VITALS: BP 115/58
[2020-08-13] MEDS: CEPHALEXIN 250 MG CAP PO SCH ×4 (05:26→22:44)
[2020-08-13 05:48] LABS: Basophils # (auto) 0.1 10 ^3/uL (0-0.2); Basophils % (auto) 1.2 % (0.0-2.0); Eosinophils # (auto) 0.2 10 ^3/uL (0-0.8); Eosinophils % (auto) 1.8 % (0.0-7.0); Hematocrit 36.6 % (36.0-46.0); Lymphocytes # (auto) 3.7 10 ^3/uL (0.4-5.4); Lymphocytes % (auto) 37.5 % (10.0-50.0); Mean Corpuscular Hemoglobin 26.5 pg (28.0-32.0); Mean Corpuscular Hgb Conc. 32.8 g/dL (32.0-36.0); Monocytes # (auto) 0.8 10 ^3/uL (0-1.3); Monocytes % (auto) 7.9 % (0.0-12.0); Neutrophils # (auto) 5.1 10 ^3/uL (1.6-8.6); Neutrophils % (auto) 51.6 % (37.0-80.0); Nucleated Red Blood Cells % 0.1 %; Platelet Count (auto) 327 10^3/uL (140-450); Red Blood Cells 4.51 10^6/uL (4.0-5.20); Red Cell Distribution Width 19.5 % (11.8-14.3); White Blood Cell 9.8 10^3/uL (4.4-10.8)
[2020-08-13 06:07] LABS: INR 1.03 (0.9-1.15); Partial Thromboplastin Time 33.8 sec (23.0-31.2)
[2020-08-13 06:08] LABS: Potassium 3.3 mmol/L (3.5-5.1)
[2020-08-13 06:14] LABS: BUN/Creatinine Ratio 63.3
[2020-08-13] MEDS: ACCU-CHEK COMFORT CURVE STRIP VI SCH ×4 (06:47→22:45)
[2020-08-13] MEDS: InsuLIN REG 1unit/0.01ml Soln (100units/ml) SC SCH ×4 (06:48→22:52)
[2020-08-13] MEDS ORDERED: levoFLOXacin 500MG 100 ML IV ONE (08:45)
[2020-08-13 09:00] VITALS: BP 127/66
[2020-08-13] MEDS ORDERED: MIDAZOLAM HCL 1MG/1ML-2 ML VIAL ONE (09:23)
[2020-08-13] MEDS ORDERED: MEPERIDINE HCL (25 MG/ML) 1ML VIAL ONE (09:23)
[2020-08-13] MEDS ORDERED: fentaNYL CITRATE 100 MCG/2 ML VL ONE (09:23)
[2020-08-13] MEDS ORDERED: KETAMINE HCL 10 ML ONE (09:24)
[2020-08-13] MEDS ORDERED: PROPOFOL 10 MG/ML 20 ML IV ONE (09:50)
[2020-08-13] MEDS ORDERED: DexAMETHasone SOD PHOS 10MG/1ML VIAL INJ ONE (09:50)
[2020-08-13] MEDS ORDERED: hydrALAZINE HCL 20 MG/ML VL IV PRN (10:15)
[2020-08-13] MEDS ORDERED: ONDANSETRON HCL 4 MG/2 ML VIAL IV PRN (10:15)
[2020-08-13] MEDS ORDERED: MORPHINE SULFATE 4 MG/ML SYR/VIAL IV PRN (10:15)
[2020-08-13] MEDS ORDERED: MIDAZOLAM HCL 1MG/1ML-2 ML VIAL IV PRN (10:15)
[2020-08-13] MEDS ORDERED: LABETALOL HCL 5 MG/ML 4ML SYRINGE IV PRN (10:15)
[2020-08-13] MEDS ORDERED: ACCU-CHEK COMFORT CURVE STRIP VI ONE (10:15)
[2020-08-13] MEDS ORDERED: ePHEDrine SULFATE 50 MG/ML AMP IV PRN (10:15)
[2020-08-13 13:00] VITALS: BP 129/74
[2020-08-13] MEDS: CHOLECALCIFEROL (VITD3) 1,000UNIT=25mCg TAB PO SCH (13:35)
[2020-08-13] MEDS: LINEZOLID 600MG TABLET PO SCH ×2 (13:35→22:44)
[2020-08-13] MEDS: APIXABAN 5 MG TAB PO SCH ×2 (13:36→22:44)
[2020-08-13] MEDS: amLODIPine BESYLATE 5 MG TAB PO SCH (13:37)
[2020-08-13] MEDS: NYSTATIN TOPICAL POWDER 15GM TOP SCH ×2 (13:42→22:45)
[2020-08-13 16:42] VITALS: BP 125/74
[2020-08-13] MEDS: INSULIN LANTUS (GLARGINE) 1 /0.01ml (100units/ml) SC SCH (22:53)
[2020-08-14 05:00] VITALS: BP 141/70
[2020-08-14 06:06] LABS: Basophils # (auto) 0.1 10 ^3/uL (0-0.2); Basophils % (auto) 0.8 % (0.0-2.0); Hemoglobin 10.6 g/dL (12.2-16.2); Neutrophils # (auto) 6.4 10 ^3/uL (1.6-8.6); Neutrophils % (auto) 55.9 % (37.0-80.0); White Blood Cell 11.4 10^3/uL (4.4-10.8)
[2020-08-14 06:08] LABS: Eosinophils # (auto) 0 10 ^3/uL (0-0.8); Eosinophils % (auto) 0.2 % (0.0-7.0); Lymphocytes # (auto) 4.2 10 ^3/uL (0.4-5.4); Lymphocytes % (auto) 36.5 % (10.0-50.0); Mean Corpuscular Hemoglobin 27.2 pg (28.0-32.0); Mean Corpuscular Hgb Conc. 33.2 g/dL (32.0-36.0); Mean Corpuscular Volume 81.9 fL (80.0-100.0); Monocytes # (auto) 0.8 10 ^3/uL (0-1.3); Monocytes % (auto) 6.6 % (0.0-12.0); Nucleated Red Blood Cells % 0.1 %; Platelet Count (auto) 350 10^3/uL (140-450); Red Blood Cells 3.91 10^6/uL (4.0-5.20); Red Cell Distribution Width 19.1 % (11.8-14.3)
[2020-08-14 06:32] LABS: Potassium 3.6 mmol/L (3.5-5.1)
[2020-08-14] MEDS: CEPHALEXIN 250 MG CAP PO SCH ×4 (06:38→22:42)
[2020-08-14] MEDS: InsuLIN REG 1unit/0.01ml Soln (100units/ml) SC SCH ×4 (06:39→22:00)
[2020-08-14] MEDS: ACCU-CHEK COMFORT CURVE STRIP VI SCH ×4 (06:42→22:00)
[2020-08-14 09:00] VITALS: BP 131/71
[2020-08-14] MEDS: APIXABAN 5 MG TAB PO SCH ×2 (10:15→22:42)
[2020-08-14] MEDS: amLODIPine BESYLATE 5 MG TAB PO SCH (10:17)
[2020-08-14] MEDS: CHOLECALCIFEROL (VITD3) 1,000UNIT=25mCg TAB PO SCH (10:17)
[2020-08-14] MEDS: LINEZOLID 600MG TABLET PO SCH ×2 (10:17→22:43)
[2020-08-14] MEDS: MORPHINE SULF INJ 2 MG/ML SYRINGE 1ML IV PRN (10:19)
[2020-08-14] MEDS: NYSTATIN TOPICAL POWDER 15GM TOP SCH ×2 (10:54→22:43)
[2020-08-14 17:00] VITALS: BP 118/65
[2020-08-14 21:00] VITALS: BP 117/58
[2020-08-14] MEDS: INSULIN LANTUS (GLARGINE) 1 /0.01ml (100units/ml) SC SCH (22:53)
[2020-08-15 05:00] VITALS: BP 132/64
[2020-08-15 06:03] LABS: Basophils # (auto) 0.1 10 ^3/uL (0-0.2); Eosinophils # (auto) 0.1 10 ^3/uL (0-0.8); Monocytes # (auto) 0.6 10 ^3/uL (0-1.3); Nucleated Red Blood Cells % 0.1 %; Red Cell Distribution Width 19.1 % (11.8-14.3)
[2020-08-15 06:04] LABS: Basophils % (auto) 0.8 % (0.0-2.0); Eosinophils % (auto) 1.1 % (0.0-7.0); Hematocrit 32.5 % (36.0-46.0); Hemoglobin 10.7 g/dL (12.2-16.2); Lymphocytes # (auto) 2.7 10 ^3/uL (0.4-5.4); Lymphocytes % (auto) 28.9 % (10.0-50.0); Mean Corpuscular Hemoglobin 26.7 pg (28.0-32.0); Mean Corpuscular Hgb Conc. 33.1 g/dL (32.0-36.0); Mean Corpuscular Volume 80.6 fL (80.0-100.0); Monocytes % (auto) 6.3 % (0.0-12.0); Neutrophils # (auto) 5.9 10 ^3/uL (1.6-8.6); Neutrophils % (auto) 62.9 % (37.0-80.0); Platelet Count (auto) 362 10^3/uL (140-450); Red Blood Cells 4.03 10^6/uL (4.0-5.20); White Blood Cell 9.5 10^3/uL (4.4-10.8)
[2020-08-15] MEDS: CEPHALEXIN 250 MG CAP PO SCH ×4 (06:25→23:09)
[2020-08-15 06:26] LABS: Potassium 3.5 mmol/L (3.5-5.1)
[2020-08-15] MEDS: InsuLIN REG 1unit/0.01ml Soln (100units/ml) SC SCH ×4 (06:27→23:10)
[2020-08-15] MEDS: ACCU-CHEK COMFORT CURVE STRIP VI SCH ×4 (06:28→23:11)
[2020-08-15 06:34] LABS: BUN/Creatinine Ratio 38.3; Calcium 8.7 mg/dL (8.5-10.1)
[2020-08-15 08:49] VITALS: BP 110/67
[2020-08-15] MEDS: CHOLECALCIFEROL (VITD3) 1,000UNIT=25mCg TAB PO SCH (09:44)
[2020-08-15] MEDS: amLODIPine BESYLATE 5 MG TAB PO SCH (09:44)
[2020-08-15] MEDS: APIXABAN 5 MG TAB PO SCH ×2 (09:44→23:08)
[2020-08-15] MEDS: NYSTATIN TOPICAL POWDER 15GM TOP SCH ×2 (09:45→23:10)
[2020-08-15] MEDS: diphenhdrAMINE HCL 50 MG/1 ML VL IV PRN (11:11)
[2020-08-15] MEDS: MORPHINE SULF INJ 2 MG/ML SYRINGE 1ML IV PRN (11:11)
[2020-08-15 13:00] VITALS: BP 138/74
[2020-08-15] MEDS: LINEZOLID 600MG TABLET PO SCH ×2 (13:09→23:09)
[2020-08-15] MEDS ORDERED: HYDROcodone-ACET 5/325MG TAB PO PRN (13:15)
[2020-08-15 17:00] VITALS: BP 115/70
[2020-08-15] MEDS: HYDROcodone-ACET 5/325MG TAB PO PRN ×2 (17:14→23:50)
[2020-08-15] MEDS: LORazepam 0.5 MG TAB PO PRN ×2 (17:15→23:11)
[2020-08-15 22:00] VITALS: BP 106/67
[2020-08-15] MEDS: INSULIN LANTUS (GLARGINE) 1 /0.01ml (100units/ml) SC SCH (23:10)
[2020-08-16 05:00] VITALS: BP 100/59
[2020-08-16] MEDS: CEPHALEXIN 250 MG CAP PO SCH ×4 (06:12→21:59)
[2020-08-16] MEDS: ACCU-CHEK COMFORT CURVE STRIP VI SCH ×4 (06:13→22:00)
[2020-08-16] MEDS: InsuLIN REG 1unit/0.01ml Soln (100units/ml) SC SCH ×4 (06:13→22:02)
[2020-08-16] MEDS: HYDROcodone-ACET 5/325MG TAB PO PRN ×2 (06:14→12:31)
[2020-08-16 09:00] VITALS: BP 131/74
[2020-08-16] MEDS: NYSTATIN TOPICAL POWDER 15GM TOP SCH ×2 (10:00→22:00)
[2020-08-16] MEDS: APIXABAN 5 MG TAB PO SCH ×2 (11:04→21:58)
[2020-08-16] MEDS: LINEZOLID 600MG TABLET PO SCH ×2 (11:05→21:59)
[2020-08-16] MEDS: amLODIPine BESYLATE 5 MG TAB PO SCH (11:05)
[2020-08-16] MEDS: CHOLECALCIFEROL (VITD3) 1,000UNIT=25mCg TAB PO SCH (11:05)
[2020-08-16 13:00] VITALS: BP 142/98
[2020-08-16] MEDS ORDERED: Glucerna 1.2 Cal 1Liter BOTTLE GT SCH (15:30)
[2020-08-16 17:00] VITALS: BP 119/73
[2020-08-16] MEDS ORDERED: LORazepam 0.5 MG TAB PO PRN (20:00)
[2020-08-16] MEDS: INSULIN LANTUS (GLARGINE) 1 /0.01ml (100units/ml) SC SCH (22:01)
[2020-08-17] MEDS: HYDROcodone-ACET 5/325MG TAB PO PRN (02:14)
[2020-08-17 05:00] VITALS: BP 97/48
[2020-08-17] MEDS: InsuLIN REG 1unit/0.01ml Soln (100units/ml) SC SCH ×4 (05:57→21:32)
[2020-08-17] MEDS: ACCU-CHEK COMFORT CURVE STRIP VI SCH ×4 (05:57→21:34)
[2020-08-17] MEDS: CEPHALEXIN 250 MG CAP PO SCH ×4 (05:57→21:31)
[2020-08-17 08:40] VITALS: BP 139/86
[2020-08-17] MEDS: APIXABAN 5 MG TAB PO SCH ×2 (09:52→21:37)
[2020-08-17] MEDS: amLODIPine BESYLATE 5 MG TAB PO SCH (09:52)
[2020-08-17] MEDS: LINEZOLID 600MG TABLET PO SCH ×2 (09:52→21:31)
[2020-08-17] MEDS: CHOLECALCIFEROL (VITD3) 1,000UNIT=25mCg TAB PO SCH (09:52)
[2020-08-17] MEDS: NYSTATIN TOPICAL POWDER 15GM TOP SCH ×2 (09:54→21:34)
[2020-08-17 13:00] VITALS: BP 119/52
[2020-08-17] MEDS ORDERED: GASTROGRAFIN 30 ML SOL ONE (14:20)
[2020-08-17 17:00] VITALS: BP 139/70
[2020-08-17] MEDS: SOD CHL 0.45% 1,000 ML IV SCH (19:00)
[2020-08-17] MEDS: INSULIN LANTUS (GLARGINE) 1 /0.01ml (100units/ml) SC SCH (21:33)
[2020-08-17 22:13] VITALS: BP 121/51
[2020-08-17] MEDS: LORazepam 2MG/ML-1ML VIAL IV PRN (23:21)
[2020-08-18 05:17] VITALS: BP 124/69
[2020-08-18] MEDS: CEPHALEXIN 250 MG CAP PO SCH (05:19)
[2020-08-18] MEDS: SOD CHL 0.45% 1,000 ML IV SCH ×2 (06:00→15:00)
[2020-08-18] MEDS: ACCU-CHEK COMFORT CURVE STRIP VI SCH ×3 (06:06→17:11)
[2020-08-18] MEDS: InsuLIN REG 1unit/0.01ml Soln (100units/ml) SC SCH ×3 (06:06→17:00)
[2020-08-18 06:45] LABS: Basophils # (auto) 0 10 ^3/uL (0-0.2); Basophils % (auto) 0.3 % (0.0-2.0); Eosinophils # (auto) 0.2 10 ^3/uL (0-0.8); Eosinophils % (auto) 2.7 % (0.0-7.0); Hematocrit 34.7 % (36.0-46.0); Hemoglobin 11.5 g/dL (12.2-16.2); Lymphocytes # (auto) 3.3 10 ^3/uL (0.4-5.4); Lymphocytes % (auto) 42.5 % (10.0-50.0); Mean Corpuscular Hemoglobin 26.9 pg (28.0-32.0); Mean Corpuscular Volume 81.5 fL (80.0-100.0); Monocytes # (auto) 0.6 10 ^3/uL (0-1.3); Monocytes % (auto) 7.2 % (0.0-12.0); Neutrophils # (auto) 3.7 10 ^3/uL (1.6-8.6); Neutrophils % (auto) 47.3 % (37.0-80.0); Nucleated Red Blood Cells % 0.4 %; Platelet Count (auto) 390 10^3/uL (140-450); Red Blood Cells 4.26 10^6/uL (4.0-5.20); Red Cell Distribution Width 19.2 % (11.8-14.3); White Blood Cell 7.7 10^3/uL (4.4-10.8)
[2020-08-18 06:46] LABS: Calcium 9.3 mg/dL (8.5-10.1); Potassium 3.1 mmol/L (3.5-5.1)
[2020-08-18 08:54] VITALS: BP 130/61
[2020-08-18] MEDS: amLODIPine BESYLATE 5 MG TAB PO SCH (09:39)
[2020-08-18] MEDS: APIXABAN 5 MG TAB PO SCH (09:39)
[2020-08-18] MEDS: NYSTATIN TOPICAL POWDER 15GM TOP SCH ×2 (09:40→21:44)
[2020-08-18] MEDS: LINEZOLID 600MG TABLET PO SCH (09:40)
[2020-08-18] MEDS ORDERED: ENOXAPARIN SOD 80 MG/0.8ML SYRINGE SC ONE (12:00)
[2020-08-18] MEDS: LORazepam 2MG/ML-1ML VIAL IV PRN (12:05)
[2020-08-18] MEDS ORDERED: TPN PER PHARMACY 500 ML IV SCH (12:45)
[2020-08-18 13:00] VITALS: BP 123/70
[2020-08-18 13:10] LABS: Albumin 2.7 g/dL (3.4-5.0); Magnesium 2.2 mg/dL (1.6-2.6)
[2020-08-18 13:14] LABS: Bilirubin, Direct 0.2 mg/dL (0-0.2); Bilirubin, Total 0.4 mg/dL (0.2-1.0); Phosphorus 3.7 mg/dL (2.5-4.90); Total Protein 6.9 g/dL (6.4-8.2)
[2020-08-18 16:35] VITALS: BP 129/73
[2020-08-18] MEDS: POTASSIUM CHL 20MEQ/100ML 100 ML IV SCH ×2 (17:17→19:15)
[2020-08-18] MEDS: MORPHINE SULF INJ 2 MG/ML SYRINGE 1ML IV PRN ×2 (17:59→21:00)
[2020-08-18] MEDS ORDERED: AMINO ACID INFUSION IN D10W 1,000 ML IV NR (20:00)
[2020-08-18] MEDS ORDERED: AMINO ACID INFUSION IN D10W 2,000 ML IV NR (20:00)
[2020-08-18] MEDS: ENOXAPARIN SOD 80 MG/0.8ML SYRINGE SC SCH (21:44)
[2020-08-18] MEDS: INSULIN LANTUS (GLARGINE) 1 /0.01ml (100units/ml) SC SCH (21:45)
[2020-08-18 22:00] VITALS: BP 135/61
[2020-08-18] MEDS ORDERED: POTASSIUM CHL 20MEQ/100ML 100 ML IV SCH (22:00)
[2020-08-19] MEDS ORDERED: DEXTROSE (50%) 50ML SYRG IV SCH
[2020-08-19] MEDS: ACCU-CHEK COMFORT CURVE STRIP VI SCH ×5 (00:03→21:46)
[2020-08-19] MEDS: LORazepam 2MG/ML-1ML VIAL IV PRN (00:26)
[2020-08-19] MEDS: SOD CHL 0.45% 1,000 ML IV SCH ×4 (00:33→19:59)
[2020-08-19 05:00] VITALS: BP 143/78
[2020-08-19] MEDS: InsuLIN REG 1unit/0.01ml Soln (100units/ml) SC SCH ×5 (06:00→21:46)
[2020-08-19 06:42] LABS: Albumin 2.6 g/dL (3.4-5.0); Calcium 8.6 mg/dL (8.5-10.1); Potassium 3.5 mmol/L (3.5-5.1)
[2020-08-19 06:48] LABS: BUN/Creatinine Ratio 32.4; Bilirubin, Total 0.4 mg/dL (0.2-1.0); Phosphorus 2.4 mg/dL (2.5-4.90); Pre Albumin 17.8 mg/dL (20.0-40.0); Total Protein 6.6 g/dL (6.4-8.2)
[2020-08-19 06:52] LABS: Basophils # (auto) 0 10 ^3/uL (0-0.2); Eosinophils # (auto) 0.1 10 ^3/uL (0-0.8); Mean Corpuscular Volume 80.2 fL (80.0-100.0); Monocytes # (auto) 0.4 10 ^3/uL (0-1.3); Nucleated Red Blood Cells % 0.4 %
[2020-08-19 06:54] LABS: Basophils % (auto) 0.5 % (0.0-2.0); Eosinophils % (auto) 1.3 % (0.0-7.0); Hematocrit 35.4 % (36.0-46.0); Hemoglobin 11.8 g/dL (12.2-16.2); Lymphocytes # (auto) 2.7 10 ^3/uL (0.4-5.4); Mean Corpuscular Hemoglobin 26.7 pg (28.0-32.0); Mean Corpuscular Hgb Conc. 33.3 g/dL (32.0-36.0); Monocytes % (auto) 5.8 % (0.0-12.0); Neutrophils # (auto) 3.4 10 ^3/uL (1.6-8.6); Neutrophils % (auto) 51.4 % (37.0-80.0); Platelet Count (auto) 411 10^3/uL (140-450); Red Blood Cells 4.41 10^6/uL (4.0-5.20); White Blood Cell 6.6 10^3/uL (4.4-10.8)
[2020-08-19 08:30] VITALS: BP 143/104
[2020-08-19] MEDS ORDERED: POTASSIUM PHOSPHATE 22 MEQ in SODIUM CHL 0.9% 100 ML IV ONE (09:00)
[2020-08-19] MEDS: NYSTATIN TOPICAL POWDER 15GM TOP SCH ×2 (10:00→21:47)
[2020-08-19] MEDS: amLODIPine BESYLATE 5 MG TAB PO SCH (10:19)
[2020-08-19] MEDS: ENOXAPARIN SOD 80 MG/0.8ML SYRINGE SC SCH (10:19)
[2020-08-19] MEDS: MORPHINE SULF INJ 2 MG/ML SYRINGE 1ML IV PRN (11:17)
[2020-08-19 13:00] VITALS: BP 141/77
[2020-08-19] MEDS ORDERED: Glucerna 1.2 Cal 1Liter BOTTLE GT SCH (13:15)
[2020-08-19] MEDS ORDERED: DEXTROSE (50%) 50ML SYRG IV PRN (13:30)
[2020-08-19 17:00] VITALS: BP 135/91
[2020-08-19] MEDS ORDERED: PPN PER PHARMACY IV NR ×10 (20:00)
[2020-08-19] MEDS: APIXABAN 5 MG TAB PO SCH (21:46)
[2020-08-19] MEDS: INSULIN LANTUS (GLARGINE) 1 /0.01ml (100units/ml) SC SCH (21:50)
[2020-08-19 22:00] VITALS: BP 138/75
[2020-08-20] MEDS: MORPHINE SULF INJ 2 MG/ML SYRINGE 1ML IV PRN ×2 (03:25→06:38)
[2020-08-20] MEDS: SOD CHL 0.45% 1,000 ML IV SCH (04:08)
[2020-08-20 04:51] VITALS: BP 132/75
[2020-08-20 06:20] LABS: Basophils # (auto) 0 10 ^3/uL (0-0.2); Basophils % (auto) 0.4 % (0.0-2.0); Eosinophils # (auto) 0.1 10 ^3/uL (0-0.8); Eosinophils % (auto) 1.1 % (0.0-7.0); Hematocrit 36.8 % (36.0-46.0); Hemoglobin 12.5 g/dL (12.2-16.2); Lymphocytes # (auto) 2.9 10 ^3/uL (0.4-5.4); Lymphocytes % (auto) 36.2 % (10.0-50.0); Mean Corpuscular Hgb Conc. 33.9 g/dL (32.0-36.0); Mean Corpuscular Volume 79.5 fL (80.0-100.0); Monocytes # (auto) 0.6 10 ^3/uL (0-1.3); Neutrophils # (auto) 4.5 10 ^3/uL (1.6-8.6); Neutrophils % (auto) 55.3 % (37.0-80.0); Nucleated Red Blood Cells % 0.3 %; Platelet Count (auto) 429 10^3/uL (140-450); Red Blood Cells 4.63 10^6/uL (4.0-5.20); White Blood Cell 8.1 10^3/uL (4.4-10.8)
[2020-08-20] MEDS: InsuLIN REG 1unit/0.01ml Soln (100units/ml) SC SCH ×4 (06:20→21:58)
[2020-08-20] MEDS: ACCU-CHEK COMFORT CURVE STRIP VI SCH ×4 (06:20→21:57)
[2020-08-20 06:43] LABS: BUN/Creatinine Ratio 28.6; Calcium 8.9 mg/dL (8.5-10.1); Potassium 3.1 mmol/L (3.5-5.1)
[2020-08-20 08:41] VITALS: BP 154/83
[2020-08-20] MEDS: APIXABAN 5 MG TAB PO SCH ×2 (10:00→21:57)
[2020-08-20] MEDS: amLODIPine BESYLATE 5 MG TAB PO SCH (10:00)
[2020-08-20] MEDS ORDERED: POTASSIUM CHL 20 Meq TABLET PO ONE (11:00)
[2020-08-20] MEDS ORDERED: Glucerna 1.2 Cal 1Liter BOTTLE PO SCH (11:00)
[2020-08-20] MEDS ORDERED: BARIUM SULFATE 98% 340 GM PWDR ONE (11:14)
[2020-08-20] MEDS ORDERED: EZ PAQUE SUSP 12OZ BTL ONE (11:14)
[2020-08-20] MEDS ORDERED: EZ-GAS II GRANULES (RADIOLOGY USE) PO ONE (11:17)
[2020-08-20] MEDS: NYSTATIN TOPICAL POWDER 15GM TOP SCH ×2 (11:54→21:57)
[2020-08-20 14:00] VITALS: BP 112/58
[2020-08-20 17:02] VITALS: BP 137/83
[2020-08-20] MEDS: LORazepam 2MG/ML-1ML VIAL IV PRN (18:43)
[2020-08-20 21:32] VITALS: BP 137/79
[2020-08-20] MEDS: INSULIN LANTUS (GLARGINE) 1 /0.01ml (100units/ml) SC SCH (21:58)
[2020-08-21] MEDS: MORPHINE SULF INJ 2 MG/ML SYRINGE 1ML IV PRN ×5 (00:43→20:22)
[2020-08-21] MEDS: SOD CHL 0.45% 1,000 ML IV SCH ×2 (05:19→22:04)
[2020-08-21] MEDS: ACCU-CHEK COMFORT CURVE STRIP VI SCH ×4 (06:07→22:02)
[2020-08-21 06:08] VITALS: BP 137/75
[2020-08-21] MEDS: InsuLIN REG 1unit/0.01ml Soln (100units/ml) SC SCH ×4 (06:14→22:21)
[2020-08-21 07:46] LABS: Basophils # (auto) 0 10 ^3/uL (0-0.2); Basophils % (auto) 0.4 % (0.0-2.0); Eosinophils % (auto) 1.9 % (0.0-7.0); Lymphocytes # (auto) 2.7 10 ^3/uL (0.4-5.4); Monocytes # (auto) 0.6 10 ^3/uL (0-1.3)
[2020-08-21 07:49] LABS: Eosinophils # (auto) 0.1 10 ^3/uL (0-0.8); Hematocrit 33.5 % (36.0-46.0); Hemoglobin 11.3 g/dL (12.2-16.2); Lymphocytes % (auto) 34.3 % (10.0-50.0); Mean Corpuscular Hemoglobin 27.3 pg (28.0-32.0); Mean Corpuscular Hgb Conc. 33.7 g/dL (32.0-36.0); Mean Corpuscular Volume 80.8 fL (80.0-100.0); Monocytes % (auto) 7.3 % (0.0-12.0); Neutrophils # (auto) 4.5 10 ^3/uL (1.6-8.6); Neutrophils % (auto) 56.1 % (37.0-80.0); Nucleated Red Blood Cells % 0.5 %; Platelet Count (auto) 361 10^3/uL (140-450); Red Blood Cells 4.14 10^6/uL (4.0-5.20); Red Cell Distribution Width 19.3 % (11.8-14.3)
[2020-08-21 08:01] LABS: Calcium 8.7 mg/dL (8.5-10.1); Potassium 3.2 mmol/L (3.5-5.1)
[2020-08-21 08:04] LABS: BUN/Creatinine Ratio 45.8
[2020-08-21 09:00] VITALS: BP 136/76
[2020-08-21] MEDS: NYSTATIN TOPICAL POWDER 15GM TOP SCH ×2 (10:00→22:03)
[2020-08-21] MEDS: APIXABAN 5 MG TAB PO SCH ×2 (10:53→22:04)
[2020-08-21] MEDS: amLODIPine BESYLATE 5 MG TAB PO SCH (10:54)
[2020-08-21] MEDS ORDERED: POTASSIUM EFFERVESENT TAB 25 MEQ PO ONE (11:30)
[2020-08-21 12:58] VITALS: BP 131/51
[2020-08-21 16:44] VITALS: BP 107/75
[2020-08-21 22:00] VITALS: BP 109/54
[2020-08-21] MEDS: INSULIN LANTUS (GLARGINE) 1 /0.01ml (100units/ml) SC SCH (22:22)
[2020-08-22] MEDS: MORPHINE SULF INJ 2 MG/ML SYRINGE 1ML IV PRN ×6 (03:46→20:18)
[2020-08-22 05:00] VITALS: BP 108/65
[2020-08-22] MEDS: ACCU-CHEK COMFORT CURVE STRIP VI SCH ×4 (06:28→22:00)
[2020-08-22] MEDS: InsuLIN REG 1unit/0.01ml Soln (100units/ml) SC SCH ×4 (06:31→22:58)
[2020-08-22 06:44] LABS: Basophils # (auto) 0 10 ^3/uL (0-0.2); Hemoglobin 10.6 g/dL (12.2-16.2); Lymphocytes # (auto) 2.6 10 ^3/uL (0.4-5.4); Mean Corpuscular Volume 79.7 fL (80.0-100.0); Monocytes # (auto) 0.5 10 ^3/uL (0-1.3); Neutrophils # (auto) 3.3 10 ^3/uL (1.6-8.6); Platelet Count (auto) 322 10^3/uL (140-450)
[2020-08-22 06:46] LABS: Basophils % (auto) 0.6 % (0.0-2.0); Eosinophils # (auto) 0.2 10 ^3/uL (0-0.8); Eosinophils % (auto) 2.4 % (0.0-7.0); Hematocrit 31.2 % (36.0-46.0); Lymphocytes % (auto) 39.4 % (10.0-50.0); Mean Corpuscular Hemoglobin 27.1 pg (28.0-32.0); Mean Corpuscular Hgb Conc. 33.9 g/dL (32.0-36.0); Monocytes % (auto) 7.6 % (0.0-12.0); Nucleated Red Blood Cells % 0.1 %; Red Blood Cells 3.92 10^6/uL (4.0-5.20); Red Cell Distribution Width 18.9 % (11.8-14.3); White Blood Cell 6.5 10^3/uL (4.4-10.8)
[2020-08-22 07:06] LABS: Calcium 8.2 mg/dL (8.5-10.1); Potassium 3.3 mmol/L (3.5-5.1)
[2020-08-22 07:10] LABS: BUN/Creatinine Ratio 29.6
[2020-08-22 08:43] VITALS: BP 131/76
[2020-08-22] MEDS: APIXABAN 5 MG TAB PO SCH ×2 (11:45→22:56)
[2020-08-22] MEDS: NYSTATIN TOPICAL POWDER 15GM TOP SCH ×2 (11:46→22:00)
[2020-08-22] MEDS: amLODIPine BESYLATE 5 MG TAB PO SCH (11:46)
[2020-08-22 13:00] VITALS: BP 120/69
[2020-08-22] MEDS: SOD CHL 0.45% 1,000 ML IV SCH (14:39)
[2020-08-22 17:17] VITALS: BP 129/74
[2020-08-22 22:00] VITALS: BP 136/71
[2020-08-22] MEDS: INSULIN LANTUS (GLARGINE) 1 /0.01ml (100units/ml) SC SCH (22:00)
[2020-08-23] MEDS: MORPHINE SULF INJ 2 MG/ML SYRINGE 1ML IV PRN ×6 (01:06→21:31)
[2020-08-23 05:00] VITALS: BP 115/66
[2020-08-23 05:41] LABS: Basophils # (auto) 0 10 ^3/uL (0-0.2); Basophils % (auto) 0.4 % (0.0-2.0); Eosinophils # (auto) 0.2 10 ^3/uL (0-0.8); Eosinophils % (auto) 2.8 % (0.0-7.0); Hematocrit 32.1 % (36.0-46.0); Hemoglobin 10.9 g/dL (12.2-16.2); Lymphocytes # (auto) 2.3 10 ^3/uL (0.4-5.4); Lymphocytes % (auto) 31.6 % (10.0-50.0); Mean Corpuscular Hemoglobin 27.2 pg (28.0-32.0); Monocytes # (auto) 0.5 10 ^3/uL (0-1.3); Monocytes % (auto) 7.4 % (0.0-12.0); Neutrophils # (auto) 4.2 10 ^3/uL (1.6-8.6); Neutrophils % (auto) 57.8 % (37.0-80.0); Platelet Count (auto) 306 10^3/uL (140-450); Red Blood Cells 4.02 10^6/uL (4.0-5.20); Red Cell Distribution Width 19.1 % (11.8-14.3); White Blood Cell 7.3 10^3/uL (4.4-10.8)
[2020-08-23] MEDS: SOD CHL 0.45% 1,000 ML IV SCH (05:52)
[2020-08-23 06:03] LABS: INR 0.97 (0.9-1.15)
[2020-08-23 06:08] LABS: Potassium 3.7 mmol/L (3.5-5.1)
[2020-08-23 06:21] LABS: Albumin 2.6 g/dL (3.4-5.0); BUN/Creatinine Ratio 30.8; Calcium 8.3 mg/dL (8.5-10.1); Magnesium 1.9 mg/dL (1.6-2.6)
[2020-08-23 06:26] LABS: Bilirubin, Total 0.3 mg/dL (0.2-1.0); Phosphorus 3.3 mg/dL (2.5-4.90); Total Protein 6.1 g/dL (6.4-8.2)
[2020-08-23] MEDS: ACCU-CHEK COMFORT CURVE STRIP VI SCH ×4 (06:40→21:32)
[2020-08-23] MEDS: InsuLIN REG 1unit/0.01ml Soln (100units/ml) SC SCH ×4 (06:42→21:55)
[2020-08-23] MEDS: LORazepam 2MG/ML-1ML VIAL IV PRN ×2 (08:21→18:29)
[2020-08-23 09:00] VITALS: BP 157/79
[2020-08-23] MEDS: APIXABAN 5 MG TAB PO SCH ×2 (09:45→21:31)
[2020-08-23] MEDS: amLODIPine BESYLATE 5 MG TAB PO SCH (09:47)
[2020-08-23] MEDS: NYSTATIN TOPICAL POWDER 15GM TOP SCH ×2 (09:50→21:32)
[2020-08-23 13:00] VITALS: BP 118/52
[2020-08-23 16:40] VITALS: BP 133/72
[2020-08-23 20:30] VITALS: BP 119/68
[2020-08-23] MEDS: INSULIN LANTUS (GLARGINE) 1 /0.01ml (100units/ml) SC SCH (21:55)
[2020-08-24] MEDS: SOD CHL 0.45% 1,000 ML IV SCH ×2 (01:12→14:42)
[2020-08-24] MEDS: MORPHINE SULF INJ 2 MG/ML SYRINGE 1ML IV PRN ×5 (01:12→22:04)
[2020-08-24] MEDS: LORazepam 2MG/ML-1ML VIAL IV PRN ×2 (03:10→11:09)
[2020-08-24 04:45] VITALS: BP 123/71
[2020-08-24 06:40] VITALS: BP 123/71
[2020-08-24] MEDS: ACCU-CHEK COMFORT CURVE STRIP VI SCH ×4 (06:42→21:55)
[2020-08-24] MEDS: InsuLIN REG 1unit/0.01ml Soln (100units/ml) SC SCH ×4 (06:42→22:04)
[2020-08-24] MEDS: HYDROcodone-ACET 5/325MG TAB PO PRN (08:24)
[2020-08-24 09:00] VITALS: BP 107/69
[2020-08-24] MEDS ORDERED: ALBUTEROL SULF 2.5 MG/0.5ML(0.5%) NEB SOLN NEB PRN ×2 (09:15→11:45)
[2020-08-24] MEDS ORDERED: methylPREDNISolone SOD SUCC 40 MG/ML VL IV ONE (11:30)
[2020-08-24] MEDS ORDERED: IPRATROPIUM BROM 0.5 MG/2.5ML INH SOL NEB PRN (11:45)
[2020-08-24] MEDS: APIXABAN 5 MG TAB PO SCH ×2 (12:08→21:55)
[2020-08-24] MEDS: amLODIPine BESYLATE 5 MG TAB PO SCH (12:08)
[2020-08-24] MEDS: NYSTATIN TOPICAL POWDER 15GM TOP SCH ×2 (12:09→21:55)
[2020-08-24 13:00] VITALS: BP 109/65
[2020-08-24 17:00] VITALS: BP 109/70
[2020-08-24] MEDS: methylPREDNISolone SOD SUCC 40 MG/ML VL IV SCH (21:55)
[2020-08-24 22:00] VITALS: BP 118/77
[2020-08-24] MEDS: INSULIN LANTUS (GLARGINE) 1 /0.01ml (100units/ml) SC SCH (22:01)
[2020-08-25] MEDS: MORPHINE SULF INJ 2 MG/ML SYRINGE 1ML IV PRN ×5 (03:14→19:39)
[2020-08-25] MEDS: SOD CHL 0.45% 1,000 ML IV SCH ×2 (04:39→22:06)
[2020-08-25 05:00] VITALS: BP 129/69
[2020-08-25] MEDS: ACCU-CHEK COMFORT CURVE STRIP VI SCH ×4 (06:15→22:00)
[2020-08-25] MEDS: InsuLIN REG 1unit/0.01ml Soln (100units/ml) SC SCH ×4 (06:16→22:00)
[2020-08-25] MEDS: LORazepam 2MG/ML-1ML VIAL IV PRN ×2 (07:04→15:37)
[2020-08-25 07:09] LABS: Basophils # (auto) 0 10 ^3/uL (0-0.2); Eosinophils # (auto) 0 10 ^3/uL (0-0.8); Eosinophils % (auto) 0.1 % (0.0-7.0)
[2020-08-25 07:11] LABS: Basophils % (auto) 0.2 % (0.0-2.0); Hematocrit 33.7 % (36.0-46.0); Lymphocytes # (auto) 1.5 10 ^3/uL (0.4-5.4); Lymphocytes % (auto) 24.9 % (10.0-50.0); Mean Corpuscular Hemoglobin 26.2 pg (28.0-32.0); Mean Corpuscular Hgb Conc. 32.7 g/dL (32.0-36.0); Mean Corpuscular Volume 80.3 fL (80.0-100.0); Monocytes # (auto) 0.2 10 ^3/uL (0-1.3); Monocytes % (auto) 2.5 % (0.0-12.0); Neutrophils # (auto) 4.4 10 ^3/uL (1.6-8.6); Neutrophils % (auto) 72.3 % (37.0-80.0); Platelet Count (auto) 348 10^3/uL (140-450); Red Cell Distribution Width 19.1 % (11.8-14.3); White Blood Cell 6.1 10^3/uL (4.4-10.8)
[2020-08-25 07:30] LABS: Calcium 9.1 mg/dL (8.5-10.1)
[2020-08-25 07:34] LABS: BUN/Creatinine Ratio 34.6
[2020-08-25 09:00] VITALS: BP 131/85
[2020-08-25] MEDS: methylPREDNISolone SOD SUCC 40 MG/ML VL IV SCH ×2 (09:05→22:00)
[2020-08-25] MEDS: APIXABAN 5 MG TAB PO SCH ×2 (09:06→22:00)
[2020-08-25] MEDS: amLODIPine BESYLATE 5 MG TAB PO SCH (09:10)
[2020-08-25] MEDS: NYSTATIN TOPICAL POWDER 15GM TOP SCH ×2 (09:13→22:00)
[2020-08-25] MEDS: HYDROcodone-ACET 5/325MG TAB PO PRN (12:34)
[2020-08-25 13:00] VITALS: BP 111/50
[2020-08-25 16:54] VITALS: BP 125/70
[2020-08-25 21:43] VITALS: BP 100/61
[2020-08-25] MEDS: INSULIN LANTUS (GLARGINE) 1 /0.01ml (100units/ml) SC SCH (22:00)
[2020-08-25] MEDS: QUEtiapine FUMARATE 25 MG TAB PO SCH (22:00)
[2020-08-26 05:27] VITALS: BP 100/53
[2020-08-26 06:20] LABS: Basophils # (auto) 0 10 ^3/uL (0-0.2); Basophils % (auto) 0.1 % (0.0-2.0); Eosinophils # (auto) 0 10 ^3/uL (0-0.8); Hemoglobin 10.2 g/dL (12.2-16.2); Lymphocytes # (auto) 1.4 10 ^3/uL (0.4-5.4); Lymphocytes % (auto) 20.1 % (10.0-50.0); Mean Corpuscular Hemoglobin 27.4 pg (28.0-32.0); Mean Corpuscular Hgb Conc. 34.1 g/dL (32.0-36.0); Mean Corpuscular Volume 80.3 fL (80.0-100.0); Monocytes # (auto) 0.2 10 ^3/uL (0-1.3); Monocytes % (auto) 2.3 % (0.0-12.0); Neutrophils # (auto) 5.5 10 ^3/uL (1.6-8.6); Neutrophils % (auto) 77.5 % (37.0-80.0); Platelet Count (auto) 287 10^3/uL (140-450); Red Blood Cells 3.73 10^6/uL (4.0-5.20); Red Cell Distribution Width 18.6 % (11.8-14.3); White Blood Cell 7.1 10^3/uL (4.4-10.8)
[2020-08-26] MEDS: ACCU-CHEK COMFORT CURVE STRIP VI SCH ×4 (06:28→22:00)
[2020-08-26 06:31] LABS: BUN/Creatinine Ratio 38.2; Calcium 9.2 mg/dL (8.5-10.1); Potassium 3.9 mmol/L (3.5-5.1)
[2020-08-26] MEDS: InsuLIN REG 1unit/0.01ml Soln (100units/ml) SC SCH ×4 (06:42→22:00)
[2020-08-26] MEDS: HYDROcodone-ACET 5/325MG TAB PO PRN ×3 (08:01→20:39)
[2020-08-26 08:37] VITALS: BP 113/62
[2020-08-26] MEDS: APIXABAN 5 MG TAB PO SCH ×2 (10:25→22:00)
[2020-08-26] MEDS: methylPREDNISolone SOD SUCC 40 MG/ML VL IV SCH (10:25)
[2020-08-26] MEDS: amLODIPine BESYLATE 5 MG TAB PO SCH (10:26)
[2020-08-26] MEDS: NYSTATIN TOPICAL POWDER 15GM TOP SCH ×2 (10:27→22:00)
[2020-08-26 12:46] VITALS: BP 138/63
[2020-08-26] MEDS: SOD CHL 0.45% 1,000 ML IV SCH (15:27)
[2020-08-26 16:24] VITALS: BP 122/68
[2020-08-26 22:00] VITALS: BP 125/59
[2020-08-26] MEDS: QUEtiapine FUMARATE 25 MG TAB PO SCH (22:00)
[2020-08-26] MEDS: INSULIN LANTUS (GLARGINE) 1 /0.01ml (100units/ml) SC SCH (22:00)
[2020-08-27] MEDS: HYDROcodone-ACET 5/325MG TAB PO PRN ×2 (02:26→08:30)
[2020-08-27 05:00] VITALS: BP 133/71
[2020-08-27] MEDS: ACCU-CHEK COMFORT CURVE STRIP VI SCH (06:35)
[2020-08-27] MEDS: InsuLIN REG 1unit/0.01ml Soln (100units/ml) SC SCH (06:36)
[2020-08-27] MEDS: SOD CHL 0.45% 1,000 ML IV SCH (08:16)
[2020-08-27 08:19] VITALS: BP 128/66
[2020-08-27 08:41] VITALS: BP 128/66
[2020-08-27] MEDS: APIXABAN 5 MG TAB PO SCH (10:06)
[2020-08-27] MEDS: amLODIPine BESYLATE 5 MG TAB PO SCH (10:06)
[2020-08-27] MEDS: NYSTATIN TOPICAL POWDER 15GM TOP SCH (10:07)
== END 2020-08-27 11:00 | DRG 3 ==
LOC: ER 14:39 → EDBD 14:39 → TELE 14:40 → DOU IN ICU 06-23 23:24 → TELE-EAST 07-27 15:29 → TELE-WESTW 08-04 14:06
PROVIDERS: ADMIT Nurse Practitioner; ATTEND Internal Medicine Pulmonary Disease
PROC: XW033E5 Introduction of Remdesivir Anti-infective into Peripheral Vein, Percutaneous Approach, New Technology Group 5 (ICD-10-PCS; 2020-06-16)
PROC: XW13325 Transfusion of Convalescent Plasma (Nonautologous) into Peripheral Vein, Percutaneous Approach, New Technology Group 5 (ICD-10-PCS; 2020-06-17)
PROC: 5A1955Z Respiratory Ventilation, Greater than 96 Consecutive Hours (ICD-10-PCS; principal; 2020-06-18)
PROC: 0BH17EZ Insertion of Endotracheal Airway into Trachea, Via Natural or Artificial Opening (ICD-10-PCS; 2020-06-18)
PROC: 0B110F4 Bypass Trachea to Cutaneous with Tracheostomy Device, Open Approach (ICD-10-PCS; 2020-07-03)
PROC: 0DH63UZ Insertion of Feeding Device into Stomach, Percutaneous Approach (ICD-10-PCS; 2020-07-03)
PROC: 02HV33Z Insertion of Infusion Device into Superior Vena Cava, Percutaneous Approach (ICD-10-PCS; 2020-07-09)
PROC: B548ZZA Ultrasonography of Superior Vena Cava, Guidance (ICD-10-PCS; 2020-07-09)
PROC: 30233N1 Transfusion of Nonautologous Red Blood Cells into Peripheral Vein, Percutaneous Approach (ICD-10-PCS; 2020-07-15)
PROC: 0H97XZZ Drainage of Abdomen Skin, External Approach (ICD-10-PCS; 2020-07-21)
PROC: 0HB7XZZ Excision of Abdomen Skin, External Approach (ICD-10-PCS; 2020-07-21)
PROC: 0BP1XDZ Removal of Intraluminal Device from Trachea, External Approach (ICD-10-PCS; 2020-07-25)
PROC: 05H933Z Insertion of Infusion Device into Right Brachial Vein, Percutaneous Approach (ICD-10-PCS; 2020-08-11)
PROC: B54MZZA Ultrasonography of Right Upper Extremity Veins, Guidance (ICD-10-PCS; 2020-08-11)
PROC: 0JB90ZZ Excision of Buttock Subcutaneous Tissue and Fascia, Open Approach (ICD-10-PCS; 2020-08-13)
DX: A41.89 Other specified sepsis (principal); I26.99 Other pulmonary embolism without acute cor pulmonale; U07.1 COVID-19; J96.01 Acute respiratory failure with hypoxia; J12.82 Pneumonia due to coronavirus disease 2019; J15.0 Pneumonia due to Klebsiella pneumoniae; L89.154 Pressure ulcer of sacral region, stage 4; G93.41 Metabolic encephalopathy; R65.21 Severe sepsis with septic shock; E43 Unspecified severe protein-calorie malnutrition; L02.211 Cutaneous abscess of abdominal wall; Z99.11 Dependence on respirator [ventilator] status; J98.11 Atelectasis; G93.1 Anoxic brain damage, not elsewhere classified; E87.1 Hypo-osmolality and hyponatremia; L03.311 Cellulitis of abdominal wall; K94.23 Gastrostomy malfunction; E11.65 Type 2 diabetes mellitus with hyperglycemia; K29.70 Gastritis, unspecified, without bleeding; E87.6 Hypokalemia; B95.2 Enterococcus as the cause of diseases classified elsewhere; Y83.8 Other surgical procedures as the cause of abnormal reaction of the patient, or of later complication, without mention of misadventure at the time of the procedure; Y82.8 Other medical devices associated with adverse incidents; D64.9 Anemia, unspecified; F17.200 Nicotine dependence, unspecified, uncomplicated; E87.5 Hyperkalemia; B96.5 Pseudomonas (aeruginosa) (mallei) (pseudomallei) as the cause of diseases classified elsewhere; I10 Essential (primary) hypertension; Z79.01 Long term (current) use of anticoagulants; Z83.3 Family history of diabetes mellitus; Z88.0 Allergy status to penicillin; Z79.899 Other long term (current) drug therapy; Y92.89 Other specified places as the place of occurrence of the external cause; Z68.23 Body mass index [BMI] 23.0-23.9, adult
CPT/HCPCS: 31720; 36415; 36569; 36600; 43246; 70450; 70551; 71045; 71260; 71275; 74018; 74176; 74177; 74220; 76700; 76705; 80048; 80053; 80076; 81001; 82010; 82040; 82306; 82550; 82607; 82728; 82746; 82805; 82962; 83036; 83605; 83615; 83735; 83880; 83930; 84100; 84132; 84443; 84478; 84484; 85007; 85014; 85018; 85025; 85027; 85379; 85610; 85652; 85730; 86141; 86850; 86900; 86901; 86920; 87040; 87070; 87075; 87076; 87077; 87081; 87086; 87186; 87205; 87426; 92507; 92610; 93005; 94002; 94003; 94640; 94660; 95819; 97110; 97116; 97163; 97530; 99291; A4565; A4605; C9113; G0378; J0330; J0696; J1100; J1815; J1956; J2001; J2250; J2704; J3480; J3490; J7060; J7131

== ENCOUNTER → 2022-03-02 | Outpatient (CLI) | payer MEDICARE, MEDICAID ==
[~2022-03-02] MED LIST changes: +APIX5TAB PO; +CHOL20007 PO; +FENO160T8 PO; +GEMF-19 PO; +GLIM4TAB42 PO; +INSU1INJ19 SC; +LIRA18IN2 SUBCUT; +LOSA100T33 PO
[2022-03-02 10:16] LABS: Albumin 3.6 g/dL (3.4-5.0); Calcium 8.8 mg/dL (8.5-10.1); Potassium 4.9 mmol/L (3.5-5.1)
[2022-03-02 10:19] LABS: BUN/Creatinine Ratio 22.8; Bilirubin, Total 0.4 mg/dL (0.2-1.0); Total Protein 7.1 g/dL (6.4-8.2)
== END | disposition home or self-care (01) ==
LOC: LAB 09:32
PROVIDERS: ATTEND Internal Medicine Endocrinology, Diabetes & Metabolism
DX: E11.65 Type 2 diabetes mellitus with hyperglycemia (principal)
CPT/HCPCS: 36415; 80053; 83036

== ENCOUNTER → 2022-04-12 | Outpatient (CLI) | payer OTHER, MEDICAID ==
[2022-04-12 10:04] LABS: Urine Bacteria FEW /hpf (None Seen); Urine Blood Negative /uL (Negative); Urine Specific Gravity 1.017 (1.001-1.035); Urine WBC 24 /hpf (0 - 5)
[2022-04-12 10:49] LABS: Albumin 3.7 g/dL (3.4-5.0); BUN/Creatinine Ratio 30.8; Bilirubin, Total 0.4 mg/dL (0.2-1.0); Calcium 9.6 mg/dL (8.5-10.1); Potassium 4.4 mmol/L (3.5-5.1); Total Protein 7.9 g/dL (6.4-8.2)
[2022-04-12 11:00] LABS: Micro Albumin 8.51 mg/L (0-30.0)
== END | disposition home or self-care (01) ==
LOC: LAB 09:34
PROVIDERS: ATTEND Internal Medicine
DX: I10 Essential (primary) hypertension (principal); E11.9 Type 2 diabetes mellitus without complications
CPT/HCPCS: 36415; 80053; 80061; 81001; 82043; 82570; 84300; 84439; 84443

== ENCOUNTER → 2022-04-25 | Outpatient (CLI) | payer OTHER, MEDICAID ==
[2022-04-25 13:04] LABS: Albumin 3.6 g/dL (3.4-5.0); Calcium 9.6 mg/dL (8.5-10.1); Potassium 4.2 mmol/L (3.5-5.1)
[2022-04-25 13:07] LABS: BUN/Creatinine Ratio 26.8; Bilirubin, Total 0.5 mg/dL (0.2-1.0); Total Protein 7.8 g/dL (6.4-8.2)
== END | disposition home or self-care (01) ==
LOC: LAB 08:29
PROVIDERS: ATTEND Internal Medicine
DX: I10 Essential (primary) hypertension (principal)
CPT/HCPCS: 36415; 80053

== ENCOUNTER → 2022-05-20 | Outpatient (CLI) | payer OTHER, MEDICAID ==
[~2022-05-20] MED LIST changes: +ALBUTEROL SULF 2.5 MG/0.5ML(0.5%) NEB SOLN ONE
== END | disposition home or self-care (01) ==
LOC: RT 05-19 11:02
PROVIDERS: ATTEND Internal Medicine Pulmonary Disease
DX: U09.9 Post COVID-19 condition, unspecified (principal); R06.00 Dyspnea, unspecified; R05.9 Cough, unspecified
CPT/HCPCS: 94060; 94727; 94729

== ENCOUNTER → 2022-05-31 | Outpatient (CLI) | payer OTHER, MEDICAID ==
[~2022-05-31] MED LIST changes: -ALBUTEROL SULF 2.5 MG/0.5ML(0.5%) NEB SOLN ONE
[2022-05-31 10:44] LABS: Calcium 9.1 mg/dL (8.5-10.1); Potassium 4.6 mmol/L (3.5-5.1)
[2022-05-31 10:46] LABS: BUN/Creatinine Ratio 24.2
== END | disposition home or self-care (01) ==
LOC: LAB 09:33
PROVIDERS: ATTEND Internal Medicine
DX: N17.9 Acute kidney failure, unspecified (principal)
CPT/HCPCS: 36415; 80048

== ENCOUNTER → 2022-06-22 | Outpatient (CLI) | payer OTHER, MEDICAID ==
[2022-06-22 09:34] LABS: Albumin 3.6 g/dL (3.4-5.0); Calcium 9.1 mg/dL (8.5-10.1); Potassium 4.7 mmol/L (3.5-5.1)
[2022-06-22 09:39] LABS: BUN/Creatinine Ratio 22.8; Bilirubin, Total 0.4 mg/dL (0.2-1.0); Total Protein 7.4 g/dL (6.4-8.2)
== END | disposition home or self-care (01) ==
LOC: LAB 08:37
PROVIDERS: ATTEND Internal Medicine Endocrinology, Diabetes & Metabolism
DX: E11.65 Type 2 diabetes mellitus with hyperglycemia (principal); E55.9 Vitamin D deficiency, unspecified
CPT/HCPCS: 36415; 80053; 80061; 82306; 83036

== ENCOUNTER → 2022-08-30 | Outpatient (CLI) | payer OTHER, MEDICAID ==
[2022-08-30 09:06] LABS: BUN/Creatinine Ratio 22.7 (10.0-20.0); Calcium 9.4 mg/dL (8.5-10.1)
== END | disposition home or self-care (01) ==
LOC: LAB 08:22
PROVIDERS: ATTEND Internal Medicine
DX: N18.2 Chronic kidney disease, stage 2 (mild) (principal)
CPT/HCPCS: 36415; 80048

== ENCOUNTER → 2022-09-30 | Outpatient (CLI) | payer OTHER, MEDICAID ==
[2022-09-30 09:29] LABS: Potassium 4.9 mmol/L (3.5-5.1)
[2022-09-30 09:38] LABS: BUN/Creatinine Ratio 24.4 (10.0-20.0); Bilirubin, Total 0.5 mg/dL (0.2-1.0); Calcium 9.7 mg/dL (8.5-10.1); Total Protein 8.6 g/dL (6.4-8.2)
== END | disposition home or self-care (01) ==
LOC: LAB 08:19
PROVIDERS: ATTEND Internal Medicine Endocrinology, Diabetes & Metabolism
DX: E11.65 Type 2 diabetes mellitus with hyperglycemia (principal)
CPT/HCPCS: 36415; 80053; 80061; 83036

== ENCOUNTER → 2022-12-08 | Outpatient (CLI) | payer OTHER, MEDICAID ==
[~2022-12-08] MED LIST changes: +FENO160T PO; -FENO160T8 PO; -GEMF-19 PO; +GEMF-66 PO
[2022-12-08 09:55] LABS: Potassium 4.1 mmol/L (3.5-5.1)
[2022-12-08 10:00] LABS: BUN/Creatinine Ratio 26.4 (10.0-20.0)
[2022-12-08 10:11] LABS: Micro Albumin 6.78 mg/L (0-30.0)
== END | disposition home or self-care (01) ==
LOC: LAB 09:15
PROVIDERS: ATTEND Internal Medicine
DX: I12.9 Hypertensive chronic kidney disease with stage 1 through stage 4 chronic kidney disease, or unspecified chronic kidney disease (principal); E11.22 Type 2 diabetes mellitus with diabetic chronic kidney disease; N18.31 Chronic kidney disease, stage 3a
CPT/HCPCS: 36415; 80048; 82043; 82570; 83036

== ENCOUNTER → 2023-01-18 | Outpatient (CLI) | payer OTHER, MEDICAID ==
[2023-01-18 10:06] LABS: Protein, Urine < 6.0 mg/dL (0.0-11.9); Urine Protein/Creatinine Ratio 0.07
[2023-01-18 10:16] LABS: Alanine Aminotransferase 16 U/L (7-40); Albumin 4.5 g/dL (3.2-4.8); Alkaline Phosphatase 123 U/L (46-116); Aspartate Aminotransferase 15 U/L (13-40); BUN/Creatinine Ratio 28.1 (10.0-20.0); Bilirubin, Total 0.5 mg/dL (0.2-1.0); Blood Urea Nitrogen 27 mg/dL (9-23); Calcium 9.6 mg/dL (8.5-10.1); Chloride 101 mmol/L (98-107); Glucose 180 mg/dL (74-106); Potassium 4.6 mmol/L (3.5-5.1); Sodium 137 mmol/L (136-145); Total Protein 7.7 g/dL (5.7-8.2)
== END | disposition home or self-care (01) ==
LOC: LAB 08:15
PROVIDERS: ATTEND Internal Medicine Endocrinology, Diabetes & Metabolism
DX: E11.65 Type 2 diabetes mellitus with hyperglycemia (principal)
CPT/HCPCS: 36415; 80053; 82043; 82570; 83036; 84156

== ENCOUNTER → 2023-02-15 | Outpatient (CLI) | payer OTHER, MEDICAID ==
[2023-02-15 09:09] LABS: Basophils # (auto) 0 10 ^3/uL (0-0.2); Eosinophils # (auto) 0.1 10 ^3/uL (0-0.8); Eosinophils % (auto) 1.5 % (0.0-7.0); Hemoglobin 12.6 g/dL (12.2-16.2); Lymphocytes # (auto) 1.7 10 ^3/uL (0.4-5.4); Mean Corpuscular Volume 76.2 fL (80.0-100.0); Monocytes # (auto) 0.5 10 ^3/uL (0-1.3)
[2023-02-15 09:11] LABS: Basophils % (auto) 0.3 % (0.0-2.0); Hematocrit 37.9 % (36.0-46.0); Lymphocytes % (auto) 17.3 % (10.0-50.0); Mean Corpuscular Hemoglobin 25.3 pg (28.0-32.0); Mean Corpuscular Hgb Conc. 33.2 g/dL (32.0-36.0); Monocytes % (auto) 5.6 % (0.0-12.0); Neutrophils # (auto) 7.3 10 ^3/uL (1.6-8.6); Neutrophils % (auto) 75.3 % (37.0-80.0); Nucleated Red Blood Cells % 0.1 %; Red Blood Cells 4.98 10^6/uL (4.0-5.20); Red Cell Distribution Width 18.5 % (11.8-14.3); White Blood Cell 9.7 10^3/uL (4.4-10.8)
[2023-02-15 09:26] LABS: Urine Bacteria FEW /hpf (None Seen); Urine Blood Negative /uL (Negative); Urine Clarity HAZY (Clear); Urine Color Colorless (Yellow); Urine Protein, UAD Negative (Negative); Urine Specific Gravity 1.033 (1.001-1.035); Urine Urobilinogen Normal (Negative); Urine WBC 49 /hpf (0 - 5)
[2023-02-15 09:40] LABS: Protein, Urine 6.3 mg/dL (0.0-11.9)
[2023-02-15 09:42] LABS: Creatinine, Urine 79.13 mg/dL (30.0-125.0); Urine Protein/Creatinine Ratio 0.08
[2023-02-15 09:45] LABS: Alanine Aminotransferase 16 U/L (7-40); Albumin 4.7 g/dL (3.2-4.8); Alkaline Phosphatase 104 U/L (46-116); Aspartate Aminotransferase 15 U/L (13-40); BUN/Creatinine Ratio 20.8 (10.0-20.0); Blood Urea Nitrogen 21 mg/dL (9-23); Calcium 9.8 mg/dL (8.5-10.1); Carbon Dioxide 26 mmol/L (20-30); Glucose 210 mg/dL (74-106); Phosphorus 3.2 mg/dL (2.4-5.1)
[2023-02-15 09:46] LABS: Bilirubin, Total 0.4 mg/dL (0.2-1.0); Total Protein 7.9 g/dL (5.7-8.2)
[2023-02-15 10:56] LABS: Anion Gap 7 (5-15); Chloride 104 mmol/L (98-107); Potassium 4.7 mmol/L (3.5-5.1); Sodium 137 mmol/L (136-145)
== END | disposition home or self-care (01) ==
LOC: LAB 08:52
PROVIDERS: ATTEND Student in an Organized Health Care Education/Training Program
DX: E11.22 Type 2 diabetes mellitus with diabetic chronic kidney disease (principal); N18.31 Chronic kidney disease, stage 3a; D63.1 Anemia in chronic kidney disease; R80.9 Proteinuria, unspecified; R82.90 Unspecified abnormal findings in urine; E83.39 Other disorders of phosphorus metabolism; R76.0 Raised antibody titer
CPT/HCPCS: 36415; 80053; 81001; 82570; 83036; 84100; 84156; 85025; 86038

== ENCOUNTER → 2023-02-28 | Outpatient (CLI) | payer OTHER, MEDICAID ==
[~2023-02-28] MED LIST changes: +ALBUTEROL SULF 2.5 MG/0.5ML(0.5%) NEB SOLN ONE
== END | disposition home or self-care (01) ==
LOC: RT 08:17
PROVIDERS: ATTEND Student in an Organized Health Care Education/Training Program
DX: J98.01 Acute bronchospasm (principal); R06.09 Other forms of dyspnea
CPT/HCPCS: 94060; 94727; 94729

== ENCOUNTER → 2023-03-28 | Outpatient (CLI) | payer OTHER, MEDICAID ==
[~2023-03-28] MED LIST changes: -ALBUTEROL SULF 2.5 MG/0.5ML(0.5%) NEB SOLN ONE
== END | disposition home or self-care (01) ==
LOC: LAB 10:19
PROVIDERS: ATTEND Internal Medicine
DX: E55.9 Vitamin D deficiency, unspecified (principal)
CPT/HCPCS: 82306

== ENCOUNTER → 2023-07-05 | Outpatient (CLI) | payer OTHER ==
[~2023-07-05] VITALS: Ht 162.6 cm; Wt 63.5 kg
[~2023-07-05] MED LIST changes: +ADENOSINE 53 MG in GIVE UN-DILUTED 0 ML IV ONE; +ADENOSINE 90 MG/30 ML INJ IV ONE
== END | disposition home or self-care (01) ==
LOC: Rad HDHVI 12:59
PROVIDERS: ATTEND Internal Medicine Cardiovascular Disease
DX: I12.9 Hypertensive chronic kidney disease with stage 1 through stage 4 chronic kidney disease, or unspecified chronic kidney disease (principal); N18.9 Chronic kidney disease, unspecified; E11.22 Type 2 diabetes mellitus with diabetic chronic kidney disease; I25.10 Atherosclerotic heart disease of native coronary artery without angina pectoris; R06.02 Shortness of breath; I25.2 Old myocardial infarction; Z82.49 Family history of ischemic heart disease and other diseases of the circulatory system
CPT/HCPCS: 78452; 93005; 96374; 96375; A9500; J0153

== ENCOUNTER → 2023-08-11 | Outpatient (CLI) | payer OTHER ==
[~2023-08-11] MED LIST changes: -ADENOSINE 53 MG in GIVE UN-DILUTED 0 ML IV ONE; -ADENOSINE 90 MG/30 ML INJ IV ONE
[2023-08-11 08:45] LABS: Basophils # (auto) 0 10 ^3/uL (0-0.2); Basophils % (auto) 0.3 % (0.0-2.0); Hemoglobin 12.8 g/dL (12.2-16.2); Monocytes # (auto) 0.7 10 ^3/uL (0-1.3)
[2023-08-11 08:47] LABS: Eosinophils # (auto) 0.1 10 ^3/uL (0-0.8); Eosinophils % (auto) 1.4 % (0.0-7.0); Hematocrit 38.9 % (36.0-46.0); Lymphocytes # (auto) 1.6 10 ^3/uL (0.4-5.4); Lymphocytes % (auto) 16.2 % (10.0-50.0); Mean Corpuscular Hemoglobin 26.4 pg (28.0-32.0); Mean Corpuscular Hgb Conc. 32.9 g/dL (32.0-36.0); Mean Corpuscular Volume 80.2 fL (80.0-100.0); Monocytes % (auto) 7.4 % (0.0-12.0); Neutrophils # (auto) 7.5 10 ^3/uL (1.6-8.6); Neutrophils % (auto) 74.7 % (37.0-80.0); Red Blood Cells 4.85 10^6/uL (4.0-5.20); Red Cell Distribution Width 16.9 % (11.8-14.3); White Blood Cell 10.1 10^3/uL (4.4-10.8)
[2023-08-11 09:04] LABS: Urine Bacteria NONE SEEN /hpf (None Seen); Urine Blood Negative /uL (Negative); Urine Clarity HAZY (Clear); Urine Color Colorless (Yellow); Urine Protein, UAD Negative (Negative); Urine Specific Gravity 1.028 (1.001-1.035); Urine Urobilinogen Normal (Negative); Urine WBC 82 /hpf (0 - 5)
[2023-08-11 09:27] LABS: Alanine Aminotransferase 19 U/L (7-40); Albumin 4.5 g/dL (3.2-4.8); Alkaline Phosphatase 135 U/L (46-116); Anion Gap 6 (5-15); Aspartate Aminotransferase 21 U/L (13-40); BUN/Creatinine Ratio 26.3 (10.0-20.0); Bilirubin, Total 0.4 mg/dL (0.2-1.0); Blood Urea Nitrogen 26 mg/dL (9-23); Calcium 9.6 mg/dL (8.5-10.1); Carbon Dioxide 27 mmol/L (20-30); Chloride 104 mmol/L (98-107); Cholesterol 118 mg/dL (< 200); Glucose 195 mg/dL (74-106); HDL Cholesterol 27 mg/dL (40-59); LDL Cholesterol 67 mg/dL (< 100); Potassium 4.4 mmol/L (3.5-5.1); Sodium 137 mmol/L (136-145); Total Protein 7.2 g/dL (5.7-8.2); Triglycerides 183 mg/dL (< 150)
[2023-08-11 09:38] LABS: Protein, Urine 10.7 mg/dL (0.0-11.9)
[2023-08-11 09:40] LABS: Creatinine, Urine 60.78 mg/dL (30.0-125.0); Urine Protein/Creatinine Ratio 0.18
== END | disposition home or self-care (01) ==
LOC: LAB 08:30
PROVIDERS: ATTEND Student in an Organized Health Care Education/Training Program
DX: N18.31 Chronic kidney disease, stage 3a (principal); E11.22 Type 2 diabetes mellitus with diabetic chronic kidney disease; R82.90 Unspecified abnormal findings in urine; R80.9 Proteinuria, unspecified; D63.1 Anemia in chronic kidney disease
CPT/HCPCS: 36415; 80053; 80061; 81001; 82306; 82570; 83036; 84156; 85025

== ENCOUNTER → 2024-02-14 | Outpatient (CLI) | payer OTHER, MEDICAID ==
[2024-02-14 08:45] LABS: Basophils # (auto) 0 10 ^3/uL (0-0.2); Basophils % (auto) 0.3 % (0.0-2.0); Eosinophils # (auto) 0.2 10 ^3/uL (0-0.8); Eosinophils % (auto) 1.6 % (0.0-7.0); Hematocrit 41.2 % (36.0-46.0); Hemoglobin 14.2 g/dL (12.2-16.2); Lymphocytes # (auto) 1.6 10 ^3/uL (0.4-5.4); Lymphocytes % (auto) 15.1 % (10.0-50.0); Mean Corpuscular Hemoglobin 27.9 pg (28.0-32.0); Mean Corpuscular Hgb Conc. 34.6 g/dL (32.0-36.0); Mean Corpuscular Volume 80.6 fL (80.0-100.0); Monocytes # (auto) 0.6 10 ^3/uL (0-1.3); Monocytes % (auto) 5.4 % (0.0-12.0); Neutrophils # (auto) 8.1 10 ^3/uL (1.6-8.6); Neutrophils % (auto) 77.6 % (37.0-80.0); Platelet Count (auto) 275 10^3/uL (140-450); Red Blood Cells 5.11 10^6/uL (4.0-5.20); Red Cell Distribution Width 16.5 % (11.8-14.3); White Blood Cell 10.4 10^3/uL (4.4-10.8)
[2024-02-14 09:28] LABS: Protein, Urine 20.8 mg/dL (0.0-11.9)
[2024-02-14 09:29] LABS: Alanine Aminotransferase 19 U/L (7-40); Alkaline Phosphatase 131 U/L (46-116); Anion Gap 9 (5-15); Calcium 10.2 mg/dL (8.7-10.4); Carbon Dioxide 26 mmol/L (20-30); Chloride 104 mmol/L (98-107); Creatinine, Urine 171.59 mg/dL (30.0-125.0); Glucose 174 mg/dL (74-106); Potassium 4.4 mmol/L (3.5-5.1); Sodium 139 mmol/L (136-145); Urine Protein/Creatinine Ratio 0.12
[2024-02-14 09:30] LABS: BUN/Creatinine Ratio 25.5 (10.0-20.0); Blood Urea Nitrogen 27 mg/dL (9-23)
[2024-02-14 09:31] LABS: Albumin 4.7 g/dL (3.2-4.8); Aspartate Aminotransferase 16 U/L (13-40)
[2024-02-14 09:32] LABS: Bilirubin, Total 0.5 mg/dL (0.2-1.0); Total Protein 7.8 g/dL (5.7-8.2)
[2024-02-14 09:46] LABS: Urine Bacteria FEW /hpf (None Seen); Urine Blood Negative /uL (Negative); Urine Clarity Ex.Turbid (Clear); Urine Protein, UAD TRACE (Negative); Urine Specific Gravity 1.035 (1.001-1.035); Urine Urobilinogen Normal (Negative); Urine WBC 377 /hpf (0 - 5)
[2024-02-14 09:47] LABS: Urine Color Light Yellow (Yellow)
== END | disposition home or self-care (01) ==
LOC: LAB 08:24
PROVIDERS: ATTEND Student in an Organized Health Care Education/Training Program
DX: E11.22 Type 2 diabetes mellitus with diabetic chronic kidney disease (principal); N18.31 Chronic kidney disease, stage 3a; D63.1 Anemia in chronic kidney disease; R82.90 Unspecified abnormal findings in urine; R80.9 Proteinuria, unspecified
CPT/HCPCS: 36415; 80053; 81001; 82043; 82306; 82570; 83036; 84156; 85025

== ENCOUNTER → 2024-03-01 | Outpatient (CLI) | payer OTHER, MEDICAID ==
[2024-03-01 08:49] LABS: Basophils # (auto) 0 10 ^3/uL (0-0.2); Basophils % (auto) 0.1 % (0.0-2.0); Eosinophils # (auto) 0.1 10 ^3/uL (0-0.8); Hematocrit 43.2 % (36.0-46.0); Hemoglobin 14.9 g/dL (12.2-16.2); Lymphocytes # (auto) 1.5 10 ^3/uL (0.4-5.4); Lymphocytes % (auto) 15.8 % (10.0-50.0); Mean Corpuscular Hemoglobin 28.4 pg (28.0-32.0); Mean Corpuscular Hgb Conc. 34.5 g/dL (32.0-36.0); Mean Corpuscular Volume 82.2 fL (80.0-100.0); Monocytes # (auto) 0.6 10 ^3/uL (0-1.3); Monocytes % (auto) 6.3 % (0.0-12.0); Neutrophils # (auto) 7.3 10 ^3/uL (1.6-8.6); Neutrophils % (auto) 76.8 % (37.0-80.0); Platelet Count (auto) 247 10^3/uL (140-450); Red Blood Cells 5.25 10^6/uL (4.0-5.20); Red Cell Distribution Width 16.4 % (11.8-14.3); White Blood Cell 9.6 10^3/uL (4.4-10.8)
[2024-03-01 08:58] LABS: Alanine Aminotransferase 25 U/L (7-40); Albumin 4.8 g/dL (3.2-4.8); Alkaline Phosphatase 130 U/L (46-116); Anion Gap 9 (5-15); Aspartate Aminotransferase 22 U/L (13-40); BUN/Creatinine Ratio 24.3 (10.0-20.0); Bilirubin, Total 0.7 mg/dL (0.2-1.0); Blood Urea Nitrogen 25 mg/dL (9-23); Calcium 10.5 mg/dL (8.7-10.4); Carbon Dioxide 25 mmol/L (20-31); Chloride 103 mmol/L (98-107); Glucose 182 mg/dL (74-106); Potassium 4.4 mmol/L (3.5-5.1); Sodium 137 mmol/L (136-145); Total Protein 7.8 g/dL (5.7-8.2)
[2024-03-01 09:43] LABS: Creatinine, Urine 97.63 mg/dL (30.0-125.0)
== END | disposition home or self-care (01) ==
LOC: LAB 08:08
PROVIDERS: ATTEND Internal Medicine
DX: I12.9 Hypertensive chronic kidney disease with stage 1 through stage 4 chronic kidney disease, or unspecified chronic kidney disease (principal); E11.22 Type 2 diabetes mellitus with diabetic chronic kidney disease; N18.9 Chronic kidney disease, unspecified; E11.69 Type 2 diabetes mellitus with other specified complication; E78.2 Mixed hyperlipidemia; R74.8 Abnormal levels of other serum enzymes; R71.8 Other abnormality of red blood cells
CPT/HCPCS: 36415; 80053; 82043; 82570; 83036; 85025

== ENCOUNTER → 2024-03-25 | Outpatient (CLI) | payer OTHER, MEDICAID ==
[2024-03-25 14:43] LABS: Basophils # (auto) 0.1 10 ^3/uL (0-0.2); Basophils % (auto) 0.4 % (0.0-2.0); Eosinophils # (auto) 0.2 10 ^3/uL (0-0.8); Eosinophils % (auto) 1.4 % (0.0-7.0); Hematocrit 43.8 % (36.0-46.0); Hemoglobin 14.7 g/dL (12.2-16.2); Lymphocytes # (auto) 1.8 10 ^3/uL (0.4-5.4); Lymphocytes % (auto) 16.1 % (10.0-50.0); Mean Corpuscular Hemoglobin 27.6 pg (28.0-32.0); Mean Corpuscular Hgb Conc. 33.5 g/dL (32.0-36.0); Mean Corpuscular Volume 82.4 fL (80.0-100.0); Monocytes # (auto) 0.7 10 ^3/uL (0-1.3); Monocytes % (auto) 5.9 % (0.0-12.0); Neutrophils # (auto) 8.7 10 ^3/uL (1.6-8.6); Neutrophils % (auto) 76.2 % (37.0-80.0); Nucleated Red Blood Cells % 0.2 %; Platelet Count (auto) 279 10^3/uL (140-450); Red Blood Cells 5.31 10^6/uL (4.0-5.20); Red Cell Distribution Width 16.4 % (11.8-14.3); White Blood Cell 11.4 10^3/uL (4.4-10.8)
[2024-03-25 15:04] LABS: Partial Thromboplastin Time 26.4 SEC (24.5-34.5); Prothrombin Time 10.6 sec (9.3-11.8)
[2024-03-25 15:27] LABS: Alanine Aminotransferase 22 U/L (7-40); Albumin 4.8 g/dL (3.2-4.8); Alkaline Phosphatase 134 U/L (46-116); Anion Gap 7 (5-15); Aspartate Aminotransferase 17 U/L (13-40); BUN/Creatinine Ratio 21.5 (10.0-20.0); Blood Urea Nitrogen 23 mg/dL (9-23); Calcium 10.5 mg/dL (8.7-10.4); Carbon Dioxide 28 mmol/L (20-31); Chloride 102 mmol/L (98-107); Glucose 124 mg/dL (74-106); Potassium 4.2 mmol/L (3.5-5.1); Sodium 137 mmol/L (136-145)
[2024-03-25 15:28] LABS: Bilirubin, Total 0.6 mg/dL (0.2-1.0)
== END | disposition home or self-care (01) ==
LOC: LAB 14:24
PROVIDERS: ATTEND Internal Medicine
DX: Z01.812 Encounter for preprocedural laboratory examination (principal)
CPT/HCPCS: 36415; 80053; 85025; 85610; 85730

== ENCOUNTER 2024-03-27 10:59 | Day surgery (SDC) | payer OTHER, MEDICAID ==
[~2024-03-27] VITALS: Ht 162.6 cm; Wt 63.0 kg
[~2024-03-27 10:59] MED LIST changes: +ALBU0.08 HHN; -APIX5TAB PO; +ATOR-507 PO; +CHOL10006 PO; -CHOL20007 PO; +EMPA1TAB PO; -FENO160T PO; +FLUT500M2 INH; -GEMF-66 PO; -GLIM4TAB42 PO; +INSLISPI SC; -INSU1INJ19 SC; +INSUINJ37 SC; -LIRA18IN2 SUBCUT; +LOSA-534 PO; -METF-372 PO; +MONT-8 OR
[2024-03-27] MEDS ORDERED: IODIXANOL 320MG/ML 100ML BTL IV ONE (12:57)
[2024-03-27] MEDS ORDERED: HEPARIN IN NS 1000Units/500mL 1,500 ML ONE (12:57)
[2024-03-27] MEDS ORDERED: fentaNYL CITRATE 100 MCG/2 ML VL ONE (13:12)
[2024-03-27] MEDS ORDERED: HEPARIN SODIUM (PORCINE) 5000 UNITS/ML 1ML VIAL ONE (13:12)
[2024-03-27] MEDS ORDERED: SODIUM CHL 0.9% 0 ML ONE (13:12)
[2024-03-27] MEDS ORDERED: MIDAZOLAM HCL 2MG/2ML 2ml VIAL (1mg/ml) ONE (13:12)
[2024-03-27] MEDS ORDERED: LIDOCAINE 2%HCL (LOCAL ANESTH.) INJ 20ML MDV ONE (13:12)
[2024-03-27] MEDS ORDERED: VERAPAMIL 2.5MG/ML INJ 2ML VIAL IV ONE (13:12)
[2024-03-27] MEDS ORDERED: ANGIOMAX 250 MG VIAL IV ONE (13:12)
== END 2024-03-27 15:40 | disposition home or self-care (01) ==
LOC: CATH 10:59
PROVIDERS: ATTEND Internal Medicine
DX: I25.10 Atherosclerotic heart disease of native coronary artery without angina pectoris (principal); Z88.0 Allergy status to penicillin
CPT/HCPCS: 75580; 93458; C1887; C1894; J1644; J2250; J3010; Q9967; 99152

== ENCOUNTER → 2024-08-06 | Outpatient (CLI) | payer OTHER, MEDICAID ==
[2024-08-06 09:45] LABS: Urine Bacteria None Seen /hpf (None Seen)
[2024-08-06 10:00] LABS: Basophils # (auto) 0 10 ^3/uL (0-0.2); Basophils % (auto) 0.4 % (0.0-2.0); Eosinophils # (auto) 0.1 10 ^3/uL (0-0.8); Eosinophils % (auto) 1.6 % (0.0-7.0); Hematocrit 39.7 % (36.0-46.0); Hemoglobin 13.7 g/dL (12.2-16.2); Lymphocytes # (auto) 1.7 10 ^3/uL (0.4-5.4); Lymphocytes % (auto) 18.2 % (10.0-50.0); Mean Corpuscular Hemoglobin 28.7 pg (28.0-32.0); Mean Corpuscular Hgb Conc. 34.5 g/dL (32.0-36.0); Mean Corpuscular Volume 83.1 fL (80.0-100.0); Monocytes # (auto) 0.5 10 ^3/uL (0-1.3); Monocytes % (auto) 5.9 % (0.0-12.0); Neutrophils # (auto) 6.8 10 ^3/uL (1.6-8.6); Neutrophils % (auto) 73.9 % (37.0-80.0); Nucleated Red Blood Cells % 0.1 %; Platelet Count (auto) 253 10^3/uL (140-450); Red Blood Cells 4.77 10^6/uL (4.0-5.20); Red Cell Distribution Width 15.2 % (11.8-14.3); White Blood Cell 9.2 10^3/uL (4.4-10.8)
[2024-08-06 10:09] LABS: Alanine Aminotransferase 25 U/L (7-40); Albumin 4.7 g/dL (3.2-4.8); Anion Gap 6 (5-15); Aspartate Aminotransferase 20 U/L (13-40); Bilirubin, Total 0.5 mg/dL (0.2-1.0); Blood Urea Nitrogen 18 mg/dL (9-23); Carbon Dioxide 26 mmol/L (20-31); Chloride 103 mmol/L (98-107); Cholesterol 117 mg/dL (< 200); LDL Cholesterol 61 mg/dL (< 100); Potassium 4.1 mmol/L (3.5-5.1); Total Protein 7.5 g/dL (5.7-8.2)
[2024-08-06 10:13] LABS: Alkaline Phosphatase 124 U/L (46-116); Glucose 150 mg/dL (74-106); HDL Cholesterol 27 mg/dL (40-59); Sodium 135 mmol/L (136-145); Triglycerides 164 mg/dL (< 150)
[2024-08-06 10:31] LABS: Urine Blood Negative /uL (Negative); Urine Clarity Turbid (Clear); Urine Color Yellow (Yellow); Urine Mucus FEW (None Seen); Urine Protein, UAD Negative (Negative); Urine Specific Gravity 1.023 (1.001-1.035); Urine Squamous Epithelial Cell FEW /hpf (<5); Urine Urobilinogen 2 mg/dL (Negative); Urine WBC 57 /HPF (0-5); Urine pH 5.5 (5.0-9.0)
[2024-08-06 10:34] LABS: Protein, Urine 13.7 mg/dL (1-14)
[2024-08-06 10:35] LABS: Creatinine, Urine 133.52 mg/dL (30.0-125.0); Urine Protein/Creatinine Ratio 0.1
== END | disposition home or self-care (01) ==
LOC: LAB 09:26
PROVIDERS: ATTEND Internal Medicine
DX: I12.9 Hypertensive chronic kidney disease with stage 1 through stage 4 chronic kidney disease, or unspecified chronic kidney disease (principal); E11.22 Type 2 diabetes mellitus with diabetic chronic kidney disease; N18.31 Chronic kidney disease, stage 3a; E11.21 Type 2 diabetes mellitus with diabetic nephropathy; E11.69 Type 2 diabetes mellitus with other specified complication; E78.5 Hyperlipidemia, unspecified; E55.9 Vitamin D deficiency, unspecified; E21.3 Hyperparathyroidism, unspecified; N39.0 Urinary tract infection, site not specified; M10.9 Gout, unspecified; R74.8 Abnormal levels of other serum enzymes; R80.9 Proteinuria, unspecified; Z00.01 Encounter for general adult medical examination with abnormal findings; D63.1 Anemia in chronic kidney disease
CPT/HCPCS: 36415; 80053; 80061; 81001; 82306; 82570; 83036; 84156; 84439; 84443; 85025

== ENCOUNTER → 2024-12-13 | Outpatient (CLI) | payer OTHER, MEDICAID | END | disposition home or self-care (01) | LOC: LAB 08:44 | PROVIDERS: ATTEND Internal Medicine | DX: Z12.11 Encounter for screening for malignant neoplasm of colon (principal) | CPT/HCPCS: 82270 ==

== ENCOUNTER 2025-02-11 07:32 | Outpatient (CLI) | payer OTHER, MEDICAID ==
[2025-02-11 08:16] LABS: Hematocrit 43.9 % (36.0-46.0); Hemoglobin 15.1 g/dL (12.2-16.2); Mean Corpuscular Hemoglobin 28.9 pg (28.0-32.0); Mean Corpuscular Volume 83.8 fL (80.0-100.0); Nucleated Red Blood Cells % 0.0 %
[2025-02-11 08:22] LABS: Urine Protein, UAD Negative (Negative)
[2025-02-11 08:26] LABS: Alanine Aminotransferase 27 U/L (7-40); Albumin 4.8 g/dL (3.2-4.8); Alkaline Phosphatase 123 U/L (46-116); Anion Gap 10 (5-15); BUN/Creatinine Ratio 22.8 (10.0-20.0); Bilirubin, Total 0.5 mg/dL (0.2-1.0); Blood Urea Nitrogen 23 mg/dL (9-23); Calcium 10.0 mg/dL (8.7-10.4); Carbon Dioxide 26 mmol/L (20-31); Chloride 104 mmol/L (98-107); Glucose 134 mg/dL (74-106); Potassium 4.5 mmol/L (3.5-5.1); Sodium 140 mmol/L (136-145); Total Protein 8.0 g/dL (5.7-8.2)
[2025-02-11 08:54] LABS: Protein, Urine 8.1 mg/dL (1-14)
== END 2025-02-11 17:00 | disposition home or self-care (01) ==
LOC: LAB 07:32
PROVIDERS: ATTEND Student in an Organized Health Care Education/Training Program
DX: I12.9 Hypertensive chronic kidney disease with stage 1 through stage 4 chronic kidney disease, or unspecified chronic kidney disease (principal); E11.22 Type 2 diabetes mellitus with diabetic chronic kidney disease; N18.30 Chronic kidney disease, stage 3 unspecified; E11.21 Type 2 diabetes mellitus with diabetic nephropathy; E21.3 Hyperparathyroidism, unspecified; E55.9 Vitamin D deficiency, unspecified; N39.0 Urinary tract infection, site not specified; D63.1 Anemia in chronic kidney disease; M10.9 Gout, unspecified; R80.9 Proteinuria, unspecified
CPT/HCPCS: 36415; 80053; 81001; 82306; 82570; 83036; 84156; 85025

== ENCOUNTER 2025-05-09 10:09 | Outpatient (CLI) | payer OTHER, MEDICAID | END 2025-05-09 17:00 | disposition home or self-care (01) | LOC: LAB 10:09 | PROVIDERS: ATTEND Internal Medicine | DX: E55.9 Vitamin D deficiency, unspecified (principal); M81.0 Age-related osteoporosis without current pathological fracture | CPT/HCPCS: 82306 ==